=== PATIENT | female | born 1990 | race Caucasian/White ===

== ENCOUNTER 2018-11-22 12:49 | Emergency (ER) | payer MEDICAID, OTHER ==
[2018-11-22 13:10] VITALS: BP 119/76
--- NOTE | 2018-11-22 13:19 | ER Report ---
History and Physical Time Seen By MD: 13:10 HPI/ROS CHIEF COMPLAINT: direct admit to [facility] HISTORY OF PRESENT ILLNESS: Pt states she was in [facility] waiting to go to our psych floor. PT was accepted by Dr. Casey a few days ago as a direct admit to [facility] and has been awaiting for bed availablity. Bed became available. PT is not forthcoming with information. "your not the psychatrist". Pt denies wanting to kill herself. PT states they have been giving her the wrong medications in [facility] and that is why I am crazy. REVIEW OF SYSTEMS: PT refusing to answer accepts did say she felt "bloated". Allergies: Coded Allergies: latex (Verified Allergy, Unknown, RASH, 11/22/18) yi (Verified Allergy, Unknown, RASH, 11/22/18) acetaminophen (Verified Adverse Reaction, Unknown, MENTAL STATUS CHANGES, 11/22/18) aspirin (Verified Adverse Reaction, Unknown, 11/22/18) bruises hydrocodone (Verified Adverse Reaction, Unknown, MENTAL STATUS CHANGES, 11/22/18) Home Meds Reported Medications Diphenhydramine Hcl (BENADRYL) 25 Mg Capsule, 50 MG PO HS, CAPSULE 11/22/18 Quetiapine Fumarate (SEROQUEL) 400 Mg Tablet, 400 MG PO HS 11/22/18 Hydrocortisone 2.5% Oint (HYDROCORTISONE 2.5% OINT) 453.6 Gm Oint...g., 453.6 GM TP, TUBE 11/22/18 Spironolactone (SPIRONOLACTONE) 25 Mg Tablet, 100 MG PO BID, TAB 11/22/18 Doxycycline Hyclate (DOXYCYCLINE HYCLATE) 100 Mg Tablet, 100 MG PO BID 11/22/18 Levothyroxine Sodium (LEVOTHYROXINE SODIUM) 75 Mcg Tablet, 75 MCG PO QDAY, TAB 11/22/18 Past Medical/Surgical History pmhx: schizoaffective, fibromyalgia Pshx: c-s Reviewed Nurses Notes: Yes Hx Smoking: No Hx Alcohol Use: No Constitutional Vital Sign - Last 24 Hours 11/22/18 13:10 Temp 98.7 Pulse 98 Resp 18 B/P (MAP) 119/76 Pulse Ox 94 O2 Delivery Room Air Physical Exam General Appearance: The patient is alert, has no immediate need for airway protection and no signs of toxicity. Eyes: Pupils equal and round no pallor or injection ENT: no pharyngeal erythema or exudates, Mucous membranes are moist Respiratory: There are no retractions, lungs are clear to auscultation. Cardiovascular: Regular rate and rhythm. pulses are equal and symmetrical Gastrointestinal: Abdomen is soft and non tender, bowel sounds normal, no guarding, no rigidity or rebound Neurological: Cranial nerves II-XII grossly intact, no sensory or motor loss Musculoskeletal: ambulatory Psych: Tangential thought process DIFFERENTIAL DIAGNOSIS: After history and physical exam differential diagnosis was considered for medication adjustment, schizoaffecive Medical Decision Making Data Points Result Diagram: 11/22/18 1340 11/22/18 1340 Laboratory Hematology Test 11/22/18 13:40 Red Blood Count 4.85 M/uL (4.17-5.56) Mean Corpuscular Volume 92.9 fL (80.0-96.0) Mean Corpuscular Hemoglobin 31.7 pg (26.0-33.0) Mean Corpuscular Hemoglobin Concent 34.1 g/dL (32.0-36.0) Red Cell Distribution Width 13.7 % (11.5-14.5) Mean Platelet Volume 7.5 fL (7.2-11.1) Neutrophils (%) (Auto) 54.2 % (39.4-72.5) Lymphocytes (%) (Auto) 30.4 % (17.6-49.6) Monocytes (%) (Auto) 11.2 % (4.1-12.4) Eosinophils (%) (Auto) 3.2 % (0.4-6.7) Basophils (%) (Auto) 1.0 % (0.3-1.4) Nucleated RBC Relative Count (auto) 0.0 /100WBC Neutrophils # (Auto) 4.1 K/uL (2.0-7.4) Lymphocytes # (Auto) 2.3 K/uL (1.3-3.6) Monocytes # (Auto) 0.8 K/uL (0.3-1.0) Eosinophils # (Auto) 0.2 K/uL (0.0-0.5) Basophils # (Auto) 0.1 K/uL (0.0-0.1) Nucleated RBC Absolute Count (auto) 0.00 K/uL Sodium Level 139 mmol/L (137-145) Potassium Level 4.0 mmol/L (3.5-5.0) Chloride Level 110 mmol/L (98-107) Carbon Dioxide Level 24 mmol/L (22-31) Blood Urea Nitrogen 11 mg/dl (7-18) Creatinine 0.60 mg/dl (0.52-1.04) Glomerular Filtration Rate Calc > 60.0 Random Glucose 93 mg/dl (75-110) Calcium Level 8.9 mg/dl (8.4-10.2) Magnesium Level 2.0 mg/dl (1.7-2.2) Total Bilirubin 0.2 mg/dl (0.2-1.3) Aspartate Amino Transf (AST/SGOT) 25 U/L (0-35) Alanine Aminotransferase (ALT/SGPT) 25 U/L (0-56) Alkaline Phosphatase 61 U/L (0-126) Total Protein 7.9 g/dl (6.3-8.2) Albumin 4.5 g/dl (3.5-5.0) Human Chorionic Gonadotropin, Qual Negative (NEGATIVE) Salicylates Level < 10 mg/L Salicylate Last Dose Date unknown Acetaminophen Level < 10 ug/ml Serum Alcohol < 10 mg/dl Chemistry Test 11/22/18 13:40 White Blood Count 7.6 k/uL (4.5-11.0) Red Blood Count 4.85 M/uL (4.17-5.56) Hemoglobin 15.4 g/dL (12.0-16.0) Hematocrit 45.0 % (34.0-47.0) Mean Corpuscular Volume 92.9 fL (80.0-96.0) Mean Corpuscular Hemoglobin 31.7 pg (26.0-33.0) Mean Corpuscular Hemoglobin Concent 34.1 g/dL (32.0-36.0) Red Cell Distribution Width 13.7 % (11.5-14.5) Platelet Count 360 K/uL (150-450) Mean Platelet Volume 7.5 fL (7.2-11.1) Neutrophils (%) (Auto) 54.2 % (39.4-72.5) Lymphocytes (%) (Auto) 30.4 % (17.6-49.6) Monocytes (%) (Auto) 11.2 % (4.1-12.4) Eosinophils (%) (Auto) 3.2 % (0.4-6.7) Basophils (%) (Auto) 1.0 % (0.3-1.4) Nucleated RBC Relative Count (auto) 0.0 /100WBC Neutrophils # (Auto) 4.1 K/uL (2.0-7.4) Lymphocytes # (Auto) 2.3 K/uL (1.3-3.6) Monocytes # (Auto) 0.8 K/uL (0.3-1.0) Eosinophils # (Auto) 0.2 K/uL (0.0-0.5) Basophils # (Auto) 0.1 K/uL (0.0-0.1) Nucleated RBC Absolute Count (auto) 0.00 K/uL Glomerular Filtration Rate Calc > 60.0 Calcium Level 8.9 mg/dl (8.4-10.2) Magnesium Level 2.0 mg/dl (1.7-2.2) Total Bilirubin 0.2 mg/dl (0.2-1.3) Aspartate Amino Transf (AST/SGOT) 25 U/L (0-35) Alanine Aminotransferase (ALT/SGPT) 25 U/L (0-56) Alkaline Phosphatase 61 U/L (0-126) Total Protein 7.9 g/dl (6.3-8.2) Albumin 4.5 g/dl (3.5-5.0) Human Chorionic Gonadotropin, Qual Negative (NEGATIVE) Salicylates Level < 10 mg/L Salicylate Last Dose Date unknown Acetaminophen Level < 10 ug/ml Serum Alcohol < 10 mg/dl Toxicology Test 11/22/18 13:40 Salicylates Level < 10 mg/L Salicylate Last Dose Date unknown Acetaminophen Level < 10 ug/ml Serum Alcohol < 10 mg/dl ED Course/Re-evaluation ED Course 11/22/2018 1:12:32 pm PT was to be a direct admission to [facility] from [facility] but while awaiting bed availability she was in Custodial. Dr. Capellan asked if we could do a screening exam due to pt spent few days in [facility] and then can go upstairs. States she can do the blood work upstairs. Blood work drawn and pt placed in gown. Pt sent to [facility] Decision to Disposition Date: Nov 22, 2018 Decision to Disposition Time: 14:23 Depart Departure Latest Vital Signs Vital Signs Date Time Temp Pulse Resp B/P (MAP) Pulse Ox O2 Delivery O2 Flow Rate FiO2 11/22/18 13:10 98.7 98 18 119/76 94 Room Air Impression: Primary Impression: Encounter for medical screening examination Additional Impression: Schizo affective schizophrenia Condition: Stable Disposition: XFER TO [facility] Problem Qualifiers COTY LUCIANO DO Nov 22, 2018 13:19
[2018-11-22] MEDS ORDERED: DIPH-740 PO (13:20)
[2018-11-22] MEDS ORDERED: QUET400T11 PO (13:20)
[2018-11-22] MEDS ORDERED: DOXY-179 PO (13:20)
[2018-11-22] MEDS ORDERED: LEVO75TA73 PO (13:20)
[2018-11-22] MEDS ORDERED: HYDR453.8 TP (13:20)
[2018-11-22] MEDS ORDERED: SPIR25TA80 PO (13:20)
[2018-11-22 13:57] LABS: PLATELET COUNT, AUTOMATED 360 K/uL (150-450)
[2018-11-22] MEDS ORDERED: SPIR100T33 PO (17:16)
[2018-11-22] MEDS ORDERED: PRAZ1CAP26 PO (17:17)
== END 2018-11-22 13:52 ==
LOC: ER 13:36
DX: F25.9 Schizoaffective disorder, unspecified (principal)
CPT/HCPCS: 36415; 83735; 84443; 84703; 85025; 99284; G0480; 80320; 80329; 82040; 82247; 82310; 82374; 82435; 82565; 82947; 84075; 84132; 84155; 84295; 84450; 84460; 84520

== ENCOUNTER 2018-11-22 13:37 | Inpatient (IN) | payer MEDICAID, OTHER ==
[~2018-11-22] VITALS: Ht 165.1 cm; Wt 98.0 kg
[~2018-11-22 13:37] MED LIST: DIPH-740 PO; DOXY-179 PO; HYDR453.8 TP; LEVO75TA73 PO; QUET400T11 PO; SPIR25TA80 PO
[2018-11-22 13:55] VITALS: BP 120/80
[2018-11-22] MEDS ORDERED: SPIR100T33 PO (17:16)
[2018-11-22] MEDS ORDERED: PRAZ1CAP26 PO (17:17)
[2018-11-22] MEDS ORDERED: MAG HYD/AL HYD/SIMETH 30ML UDC PO PRN (17:20)
[2018-11-22] MEDS ORDERED: LORazepam 1 MG TAB PO PRN (17:35)
[2018-11-22 19:54] VITALS: BP 127/84
[2018-11-22] MEDS: SPIRONOLACTONE 25 MG TAB PO SCH (20:22)
[2018-11-22] MEDS: QUEtiapine FUM 100 MG TAB PO SCH (20:22)
[2018-11-22] MEDS ORDERED: diphenhydrAMINE 25 MG CAP PO ONE (21:00)
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
[2018-11-23 06:15] VITALS: BP 109/87
--- NOTE | 2018-11-23 06:18 | NUR ---
Patient reports sleeping well during the night, reports prior to falling asleep "hearing voices again." States she doesn't remember what they was saying. Was able to go back to sleep after am vitals. Resting with ou closed at this time. No s/s of distress or discomfort noted.
[2018-11-23] MEDS: DOXYCYCLINE HYCL 100 MG TAB PO SCH (08:38)
[2018-11-23] MEDS: SPIRONOLACTONE 25 MG TAB PO SCH ×2 (08:38→20:36)
[2018-11-23] MEDS: LORazepam 1 MG TAB PO SCH ×2 (11:12→20:31)
[2018-11-23 13:05] VITALS: BP 110/60
--- NOTE | 2018-11-23 14:37 | BHS Progress Note ---
BHS - Subjective Progress Notes Subjective Bibi took a PRN Ativan yesterday afternoon for agitation. She finally got to sleep after the Seroquel 800 mgs and slept through the night. She is somewhat less agitated this morning until we started talking about the circumstances of her admission. At this point, she begins to escalate rapidly with pressured speech and making bizarre statements such as her belief that her mother has secret cameras in their house, that the police have been coming into her house and "jacking off." Denies voices today but was hearing voices last night. Denies any desire to harm her mother or son. Suicidal Ideation: None Homicidal Ideation: None BHS - Objective Physical Exam Vital Signs 98.3 71 109/87, 93 Gait and Station: Steady BHS Medications Reviewed: Side Effects, Benefits of Medication Allergies Reviewed: Yes Mental Status Exam General Appearance: Psychomotor Agitation Speech: Other (pressured) Mood: Hyperthymic Affect: Anxious, Agitated Thought Process: Flight of Ideas Thought Content: Delusions, Auditory Halllucinations Sensorium: Clear Cognition: Alert & Oriented-Person, Alert & Oriented-Place, Alert & Oriented- Time, [id number], Other Memory: Immediate, Recent, Remote, Other Insight Judgment: Poor BHS Assessment and Plan [id number] Encounter Date: Nov 23, 2018 [id number] Encounter Time: 10:00 BHS Plan: Admit to Unit, Necessary Precautions, Individual/Group Therapy, Admin/Titrate Meds, Educate Patient Problems: (1) Schizoaffective disorder, bipolar type Condition Will start a routine Ativan 1 mg q 8h and continue other medications as ordered. TAI EVANS DO Nov 23, 2018 14:37
[2018-11-23] MEDS: QUEtiapine FUM 100 MG TAB PO SCH (20:34)
[2018-11-23 21:29] VITALS: BP 101/63
[2018-11-24] MEDS: LORazepam 1 MG TAB PO SCH (03:00)
[2018-11-24 05:44] VITALS: BP 104/83
[2018-11-24] MEDS: DOXYCYCLINE HYCL 100 MG TAB PO SCH (08:27)
[2018-11-24] MEDS: SPIRONOLACTONE 25 MG TAB PO SCH ×2 (08:28→20:20)
[2018-11-24] MEDS ORDERED: LORazepam 1 MG TAB PO SCH ×2 (09:00→17:00)
--- NOTE | 2018-11-24 11:40 | BHS Progress Note ---
[facility] - Subjective Progress Notes Subjective Seroquel 800 mgs at night daily Lorazepam 2 mgs every 8 hours We have stopped levothyroxine, prazosin, Zoloft. Bibi continues to improve. Her speech is much less pressured, she is not longer focusing on delusional ideas, she is less agitated. This morning. She says that she feels "stable" and her mood is "neutral." We are able to have a two-way conversation. She feels a bit drowsy this morning and, although she b elieves that the Ativan has helped her a lot, she does not feel that she needs as much. She denies feeling suicidal now. She says that she has not heard any voices in the last 24 hours. She has been sleeping well without nightmares suggesting that she does not need prazosin. Yesterday, Bibi met with our therapist and was still making a lot of statements with a sexual theme including her belief that her jhdz-rujh-kbc son was wanting her to touch his penis. Suicidal Ideation: None Homicidal Ideation: None [facility] - Objective Physical Exam Vital Signs 98.3, 71, 109/87, 93% Gait and Station: Steady [facility] Medications Reviewed: Side Effects, Benefits of Medication, Risks (specifically discussed the importance of using medications to address her psychotic symptoms and targeting schizoaffective disorder) Allergies Reviewed: Yes Mental Status Exam General Appearance: Casual, Well Groomed, Good Eye Contact, Cooperative, Polite, Good Interaction; No Psychomotor Agitation, No Psychomotor Retardation Speech: Clear, Spontaneous, Normal Rate, Normal Rhythm, Normal Volume, Normal Tone, Delayed, Slurred, Garbled, Rambling, Inappropriate, Other (no longer pressured) Mood: Euthymic; No Hyperthymic Affect: Neutral; No Anxious, No Agitated Thought Process: Logical, Goal Directed; No Flight of Ideas Thought Content: No Suicidal Ideation, No Homicidal Ideation; Delusions (no longer focusing on delusional themes.); No Auditory Halllucinations, No Visual Hallucinations Sensorium: Clear Cognition: Alert & Oriented-Person, Alert & Oriented-Place, Alert & Oriented- Time, Kimer-Rkgkjnjv-Mzgbzebif, Other Memory: Immediate, Recent, Remote, Other Intelligence: Average Insight Judgment: Fair [facility] Assessment and Plan Yyxe-xx-Xort Encounter Date: Nov 24, 2018 Agkw-im-Jbkl Encounter Time: 10:00 [facility] Plan: Necessary Precautions, Individual/Group Therapy, Admin/Titrate Meds, Educate Patient Problems: (1) Schizoaffective disorder, bipolar type Condition Bibi is making steady improvement. We agreed to reduce her lorazepam to once a day in the evenings when she finds her mood is the most difficult. Release planning needs to focus on placement as well as communicating with her outpatient providers that it is essential to target psychotic symptoms and mood instability. I would avoid using medications that could trigger fran, in particular, antidepressants, unless they are absolutely necessary and accompa nied by adequate control of psychotic symptoms and mood stabilizers. TAI EVANS DO Nov 24, 2018 11:39
[2018-11-24 17:51] VITALS: BP 116/62
[2018-11-24] MEDS: QUEtiapine FUM 100 MG TAB PO SCH (20:20)
[2018-11-25] MEDS: DOXYCYCLINE HYCL 100 MG TAB PO SCH (08:11)
[2018-11-25] MEDS: SPIRONOLACTONE 25 MG TAB PO SCH ×2 (08:11→20:54)
--- NOTE | 2018-11-25 10:09 | Antimicrobial Stewardship ---
Antimicrobial Time Out Antimicrobial Stewardship MD Service: Other (Psychiatrist) Indications: Other (acne) Antimicrobial Used Doxycycline 100 mg po qday Start Date: Nov 23, 2018 NASRIN LOBO Nov 25, 2018 10:09
[2018-11-25 14:00] VITALS: BP 102/71
[2018-11-25] MEDS: QUEtiapine FUM 100 MG TAB PO SCH (20:56)
--- NOTE | 2018-11-25 21:35 | BHS Progress Note ---
[facility] - Subjective Progress Notes Subjective Pt seen in treatment team meeting with staff. She continues to be disorganized in her thinking, fran is slowly getting better, but she still has a lot of psychomotor restlessness, hypergraphia-- she brought multiple pages of worksheets covered with writing including in the margins, elaborate pictures she had colored. She c/o feeling a little oversedated. We decided to dc her ativan and continue seroquel 800 mg q HS. She feels the seroquel is helping her "calm down." Her T4 came back as WNL, T3 is still pnd. Slept ok last night, though some awakenings. Still a lot of disorganized thinking and behavior, mild pressure of speech, mood/affect lability. Need to continue aggression precautions in this labile schizoaffective pt who is only slowly stabilizing. Suicidal Ideation: None Homicidal Ideation: None [facility] - Objective Physical Exam Vital Signs Vital Signs 11/24/18 11/25/18 17:51 14:00 Temp 98.4 Pulse 94 Resp 18 B/P (MAP) 102/71 (81) Pulse Ox 97 O2 Delivery Room Air Gait and Station: Steady [facility] Medications Reviewed: Side Effects, Benefits of Medication, Risks Allergies Reviewed: Yes Mental Status Exam General Appearance: Casual, Well Groomed, Good Eye Contact, Cooperative, Polite, Good Interaction, Psychomotor Agitation (wiggling in her seat, shuffling though her papers, showing us multiple pages with hypergraphia) Speech: Spontaneous, Normal Rhythm, Normal Volume, Normal Tone, Other (rapid speech but not pressured) Mood: Euthymic Affect: Neutral, Agitated (mildly) Thought Process: Logical, Goal Directed; No Flight of Ideas Thought Content: No Suicidal Ideation, No Homicidal Ideation; Delusions, Auditory Halllucinations; No Visual Hallucinations, No Thought Broadcasting, No Ideas of Reference, No Obsessions, No Compulsions; Other (alix AH at first but then talking about voices coming out of the heating vents) Sensorium: Clear Cognition: Alert & Oriented-Person, Alert & Oriented-Place, Alert & Oriented- Time, Qoogf-Quqolgps-Lhxqkzvud Memory: Immediate, Recent, Remote Intelligence: Average Insight Judgment: Fair Lab Hematology Test 11/24/18 15:06 Free Thyroxine 0.90 ng/dl (0.78-2.19) Chemistry Test 11/24/18 15:06 Free Thyroxine 0.90 ng/dl (0.78-2.19) [facility] Assessment and Plan Hihc-pq-Dsvm Encounter Date: Nov 25, 2018 Hgwn-ln-Wzlt Encounter Time: 09:00 [facility] Plan: Necessary Precautions, Individual/Group Therapy, Admin/Titrate Meds, Educate Patient Tobacco Medications: Started Multpiple Antipsychotics Used: No Problems: (1) Schizoaffective disorder, bipolar type (2) Iatrogenic hyperthyroidism GEO MARION MD Nov 25, 2018 21:35
[2018-11-26 06:11] VITALS: BP 96/59
[2018-11-26] MEDS: SPIRONOLACTONE 25 MG TAB PO SCH ×3 (07:55→21:05)
[2018-11-26] MEDS: DOXYCYCLINE HYCL 100 MG TAB PO SCH (07:56)
[2018-11-26] MEDS: ACETAMINOPHEN 325 MG TAB PO PRN (10:01)
[2018-11-26 12:56] VITALS: BP 93/74
--- NOTE | 2018-11-26 19:24 | BHS Progress Note ---
[facility] - Subjective Progress Notes Subjective Pt seen in conference room with team. Pt still showing manic and psychotic symptoms, ideas of reference-- talking about other peers here on the unit saying the word "alpha" which made her suspicious because her friend in the music industry wrote a song about "alpha and omega, and I don't know how that's all connected....... Then someone mentioned coconut shrimp, and I was just thinking about that so..." She is quite suspicious about these ideas of reference and can't connect ideas logically enough to express exactly why she is bothered by this. She is tolerating the D/C of ativan yesterday-- there has not been any agitation. She has still been talkative, busy, on the phone, with hypergraphia. No aggression. C/O mild oversedation each am, and wondering if seroquel dose is too high-- but we pointed out that she was on seroquel 1200 mg/day when she was D/C from [facility], also educated that this is only day 4 on 800 mg q hs, so she is likely to adjust to this side effect and tolerate this dose better after about 5-8 days on it. Will apply PPD today, since we are making application to pen[facility] in [place]. If she stabilizes here we might be able to transfer her there rather than [facility]. Suicidal Ideation: None Homicidal Ideation: None [facility] - Objective Physical Exam Vital Signs Vital Signs 11/26/18 11/26/18 06:11 12:56 Temp 98.2 Pulse 80 Resp 15 B/P (MAP) 93/74 (80) Pulse Ox 96 O2 Delivery Room Air Muscle Strength and Tone: WNL Gait and Station: Steady [facility] Medications Reviewed: Side Effects, Benefits of Medication, Risks Allergies Reviewed: Yes Mental Status Exam General Appearance: Casual, Well Groomed, Cooperative, Polite, Good Interaction, Psychomotor Agitation (restless) Speech: Spontaneous, Normal Rhythm, Normal Volume, Normal Tone, Other (rapid speech but not pressured) Mood: Euthymic Affect: Neutral, Agitated (labile, hyperthymic) Thought Process: No Flight of Ideas; Other (more circumstantial today) Thought Content: Delusions (ideas of reference, paranoia) Sensorium: Clear Cognition: Alert & Oriented-Person, Alert & Oriented-Place, Alert & Oriented- Time, Wbegp-Vvykxvaz-Tbdodxozq Memory: Immediate, Recent, Remote Intelligence: Average Insight Judgment: Poor (due to psychosis) [facility] Assessment and Plan Nixt-ng-Xvfd Encounter Date: Nov 26, 2018 Qhwo-fb-Goxy Encounter Time: 08:33 [facility] Plan: Necessary Precautions, Individual/Group Therapy, Admin/Titrate Meds, Educate Patient Tobacco Medications: Started Multpiple Antipsychotics Used: No Problems: (1) Schizoaffective disorder, bipolar type (2) Iatrogenic hyperthyroidism GEO MARION MD Nov 26, 2018 19:24
[2018-11-26] MEDS: QUEtiapine FUM 100 MG TAB PO SCH (21:05)
[2018-11-26 21:31] VITALS: BP 96/62
[2018-11-27 02:51] VITALS: BP 116/82
[2018-11-27] MEDS: OLANZapine 5 MG TAB PO PRN ×2 (02:56→22:04)
--- NOTE | 2018-11-27 02:57 | NUR ---
Pt got up to use the bathroom and then came out to the desk. While staff was checking her vitals, pt complained that "they took my nightmare medication off my list" and then went on to report that "last night, I woke up 42 times". (I observed the pt on the previous night on camera for the entire shift and only saw her wake up once to use the bathroom). She then stood at the desk for a few moments and ate several peppermints rapidly before asking politely for her PRN Zyprexa. When this was given, the pt logically commented that it was amazing to her how such a tiny thing (indicating the pill) could make such a big difference. I agreed with the patient. She then took the medication and went back to bed.
[2018-11-27] MEDS: DOXYCYCLINE HYCL 100 MG TAB PO SCH (08:07)
[2018-11-27] MEDS: SPIRONOLACTONE 25 MG TAB PO SCH ×2 (08:09→21:13)
[2018-11-27] MEDS: HYDROCORTISONE 1% CR 28.35 GM TP PRN (08:12)
[2018-11-27] MEDS ORDERED: INFLUENZA VIRUS VAC 0.5ML SYR IM ONLY ONE (11:10)
--- NOTE | 2018-11-27 11:51 | BHS Progress Note ---
[facility] - Subjective Progress Notes Subjective Pt seen in treatment team. Pt c/o nightmares and poor sleep last night, also c/o oversedation during the day. Therapist acknowledged that pt seemed mildly oversedated during yesterday's groups. Pt's fran and psychosis are still evident, but improving bit-by-bit. Pt requesting to go back on prazosin for nightmares which she has been on in past. We will also decrease seroquel to 600 mg q HS due to oversedation. She is still fairly pressured in her speech (tho much better than on admission) and if we continue to see this we may need to add mood stabilizer like VPA in addition to seroquel. Suicidal Ideation: None Homicidal Ideation: None [facility] - Objective Physical Exam Vital Signs Vital Signs 11/27/18 02:51 Temp 97.5 Pulse 122 Resp 16 B/P (MAP) 116/82 (93) Pulse Ox 96 O2 Delivery Room Air Muscle Strength and Tone: WNL Gait and Station: Steady [facility] Medications Reviewed: Side Effects, Benefits of Medication, Risks Allergies Reviewed: Yes Mental Status Exam General Appearance: Casual, Well Groomed, Cooperative, Polite, Good Interaction, Psychomotor Agitation (restless) Speech: Spontaneous, Normal Rhythm, Normal Volume, Normal Tone, Other (rapid speech but not pressured) Mood: Euthymic Affect: Neutral, Agitated (labile, hyperthymic) Thought Process: No Flight of Ideas; Other (more circumstantial today) Thought Content: Delusions (ideas of reference, paranoia) Sensorium: Clear Cognition: Alert & Oriented-Person, Alert & Oriented-Place, Alert & Oriented- Time, Nqopc-Isofvdcp-Axbuulogo Memory: Immediate, Recent, Remote Intelligence: Average Insight Judgment: Poor (due to psychosis) [facility] Assessment and Plan Wrix-ce-Juuz Encounter Date: Nov 27, 2018 Rhkr-df-Sxjf Encounter Time: 10:00 [facility] Plan: Necessary Precautions, Individual/Group Therapy, Admin/Titrate Meds, Educate Patient Tobacco Medications: Started Multpiple Antipsychotics Used: No Problems: (1) Schizoaffective disorder, bipolar type (2) Iatrogenic hyperthyroidism GEO MARION MD Nov 27, 2018 11:51
[2018-11-27 12:50] VITALS: BP 110/81
[2018-11-27] MEDS: PRAZOSIN HCL 1 MG CAP PO SCH (21:13)
[2018-11-27] MEDS: QUEtiapine FUM 100 MG TAB PO SCH (21:14)
[2018-11-27 22:41] VITALS: BP_SYST 114; BP_SYST 120; BP_DIAS 79; BP_DIAS 90
[2018-11-28] MEDS: DOXYCYCLINE HYCL 100 MG TAB PO SCH (08:18)
[2018-11-28] MEDS: SPIRONOLACTONE 25 MG TAB PO SCH ×2 (08:18→21:06)
[2018-11-28] MEDS: HYDROCORTISONE 1% CR 28.35 GM TP PRN (08:59)
[2018-11-28 14:14] VITALS: BP 111/81
--- NOTE | 2018-11-28 14:24 | BHS Progress Note ---
[facility] - Subjective Progress Notes Subjective Pt seen individually. She is doing better today, her thoughts are racing less and she is a bit more organized in her thinking. She still had interrupted sleep last night but less trouble with nightmares. Tolerating the decreased dose of seroquel, there is not any evidence so far of any worsening of her fran or her psychosis. She reports good appetite, says mood is "pretty good," says the AH are decreasing. Still awaiting [facility] placement-- we are also proceeding with application to [facility] in [place] in case she stabilizes here. Suicidal Ideation: None Homicidal Ideation: None [facility] - Objective Physical Exam Vital Signs Vital Signs 11/27/18 11/28/18 22:41 14:14 Temp 97.8 Pulse 98 Resp 16 B/P (MAP) 111/81 (91) Pulse Ox 95 O2 Delivery Room Air Muscle Strength and Tone: WNL Gait and Station: Steady [facility] Medications Reviewed: Side Effects, Benefits of Medication, Risks Allergies Reviewed: Yes Mental Status Exam General Appearance: Casual, Well Groomed, Cooperative, Polite, Good Interaction Speech: Spontaneous, Normal Rhythm, Normal Volume, Normal Tone, Other (rapid speech but not pressured) Mood: Euthymic Affect: Neutral, Agitated (labile, hyperthymic) Thought Process: Other (circumstantial to tangential) Thought Content: No Suicidal Ideation, No Homicidal Ideation; Delusions (ideas of reference, paranoia), Auditory Halllucinations; No Visual Hallucinations, No Thought Broadcasting, No Ideas of Reference, No Obsessions, No Compulsions, No Other Sensorium: Clear Cognition: Alert & Oriented-Person, Alert & Oriented-Place, Alert & Oriented- Time, Xvang-Xhsgvcrc-Woaqpjapz Memory: Immediate, Recent, Remote Intelligence: Average Insight Judgment: Poor (due to psychosis) [facility] Assessment and Plan Dmpf-fj-Dedq Encounter Date: Nov 28, 2018 Nhok-qs-Wtpi Encounter Time: 08:30 [facility] Plan: Necessary Precautions, Individual/Group Therapy, Admin/Titrate Meds, Educate Patient Tobacco Medications: Started Multpiple Antipsychotics Used: No Problems: (1) Schizoaffective disorder, bipolar type GEO MARION MD Nov 28, 2018 14:24
[2018-11-28] MEDS: ACETAMINOPHEN 325 MG TAB PO PRN (16:14)
[2018-11-28] MEDS: QUEtiapine FUM 100 MG TAB PO SCH (21:05)
[2018-11-28] MEDS: PRAZOSIN HCL 1 MG CAP PO SCH (21:06)
[2018-11-28 21:20] VITALS: BP 109/81
[2018-11-28] MEDS: OLANZapine 5 MG TAB PO PRN (23:28)
[2018-11-28 23:31] VITALS: BP 105/73
--- NOTE | 2018-11-28 23:33 | NUR ---
Pt came to the nurses station to ask for some medications, the RN requested that she could see her identification bracelet so she could scan it, the patient then got agitated and told the RN that she threw it in the garbage. This tech asked the patient her date to verify that the right bracelet was ordered. The patient was informed that it would be a little while before the identification bracelet printed. The patient raised her voice and said " She already got my date why do you need a new bracelet" she was told that it is policy that she wear an identification bracelet and when she would be getting a medication that is would be scanned. The patient went to her room and when the identification bracelet printed it was put on her wrist and the RN gave the medication.
[2018-11-29] MEDS: SPIRONOLACTONE 25 MG TAB PO SCH ×2 (08:16→21:04)
[2018-11-29] MEDS: DOXYCYCLINE HYCL 100 MG TAB PO SCH (08:16)
[2018-11-29] MEDS: HYDROCORTISONE 1% CR 28.35 GM TP PRN (08:54)
[2018-11-29 12:11] VITALS: BP 118/68
[2018-11-29] MEDS: OLANZapine 5 MG TAB PO PRN ×2 (14:11→21:40)
--- NOTE | 2018-11-29 14:52 | BHS Progress Note ---
[facility] - Subjective Progress Notes Subjective Pt seen in treatment team meeting. She is still pretty pressured in her speech, tangential. Last night she became verbally agitated with staff but no physical aggression. She c/o nightmares last night, and was delusional last night, thinking that she had cancer. She is not oversedated during the day-- given that we decreased seroquel from 800 mg to 600 mg three days ago, and now she is more symptomatic, we agreed to increase seroquel to 700 mg tonight. Awaiting [facility] placement or [facility] if she stabilizes first. Suicidal Ideation: None Homicidal Ideation: None [facility] - Objective Physical Exam Vital Signs Vital Signs 11/29/18 12:11 Temp 98.3 Pulse 99 Resp 18 B/P (MAP) 118/68 (85) Pulse Ox 95 O2 Delivery Room Air Muscle Strength and Tone: WNL Gait and Station: Steady [facility] Medications Reviewed: Side Effects, Benefits of Medication, Risks Allergies Reviewed: Yes Mental Status Exam General Appearance: Casual, Well Groomed, Cooperative, Polite, Good Interaction Speech: Spontaneous, Normal Rhythm, Normal Volume, Normal Tone, Other (rapid speech but not pressured) Mood: Euthymic Affect: Neutral, Agitated (labile, hyperthymic) Thought Process: Other (circumstantial to tangential) Thought Content: No Suicidal Ideation, No Homicidal Ideation; Delusions (delusion that she has cancer), Auditory Halllucinations; No Visual Hallucinations, No Thought Broadcasting, No Ideas of Reference, No Obsessions, No Compulsions, No Other Sensorium: Clear Cognition: Alert & Oriented-Person, Alert & Oriented-Place, Alert & Oriented- Time, Eilep-Cxxcojjf-Hwusvyjgr Memory: Immediate, Recent, Remote Intelligence: Average Insight Judgment: Poor (due to psychosis) [facility] Assessment and Plan Jsfd-ci-Nhhz Encounter Date: Nov 29, 2018 Efdd-md-Lfuf Encounter Time: 11:00 [facility] Plan: Necessary Precautions, Individual/Group Therapy, Admin/Titrate Meds, Educate Patient Tobacco Medications: Started Multpiple Antipsychotics Used: No Problems: (1) Schizoaffective disorder, bipolar type GEO MARION MD Nov 29, 2018 14:52
[2018-11-29 18:10] VITALS: BP 118/76
[2018-11-29] MEDS: QUEtiapine FUM 100 MG TAB PO SCH (21:04)
[2018-11-29] MEDS: PRAZOSIN HCL 1 MG CAP PO SCH (21:05)
[2018-11-29] MEDS: ACETAMINOPHEN 325 MG TAB PO PRN (21:40)
[2018-11-30 06:15] VITALS: BP 78/60
[2018-11-30] MEDS: SPIRONOLACTONE 25 MG TAB PO SCH ×2 (07:42→21:02)
[2018-11-30] MEDS: DOXYCYCLINE HYCL 100 MG TAB PO SCH (07:42)
[2018-11-30 10:35] VITALS: BP 108/80
--- NOTE | 2018-11-30 10:36 | BHS Progress Note ---
[facility] - Subjective Progress Notes Subjective "I came here because I was delusional, not because I was suicidal or homicidal. I might be going to the hospital, but maybe a [facility]. I was on the wrong medication and I have a court date coming up for breach of peace." Denies depression, thoughts of harming self Denies anxiety, states became angry yesterday as was tired at group time and encouraged to attend Denies mood swings, denies AVH, denies paranoia Irritable at time describing upcoming court dates, current charges she attributes to wrong medications, Abilify and Sertraline Energy level and appetite sufficient Previous meds: Zoloft, Abilify Suicidal Ideation: None Homicidal Ideation: None [facility] - Objective Physical Exam Vital Signs Medications (Trade) Dose Ordered Sig/Tere Route PRN Reason Start Time Stop Time Status Last Admin Dose Admin Acetaminophen (Tylenol(*)325 Mg Tab (Or Equiv)) 650 mg Q6H PRN PO FEVER/PAIN 11/26/18 09:50 12/26/18 09:49 11/29/18 21:40 Al Hydrox/Mg Hydrox/Simethicone (Maalox(*) 30 ml Udcup (Or Equiv)) 30 ml Q4H PRN PO DYSPEPSIA 11/22/18 17:20 12/22/18 17:19 11/27/18 14:46 Diphenhydramine HCl (Benadryl(*) 25 Mg Cap (Or Equiv)) 50 mg ONCE ONCE PO 11/22/18 21:00 11/22/18 21:01 DC 11/22/18 20:21 Doxycycline Hyclate (Vibramycin(*) 100 Mg Tab (Or Equiv)) 100 mg QDAY PO 11/23/18 09:00 12/07/18 08:59 11/30/18 07:42 Hydrocortisone (Cortisone 1% Cr 28.35 Gm Tube (Or Equiv)) APPLY TO AFFECTED AREAS BID PRN TP irritation 11/26/18 14:00 12/26/18 13:59 11/29/18 08:54 Influenza Virus Vaccine Quadrival (Flu Vac ([id number] Formula)) 0.5 ml ONCE ONCE IM ONLY 11/27/18 11:10 11/27/18 11:12 DC 11/27/18 11:50 Lorazepam (Ativan(*) 1 Mg Tab (Or Equiv)) 2 mg DAILY@1700 PO 11/24/18 17:00 11/25/18 10:02 DC 11/24/18 17:01 Olanzapine (zyPREXA (OR EQUIV)) 5 mg Q6H PRN PO ANXIETY/AGITATION 11/25/18 10:05 12/25/18 10:04 11/29/18 21:40 Prazosin HCl (Minipress 1 Mg Cap (Or Equiv)) 1 mg QHS PO 11/27/18 21:00 12/27/18 20:59 11/29/18 21:05 Quetiapine Fumarate (SEROquel 100 MG TAB (OR EQUIV)) 700 mg QHS PO 11/29/18 21:00 12/29/18 20:59 11/29/18 21:04 Spironolactone (Aldactone 25 Mg Tab (Or Equiv)) 100 mg BID PO 11/27/18 09:00 12/27/18 08:59 11/30/18 07:42 Laboratory Tests 11/24/18 15:06: Free Thyroxine 0.90, Free Triiodothyronine 3.0 11/26/18 16:25: Tuberculin Skin Test 0 Vital Signs Date Time Temp Pulse Resp B/P (MAP) Pulse Ox O2 Delivery O2 Flow Rate FiO2 11/30/18 06:15 98.0 84 78/60 (66) 96 Room Air 11/29/18 18:10 16 Muscle Strength and Tone: WNL Gait and Station: Steady [facility] Medications Reviewed: Side Effects, Benefits of Medication, Risks Allergies Reviewed: Yes Mental Status Exam General Appearance: Casual, Well Groomed, Cooperative, Polite, Good Interaction Speech: Spontaneous, Normal Rhythm, Normal Volume, Normal Tone, Rambling, Other (rapid speech but not pressured) Mood: No Euthymic; Other (irritable) Affect: Neutral, Agitated (labile, hyperthymic) Thought Process: Other (circumstantial to tangential) Thought Content: No Suicidal Ideation, No Homicidal Ideation; Delusions (delusion that she has cancer), Auditory Halllucinations; No Visual Hallucinations, No Thought Broadcasting, No Ideas of Reference, No Obsessions, No Compulsions, No Other Sensorium: Clear Cognition: Alert & Oriented-Person, Alert & Oriented-Place, Alert & Oriented- Time, Dzgqm-Lqhumrym-Hrpqqcklw Memory: Immediate, Recent, Remote Intelligence: Average Insight Judgment: Poor (due to psychosis) Lab Allergies Coded Allergies latex (Verified Allergy, Unknown, RASH, 11/22/18) yi (Verified Allergy, Unknown, RASH, 11/22/18) aspirin (Verified Adverse Reaction, Unknown, 11/22/18) bruises hydrocodone (Verified Adverse Reaction, Unknown, MENTAL STATUS CHANGES, 11/22/18) Microbiology Current Medications Medications (Trade) Dose Ordered Sig/Tere Route PRN Reason Start Time Stop Time Status Last Admin Dose Admin Al Hydrox/Mg Hydrox/Simethicone (Maalox(*) 30 ml Udcup (Or Equiv)) 30 ml Q4H PRN PO DYSPEPSIA 11/22/18 17:20 12/22/18 17:19 11/27/18 14:46 Quetiapine Fumarate (SEROquel 100 MG TAB (OR EQUIV)) 800 mg QHS PO 11/22/18 21:00 11/27/18 10:02 DC 11/26/18 21:05 Quetiapine Fumarate (SEROquel 100 MG TAB (OR EQUIV)) 200 mg Q6H PRN PO AGITATION 11/22/18 17:25 12/22/18 17:24 Diphenhydramine HCl (Benadryl(*) 25 Mg Cap (Or Equiv)) 50 mg ONCE ONCE PO 11/22/18 21:00 11/22/18 21:01 DC 11/22/18 20:21 Spironolactone (Aldactone 25 Mg Tab (Or Equiv)) 100 mg BID PO 11/22/18 21:00 11/27/18 07:55 DC 11/26/18 21:05 Doxycycline Hyclate (Vibramycin(*) 100 Mg Tab (Or Equiv)) 100 mg QDAY PO 11/23/18 09:00 12/07/18 08:59 11/30/18 07:42 Lorazepam (Ativan(*) 1 Mg Tab (Or Equiv)) 2 mg Q6H PRN PO SEVERE AGITATION 11/22/18 17:35 11/25/18 10:02 DC 11/22/18 18:45 Lorazepam (Ativan(*) 1 Mg Tab (Or Equiv)) 1 mg Q8H@0300,1100,1900 PO 11/23/18 10:45 11/24/18 09:01 DC 11/23/18 20:31 Lorazepam (Ativan(*) 1 Mg Tab (Or Equiv)) 1 mg TID@0900,1400,2100 PO 11/24/18 09:00 11/24/18 09:29 DC 11/24/18 09:19 Lorazepam (Ativan(*) 1 Mg Tab (Or Equiv)) 2 mg DAILY@1700 PO 11/24/18 17:00 11/25/18 10:02 DC 11/24/18 17:01 Olanzapine (zyPREXA (OR EQUIV)) 5 mg Q6H PRN PO ANXIETY/AGITATION 11/25/18 10:05 12/25/18 10:04 11/29/18 21:40 Acetaminophen (Tylenol(*)325 Mg Tab (Or Equiv)) 650 mg Q6H PRN PO FEVER/PAIN 11/26/18 09:50 12/26/18 09:49 11/29/18 21:40 Hydrocortisone (Cortisone 1% Cr 28.35 Gm Tube (Or Equiv)) APPLY TO AFFECTED AREAS BID PRN TP irritation 11/26/18 14:00 12/26/18 13:59 11/29/18 08:54 Spironolactone (Aldactone 25 Mg Tab (Or Equiv)) 100 mg BID PO 11/27/18 09:00 12/27/18 08:59 11/30/18 07:42 Quetiapine Fumarate (SEROquel 100 MG TAB (OR EQUIV)) 600 mg QHS PO 11/27/18 21:00 11/29/18 11:37 DC 11/28/18 21:05 Prazosin HCl (Minipress 1 Mg Cap (Or Equiv)) 1 mg QHS PO 11/27/18 21:00 12/27/18 20:59 11/29/18 21:05 Influenza Virus Vaccine Quadrival (Flu Vac ([id number] Formula)) 0.5 ml ONCE ONCE IM ONLY 11/27/18 11:10 11/27/18 11:12 DC 11/27/18 11:50 Quetiapine Fumarate (SEROquel 100 MG TAB (OR EQUIV)) 700 mg QHS PO 11/29/18 21:00 12/29/18 20:59 11/29/18 21:04 [facility] Assessment and Plan Tctu-tp-Aljo Encounter Date: Nov 30, 2018 Aovs-ta-Dnlr Encounter Time: 10:26 [facility] Plan: Necessary Precautions, Individual/Group Therapy, Admin/Titrate Meds, Educate Patient Tobacco Medications: Started Multpiple Antipsychotics Used: No Problems: (1) Schizoaffective disorder, bipolar type Condition Continue Quetiapine, Prazosin Encourage coping mechanisms Maintain precautions DANIEL ROMERO NP Nov 30, 2018 10:36
[2018-11-30] MEDS: OLANZapine 5 MG TAB PO PRN ×2 (10:44→21:20)
[2018-11-30 18:00] VITALS: BP 108/78
[2018-11-30] MEDS: QUEtiapine FUM 100 MG TAB PO SCH (21:02)
[2018-11-30] MEDS: PRAZOSIN HCL 1 MG CAP PO SCH (21:02)
[2018-12-01] MEDS: OLANZapine 5 MG TAB PO PRN (03:08)
[2018-12-01 05:58] VITALS: BP 98/62
[2018-12-01] MEDS: HYDROCORTISONE 1% CR 28.35 GM TP PRN (08:31)
[2018-12-01] MEDS: DOXYCYCLINE HYCL 100 MG TAB PO SCH (08:32)
[2018-12-01] MEDS: SPIRONOLACTONE 25 MG TAB PO SCH ×2 (08:32→20:15)
--- NOTE | 2018-12-01 10:18 | BHS Progress Note ---
BHS - Subjective Progress Notes Subjective "I talked to my mom and she wants me to go to the intermediate. I really don't want to go because of my bad experiences." Previous group hones in [place], [place] Sleep sufficient, denies AVH or paranoia, reports nightmares Speech slightly pressured, tangential Denies depression or anger, anxiety "Just about where I'm going," Suicidal Ideation: None Homicidal Ideation: None Suicidal Ideation: None Homicidal Ideation: None [facility] - Objective Physical Exam Vital Signs Laboratory Tests 11/24/18 15:06: Free Thyroxine 0.90, Free Triiodothyronine 3.0 11/26/18 16:25: Tuberculin Skin Test 0 Allergies Coded Allergies latex (Verified Allergy, Unknown, RASH, 11/22/18) yi (Verified Allergy, Unknown, RASH, 11/22/18) aspirin (Verified Adverse Reaction, Unknown, 11/22/18) bruises hydrocodone (Verified Adverse Reaction, Unknown, MENTAL STATUS CHANGES, 11/22/18) Laboratory Tests 11/24/18 15:06: Free Thyroxine 0.90, Free Triiodothyronine 3.0 11/26/18 16:25: Tuberculin Skin Test 0 Medications (Trade) Dose Ordered Sig/Tere Route PRN Reason Start Time Stop Time Status Last Admin Dose Admin Acetaminophen (Tylenol(*)325 Mg Tab (Or Equiv)) 650 mg Q6H PRN PO FEVER/PAIN 11/26/18 09:50 12/26/18 09:49 11/29/18 21:40 Al Hydrox/Mg Hydrox/Simethicone (Maalox(*) 30 ml Udcup (Or Equiv)) 30 ml Q4H PRN PO DYSPEPSIA 11/22/18 17:20 12/22/18 17:19 11/27/18 14:46 Diphenhydramine HCl (Benadryl(*) 25 Mg Cap (Or Equiv)) 50 mg ONCE ONCE PO 11/22/18 21:00 11/22/18 21:01 DC 11/22/18 20:21 Doxycycline Hyclate (Vibramycin(*) 100 Mg Tab (Or Equiv)) 100 mg QDAY PO 11/23/18 09:00 12/07/18 08:59 12/01/18 08:32 Hydrocortisone (Cortisone 1% Cr 28.35 Gm Tube (Or Equiv)) APPLY TO AFFECTED AREAS BID PRN TP irritation 11/26/18 14:00 12/26/18 13:59 12/01/18 08:31 Influenza Virus Vaccine Quadrival (Flu Vac ([id number] Formula)) 0.5 ml ONCE ONCE IM ONLY 11/27/18 11:10 11/27/18 11:12 DC 11/27/18 11:50 Lorazepam (Ativan(*) 1 Mg Tab (Or Equiv)) 2 mg DAILY@1700 PO 11/24/18 17:00 11/25/18 10:02 DC 11/24/18 17:01 Olanzapine (zyPREXA (OR EQUIV)) 5 mg Q6H PRN PO ANXIETY/AGITATION 11/25/18 10:05 12/25/18 10:04 12/01/18 03:08 Prazosin HCl (Minipress 1 Mg Cap (Or Equiv)) 1 mg QHS PO 11/27/18 21:00 12/27/18 20:59 11/30/18 21:02 Quetiapine Fumarate (SEROquel 100 MG TAB (OR EQUIV)) 700 mg QHS PO 11/29/18 21:00 12/29/18 20:59 11/30/18 21:02 Spironolactone (Aldactone 25 Mg Tab (Or Equiv)) 100 mg BID PO 11/27/18 09:00 12/27/18 08:59 12/01/18 08:32 Muscle Strength and Tone: WNL Gait and Station: Steady [facility] Medications Reviewed: Side Effects, Benefits of Medication, Risks Allergies Reviewed: Yes Mental Status Exam General Appearance: Casual, Well Groomed, Good Eye Contact, Cooperative, Polite, Good Interaction Speech: Spontaneous; No Normal Rhythm (slightly pressured); Normal Volume, Normal Tone, Rambling, Other (rapid speech but not pressured) Mood: Euthymic, Other Affect: Full and Appropriate, Calm, Neutral; No Agitated (labile, hyperthymic) Thought Process: Other (circumstantial to tangential) Thought Content: No Suicidal Ideation, No Homicidal Ideation; Delusions (delusion that she has cancer), Auditory Halllucinations; No Visual Hallucinations, No Thought Broadcasting, No Ideas of Reference, No Obsessions, No Compulsions, No Other Sensorium: Clear Cognition: Alert & Oriented-Person, Alert & Oriented-Place, Alert & Oriented- Time, Wnywa-Ugdnfcar-Devzixhfr Memory: Immediate, Recent, Remote Intelligence: Average Insight Judgment: Poor (due to psychosis) [facility] Assessment and Plan Vrel-ye-Jils Encounter Date: Dec 01, 2018 Rkgp-ae-Uthu Encounter Time: 10:14 [facility] Plan: Necessary Precautions, Individual/Group Therapy, Admin/Titrate Meds, Educate Patient Tobacco Medications: Started Multpiple Antipsychotics Used: No Problems: (1) Schizoaffective disorder, bipolar type Status: Chronic Condition Continue current medications and treatment Obtain EKG Treatment team 12/02/18, awaiting [facility] transfer or intermediate placement Maintain precautions DANIEL ROMERO NP Dec 01, 2018 10:18
--- NOTE | 2018-12-01 12:45 | EKG ---
[place] [facility] [place] NAME: DAJA HUTCHINSON : [id number] MR: [id number] V: [id number] EXAM DATE: ORDERING PHYSICIAN: DANIEL ROMERO TECHNOLOGIST: GREGORY Test Reason : ANTIPSYCHOTIC USE Blood Pressure : / mmHG Vent. Rate : 086 BPM Atrial Rate : 086 BPM P-R Int : 144 ms QRS Dur : 090 ms QT Int : 350 ms P-R-T Axes : 050 038 018 degrees QTc Int : 418 ms Normal sinus rhythm Normal ECG No previous ECGs available Confirmed by Marek Stoll ([id number]) on 12/01/2018 3:30:23 PM Referred By: HEATHER Confirmed By:Marek Alanis
[2018-12-01 16:00] VITALS: BP 112/64
[2018-12-01] MEDS: PRAZOSIN HCL 1 MG CAP PO SCH (20:15)
[2018-12-01] MEDS: QUEtiapine FUM 100 MG TAB PO SCH (20:16)
[2018-12-02 05:44] VITALS: BP 97/63
[2018-12-02] MEDS: DOXYCYCLINE HYCL 100 MG TAB PO SCH (07:57)
[2018-12-02] MEDS: SPIRONOLACTONE 25 MG TAB PO SCH ×2 (07:58→20:54)
[2018-12-02] MEDS: HYDROCORTISONE 1% CR 28.35 GM TP PRN ×3 (07:58→18:16)
[2018-12-02] MEDS: carBAMazepine 200 MG TAB PO SCH ×2 (09:32→20:54)
[2018-12-02 14:28] VITALS: BP 112/68
--- NOTE | 2018-12-02 15:12 | BHS Progress Note ---
[facility] - Subjective Progress Notes Subjective Pt seen in treatment team meeting-- we called mother on speaker but no answer. Pt's affect over past 4 days more labile-- sudden irritation, anger, yelling-- at other times cooperative. Aggression precautions started again on Sunday due to loud voice and posturing. Still pressure of speech, quite zqgxpxvzkjinjk-fh-khmicgqttd, still delusions. We discussed mood stabilizers, and she says tegretol worked well for her in past. She agreed to restart it, I believe she is not going to stabilize with seroquel as monotherapy. Will monitor relevant labs. Continue aggression precautions for now. Still on the wait list for [facility]. Suicidal Ideation: None Homicidal Ideation: None [facility] - Objective Physical Exam Vital Signs Vital Signs 12/02/18 12/02/18 05:44 14:28 Temp 97.9 Pulse 88 Resp 15 B/P (MAP) 112/68 (83) Pulse Ox 96 O2 Delivery Room Air Muscle Strength and Tone: WNL Gait and Station: Steady [facility] Medications Reviewed: Side Effects, Benefits of Medication, Risks Allergies Reviewed: Yes Mental Status Exam General Appearance: Casual, Well Groomed, Good Eye Contact, Cooperative, Polite, Good Interaction Speech: Spontaneous, Normal Rhythm (slightly pressured), Normal Volume (louder), Normal Tone, Rambling, Other Mood: Euthymic Affect: Agitated (labile, hyperthymic) Thought Process: Other (circumstantial to tangential) Thought Content: No Suicidal Ideation, No Homicidal Ideation; Delusions (reports "delusions again last night), Auditory Halllucinations; No Visual Hallucinations, No Thought Broadcasting, No Ideas of Reference, No Obsessions, No Compulsions, No Other Sensorium: Clear Cognition: Alert & Oriented-Person, Alert & Oriented-Place, Alert & Oriented-Time, Ewmmi-Lzyqtupn-Riztgveje Memory: Immediate, Recent, Remote Intelligence: Average Insight Judgment: Poor (due to psychosis) [facility] Assessment and Plan Ktxh-le-Zicx Encounter Date: Dec 02, 2018 Xvjd-cq-Yuwo Encounter Time: 09:00 [facility] Plan: Necessary Precautions, Individual/Group Therapy, Admin/Titrate Meds, Educate Patient Tobacco Medications: Started Multpiple Antipsychotics Used: No Problems: (1) Schizoaffective disorder, bipolar type Status: Chronic GEO MARION MD Dec 02, 2018 15:12
--- NOTE | 2018-12-02 15:40 | NUR ---
REPORT FROM EVER/RN. WILL ASSUME CARE OF PT AT THIS TIME. PT ASKED RN IF TEGRETOL IS SAFE FOR . DAJA WAS TOLD IT WAS A CATEGORY D, WHICH IS UNSAFE FOR . PT STATES SHE STILL FEELS SHE IS . "12-16 WKS". REASSURED SHE HAD BLOOD SERUM HCG WHICH WAS NEGATIVE ON 11/22/18. ASKED PT IF SHE WOULD FEEL BETTER IF WE REPEATED THE TEST. PT DECLINED BECAUSE SHE STILL THINKS "IT WOULD TURN UP NEGATIVE". DAJA ALSO STATES SHE DID NOT LIKE THE WAY IT MADE HER FEEL. SHE FELT "ANXIOUS, THOUGHT SHE WAS SUICIDAL". I ASKED PT IF SHE IS SUICIDAL RIGHT NOW, SHE STATES "I WILL BE OK", "NO". DR. MARION HAS BEEN INFORMED AND WILL SPEAK TO PT. SANAM STATES SHE AGREED TO TAKING THE TEGRETOL LONG SHE HAS A MULTIVITAMIN IN THE AM.
[2018-12-02] MEDS: QUEtiapine FUM 100 MG TAB PO SCH (20:53)
[2018-12-03] MEDS: QUEtiapine FUM 100 MG TAB PO PRN ×2 (00:18→18:02)
[2018-12-03 05:58] VITALS: BP 101/71
[2018-12-03] MEDS: HYDROCORTISONE 1% CR 28.35 GM TP PRN (07:55)
[2018-12-03] MEDS: DOXYCYCLINE HYCL 100 MG TAB PO SCH (07:56)
[2018-12-03] MEDS: carBAMazepine 200 MG TAB PO SCH ×2 (07:56→20:22)
[2018-12-03] MEDS: SPIRONOLACTONE 25 MG TAB PO SCH ×2 (07:57→20:22)
--- NOTE | 2018-12-03 12:27 | BHS Progress Note ---
[facility] - Subjective Progress Notes Subjective Pt seen in conference room with team. She is still reporting delusions, "My delusions come at night a lot, It was something about my ex BF, but I don't want to say." She denies AH. Yesterday afternoon I spoke with her again abouot Tegretol, since she had informed nursing staff that she was not going to take it because she was . She said she knew we wouldn't believe her, and she knew her test was negative, but she was sure of it. I showed her information regarding tegretol in (the only link is neural tube defects) and she agreed to take it as long as she could also take a multivitamin. She has tolerated it well today. Still hypo manic with pressured speech, labile, busy, tangential. Continue seroquel and tegretol. Suicidal Ideation: None Homicidal Ideation: None [facility] - Objective Physical Exam Vital Signs Vital Signs 12/03/18 05:58 Temp 97.7 Pulse 134 Resp 15 B/P (MAP) 101/71 (81) Pulse Ox 94 O2 Delivery Room Air Muscle Strength and Tone: WNL Gait and Station: Steady [facility] Medications Reviewed: Side Effects, Benefits of Medication, Risks Allergies Reviewed: Yes Mental Status Exam General Appearance: Casual, Well Groomed, Good Eye Contact, Cooperative, Polite, Good Interaction, Psychomotor Agitation Speech: Spontaneous, Normal Rhythm (pressured), Normal Volume (loud), Rambling, Other Mood: Euthymic Affect: Agitated (labile, hyperthymic) Thought Process: Other (circumstantial to tangential) Thought Content: No Suicidal Ideation, No Homicidal Ideation; Delusions (delusion that she is pseudocyesis); No Auditory Halllucinations, No Visual Hallucinations, No Thought Broadcasting, No Ideas of Reference, No Obsessions, No Compulsions, No Other Sensorium: Clear Cognition: Alert & Oriented-Person, Alert & Oriented-Place, Alert & Oriented- Time, Wnegt-Ckqfbdmy-Kxyonzycm Memory: Immediate, Recent, Remote Intelligence: Average Insight Judgment: Poor (due to psychosis) [facility] Assessment and Plan Kadx-on-Rwdr Encounter Date: Dec 03, 2018 Pbek-of-Ozhm Encounter Time: 09:00 [facility] Plan: Necessary Precautions, Individual/Group Therapy, Admin/Titrate Meds, Educate Patient Tobacco Medications: Started Multpiple Antipsychotics Used: No Problems: (1) Schizoaffective disorder, bipolar type Status: Chronic GEO MARION MD Dec 03, 2018 12:27
[2018-12-03 14:02] VITALS: BP 104/78
[2018-12-03] MEDS: ACETAMINOPHEN 325 MG TAB PO PRN ×2 (14:03→20:22)
--- NOTE | 2018-12-03 17:45 | NUR ---
Pt started to become agitated shortly before supper at 1645. Started becoming suspicious of other new patients on the floor. Went to eat. At approximately 1745 pt voice started to get louder and cursing increased. She started to walk up and down the [place] at other patients and rooms. She was asked if she would go to her room with the nurse and talk about what was bothering her, pt refused. Medication was offered to help her to calm down. She continued to escalate. It was explained that if she did not calm and go to her room we would have her go to Unit [address] for her and others safety. Pt refused. Juany corina mccann was called. Pt was asked calmly to go to unit C this time she complied and got into bed. I took her PRN medication to her to help her calm down. Pt started crying, talking loudly about how "certain musicians were writing music about her and making money off of her". Talked about them stalking her. Pt took medication. she continued to talk about the musicians, people stalking her, people (patients and staff) knowing what triggers her and doing it on purpose. Discussed her past boyfriend, mother and son. After about 90min. Pt started to talk calmly. A snack was given. It was explained to her that she should stay in unit C until tomorrow to stay safe, fearing patients may unknowingly trigger her again. Pt agreed and apologized. Night time medications given to patient without problems. 2116 pt currently resting in bed with eyes closed respirations regular. Addendum: 12/03/18 at 2120 by STEVE CALI RN Amended: Links added.
[2018-12-03] MEDS: QUEtiapine FUM 100 MG TAB PO SCH (20:22)
[2018-12-03 21:04] VITALS: BP 116/85
[2018-12-03] MEDS ORDERED: diphenhydrAMINE 25 MG CAP PO PRN (23:30)
[2018-12-03] MEDS ORDERED: WATER STERILE 10 ML VIAL IM ONLY PRN (23:30)
[2018-12-03] MEDS ORDERED: OLANZapine 5 MG TAB PO PRN (23:30)
[2018-12-03] MEDS ORDERED: OLANZapine 10 MG VIAL IM ONLY PRN (23:30)
[2018-12-03] MEDS ORDERED: LORazepam 1 MG TAB PO PRN (23:30)
[2018-12-04 05:46] VITALS: BP 110/81
[2018-12-04] MEDS: carBAMazepine 200 MG TAB PO SCH ×2 (08:18→21:14)
[2018-12-04] MEDS: SPIRONOLACTONE 25 MG TAB PO SCH ×2 (08:18→21:14)
[2018-12-04] MEDS: HYDROCORTISONE 1% CR 28.35 GM TP PRN (08:18)
[2018-12-04] MEDS: DOXYCYCLINE HYCL 100 MG TAB PO SCH (08:19)
[2018-12-04 13:23] VITALS: BP 119/97
[2018-12-04] MEDS: ACETAMINOPHEN 325 MG TAB PO PRN (14:19)
--- NOTE | 2018-12-04 16:19 | BHS Progress Note ---
S - Subjective Progress Notes Subjective Pt seen in treatment team meeting. She was irritable, pressured, and reporting lots of delusional material, how people are reading her mind and then putting her thoughts into rap songs. She quickly escalated and became verbally aggressive, cursing at staff. As we walked her back to Unit C, she cursed at two other patients. Later after she calmed down I talked with her about her meds, and she agrees to increase standing dose of seroquel to 900 mg q HS. She stayed calm throughout the morning, so we brought her out of seclusion into the adolescent area, where she will still have low stimulation. Hopefully she will benefit from increase in meds and be able to re-join the [facility] tomorrow. Suicidal Ideation: None Homicidal Ideation: None [facility] - Objective Physical Exam Vital Signs Vital Signs 12/04/18 12/04/18 05:46 13:23 Temp 97.6 Pulse 114 Resp 15 B/P (MAP) 119/97 (104) Pulse Ox 93 O2 Delivery Room Air Muscle Strength and Tone: WNL Gait and Station: Steady [facility] Medications Reviewed: Side Effects, Benefits of Medication, Risks Allergies Reviewed: Yes Mental Status Exam General Appearance: Casual, Well Groomed, Psychomotor Agitation, Other (yelling cussing) Speech: Spontaneous, Rambling, Inappropriate, Other (yelling, loud pressured) Mood: Dysthmic/Depressed, Hyperthymic (angry), Other Affect: Agitated (labile, hyperthymic) Thought Process: Other (circumstantial to tangential) Thought Content: No Suicidal Ideation, No Homicidal Ideation; Delusions (delusion that she is pseudocyesis, also multiple ideas of reference, paranoid delusions); No Auditory Halllucinations, No Visual Hallucinations, No Thought Broadcasting, No Ideas of Reference, No Obsessions, No Compulsions, No Other Sensorium: Clear Cognition: Alert & Oriented-Person, Alert & Oriented-Place, Alert & Oriented-Time, Wdvij-Dbdnxilo-Fhomkbxqa Memory: Immediate, Recent, Remote Intelligence: Average Insight Judgment: Poor (due to psychosis) [facility] Assessment and Plan Myog-vp-Aqae Encounter Date: Dec 04, 2018 Efyf-nz-Nmlh Encounter Time: 09:00 [facility] Plan: Necessary Precautions, Individual/Group Therapy, Admin/Titrate Meds, Educate Patient Tobacco Medications: Started Multpiple Antipsychotics Used: No Problems: (1) Schizoaffective disorder, bipolar type Status: Chronic GEO MARION MD Dec 04, 2018 16:19
[2018-12-04] MEDS: QUEtiapine FUM 100 MG TAB PO SCH (21:15)
[2018-12-04] MEDS ORDERED: QUEtiapine FUM 100 MG TAB PO ONE (21:25)
[2018-12-04 21:49] VITALS: BP 121/81
[2018-12-05 05:01] VITALS: BP 122/78
[2018-12-05 07:55] LABS: PLATELET COUNT, AUTOMATED 308 K/uL (150-450)
[2018-12-05] MEDS: carBAMazepine 200 MG TAB PO SCH ×2 (08:38→21:03)
[2018-12-05] MEDS: DOXYCYCLINE HYCL 100 MG TAB PO SCH (08:38)
[2018-12-05] MEDS: SPIRONOLACTONE 25 MG TAB PO SCH ×2 (08:38→21:01)
[2018-12-05] MEDS: HYDROCORTISONE 1% CR 28.35 GM TP PRN (08:39)
--- NOTE | 2018-12-05 14:45 | BHS Progress Note ---
S - Subjective Progress Notes Subjective Pt seen individually. She denied c/o's to me, seemed calmer and in a relatively good mood, was less pressured. Later in the day she became irritable, verbally aggressive with staff: "If you wake me up again I'm gonna cut your f---ing heads off," then slammed her door. Pt. remains in [facility], and she said angrily that she wants to stay there. She did comply with the increased dose of seroquel 900 mg last night. Labs today show carbemazapine level in the therapeutic range at 7.3, although given her continued mood instability would like to increase dose a bit (range goes up to 12). Awaiting [facility] placement. Suicidal Ideation: None Homicidal Ideation: None [facility] - Objective Physical Exam Vital Signs Vital Signs 12/05/18 05:01 Temp 97.2 Pulse 88 Resp 15 B/P (MAP) 122/78 (93) Pulse Ox 94 O2 Delivery Room Air Muscle Strength and Tone: WNL Gait and Station: Steady [facility] Medications Reviewed: Side Effects, Benefits of Medication, Risks Allergies Reviewed: Yes Mental Status Exam General Appearance: Casual, Well Groomed, Psychomotor Agitation, Other (yelling cussing) Speech: Spontaneous, Rambling, Inappropriate, Other (yelling, loud pressured) Mood: Dysthmic/Depressed, Hyperthymic (angry) Affect: Agitated (labile, hyperthymic) Thought Process: Other (circumstantial to tangential) Thought Content: No Suicidal Ideation, No Homicidal Ideation; Delusions (delusion that she is pseudocyesis, also multiple ideas of reference, paranoid delusions); No Auditory Halllucinations, No Visual Hallucinations, No Thought Broadcasting, No Ideas of Reference, No Obsessions, No Compulsions, No Other Sensorium: Clear Cognition: Alert & Oriented-Person, Alert & Oriented-Place, Alert & Oriented- Time, Cihgr-Ryzxusor-Mhkrvwzec Memory: Immediate, Recent, Remote Intelligence: Average Insight Judgment: Poor (due to psychosis) Result Diagram: 12/05/18 0744 12/05/18 0744 Lab Hematology Test 11/24/18 15:06 11/26/18 16:25 12/05/18 07:44 Free Thyroxine 0.90 ng/dl (0.78-2.19) Free Triiodothyronine 3.0 pg/mL (2.4-4.2) Tuberculin Skin Test 0 mm Red Blood Count 4.98 M/uL (4.17-5.56) Mean Corpuscular Volume 92.0 fL (80.0-96.0) Mean Corpuscular Hemoglobin 30.5 pg (26.0-33.0) Mean Corpuscular Hemoglobin Concent 33.1 g/dL (32.0-36.0) Red Cell Distribution Width 13.5 % (11.5-14.5) Mean Platelet Volume 6.9 fL (7.2-11.1) Neutrophils (%) (Auto) 66.8 % (39.4-72.5) Lymphocytes (%) (Auto) 20.8 % (17.6-49.6) Monocytes (%) (Auto) 8.4 % (4.1-12.4) Eosinophils (%) (Auto) 3.5 % (0.4-6.7) Basophils (%) (Auto) 0.5 % (0.3-1.4) Nucleated RBC Relative Count (auto) 0.0 /100WBC Neutrophils # (Auto) 4.9 K/uL (2.0-7.4) Lymphocytes # (Auto) 1.5 K/uL (1.3-3.6) Monocytes # (Auto) 0.6 K/uL (0.3-1.0) Eosinophils # (Auto) 0.3 K/uL (0.0-0.5) Basophils # (Auto) 0.0 K/uL (0.0-0.1) Nucleated RBC Absolute Count (auto) 0.00 K/uL Sodium Level 139 mmol/L (137-145) Potassium Level 4.6 mmol/L (3.5-5.0) Chloride Level 107 mmol/L (98-107) Carbon Dioxide Level 25 mmol/L (22-31) Blood Urea Nitrogen 11 mg/dl (7-18) Creatinine 0.70 mg/dl (0.52-1.04) Glomerular Filtration Rate Calc > 60.0 Random Glucose 76 mg/dl (75-110) Calcium Level 9.8 mg/dl (8.4-10.2) Total Bilirubin 0.5 mg/dl (0.2-1.3) Aspartate Amino Transf (AST/SGOT) 25 U/L (0-35) Alanine Aminotransferase (ALT/SGPT) 42 U/L (0-56) Alkaline Phosphatase 56 U/L (0-126) Total Protein 7.4 g/dl (6.3-8.2) Albumin 4.4 g/dl (3.5-5.0) Carbamazepine (Tegretol) Level 7.3 ug/ml Carbamazepine Time Since Last Dose 2100 Carbamazepine Last Dose Date 12/04/18 Chemistry Test 11/24/18 15:06 11/26/18 16:25 12/05/18 07:44 Free Thyroxine 0.90 ng/dl (0.78-2.19) Free Triiodothyronine 3.0 pg/mL (2.4-4.2) Tuberculin Skin Test 0 mm White Blood Count 7.3 k/uL (4.5-11.0) Red Blood Count 4.98 M/uL (4.17-5.56) Hemoglobin 15.2 g/dL (12.0-16.0) Hematocrit 45.8 % (34.0-47.0) Mean Corpuscular Volume 92.0 fL (80.0-96.0) Mean Corpuscular Hemoglobin 30.5 pg (26.0-33.0) Mean Corpuscular Hemoglobin Concent 33.1 g/dL (32.0-36.0) Red Cell Distribution Width 13.5 % (11.5-14.5) Platelet Count 308 K/uL (150-450) Mean Platelet Volume 6.9 fL (7.2-11.1) Neutrophils (%) (Auto) 66.8 % (39.4-72.5) Lymphocytes (%) (Auto) 20.8 % (17.6-49.6) Monocytes (%) (Auto) 8.4 % (4.1-12.4) Eosinophils (%) (Auto) 3.5 % (0.4-6.7) Basophils (%) (Auto) 0.5 % (0.3-1.4) Nucleated RBC Relative Count (auto) 0.0 /100WBC Neutrophils # (Auto) 4.9 K/uL (2.0-7.4) Lymphocytes # (Auto) 1.5 K/uL (1.3-3.6) Monocytes # (Auto) 0.6 K/uL (0.3-1.0) Eosinophils # (Auto) 0.3 K/uL (0.0-0.5) Basophils # (Auto) 0.0 K/uL (0.0-0.1) Nucleated RBC Absolute Count (auto) 0.00 K/uL Glomerular Filtration Rate Calc > 60.0 Calcium Level 9.8 mg/dl (8.4-10.2) Total Bilirubin 0.5 mg/dl (0.2-1.3) Aspartate Amino Transf (AST/SGOT) 25 U/L (0-35) Alanine Aminotransferase (ALT/SGPT) 42 U/L (0-56) Alkaline Phosphatase 56 U/L (0-126) Total Protein 7.4 g/dl (6.3-8.2) Albumin 4.4 g/dl (3.5-5.0) Carbamazepine (Tegretol) Level 7.3 ug/ml Carbamazepine Time Since Last Dose 2100 Carbamazepine Last Dose Date 12/04/18 Toxicology Test 12/05/18 07:44 Carbamazepine (Tegretol) Level 7.3 ug/ml Carbamazepine Time Since Last Dose 2100 Carbamazepine Last Dose Date 12/04/18 [facility] Assessment and Plan Oxau-un-Qoaz Encounter Date: Dec 05, 2018 Stjv-uz-Scas Encounter Time: 10:00 [facility] Plan: Necessary Precautions, Individual/Group Therapy, Admin/Titrate Meds, Educate Patient Tobacco Medications: Started Multpiple Antipsychotics Used: No Problems: (1) Schizoaffective disorder, bipolar type Status: Chronic GEO MARION MD Dec 05, 2018 14:45
[2018-12-05] MEDS: QUEtiapine FUM 100 MG TAB PO PRN (15:44)
[2018-12-05] MEDS ORDERED: QUEtiapine FUM 100 MG TAB PO SCH (21:00)
[2018-12-06] MEDS: HYDROCORTISONE 1% CR 28.35 GM TP PRN ×2 (07:37→20:16)
[2018-12-06] MEDS: SPIRONOLACTONE 25 MG TAB PO SCH ×2 (07:37→21:00)
[2018-12-06] MEDS: carBAMazepine 200 MG TAB PO SCH (07:37)
[2018-12-06] MEDS: DOXYCYCLINE HYCL 100 MG TAB PO SCH (07:37)
[2018-12-06] MEDS: LORazepam 2 MG/ML VIAL IM PRN ×2 (12:03→20:02)
[2018-12-06] MEDS: diphenhydrAMINE 50 MG/ML VIAL IM PRN ×2 (12:03→20:02)
--- NOTE | 2018-12-06 13:28 | BHS Progress Note ---
[facility] - Subjective Progress Notes Subjective Pt seen in adolescent area with team. Pt did comply with her medications yesterday. She continues to be regressed, with increase in paranoid delusions accompanied by agitation. She is fixated on the safety cameras, says she thinks I have entered her in "a study," called us [employer] agents, and has been swearing pr ofusely with loud voice. Today at around noon a code corina was called because she was slamming her door and throwing things at the camera; she broke a plastic cup. She was medicated with zyprexa 10, ativan 2, and benadryl 50mg IM, and she eventually calmed down. We will change her meds tomorrow to seroquel 400 q am and 800 q HS, Ativan 2 mg BID, and increase tegretol to 300 mg BID. She is on a ggression precautions and will remain in the adolescent area for now. Suicidal Ideation: None Homicidal Ideation: None [facility] - Objective Physical Exam Vital Signs Vital Signs 12/05/18 05:01 Temp 97.2 Pulse 88 Resp 15 B/P (MAP) 122/78 (93) Pulse Ox 94 O2 Delivery Room Air Muscle Strength and Tone: WNL Gait and Station: Steady [facility] Medications Reviewed: Side Effects, Benefits of Medication, Risks Allergies Reviewed: Yes Mental Status Exam General Appearance: Casual, Well Groomed, Psychomotor Agitation, Other ( throwing things, breaking things, scribbled all over her pimentel with crayons) Speech: Spontaneous, Rambling, Inappropriate, Other (yelling, loud pressured) Mood: Dysthmic/Depressed, Hyperthymic (angry) Affect: Agitated (labile, hyperthymic) Thought Process: Loose Associations Thought Content: No Suicidal Ideation, No Homicidal Ideation; Delusions (delusion that she is pseudocyesis, also multiple ideas of reference, paranoid delusions), Auditory Halllucinations (probable); No Visual Hallucinations, No Thought Broadcasting, No Ideas of Reference, No Obsessions, No Compulsions, No Other Sensorium: Clear Cognition: Alert & Oriented-Person, Alert & Oriented-Place, Alert & Oriented- Time, Gswct-Ydkjoeml-Lpfypepsc Memory: Immediate, Recent, Remote Intelligence: Average Insight Judgment: Poor (due to psychosis) Result Diagram: 12/05/1844 12/05/18743 [facility] Assessment and Plan Xfuv-dd-Thcy Encounter Date: Dec 06, 2018 Kdlq-hn-Sjge Encounter Time: 11:00 [facility] Plan: Necessary Precautions, Individual/Group Therapy, Admin/Titrate Meds, Educate Patient Tobacco Medications: Started Multpiple Antipsychotics Used: No Problems: (1) Schizoaffective disorder, bipolar type Status: Chronic GEO MARION MD Dec 06, 2018 13:28
[2018-12-06] MEDS ORDERED: QUEtiapine FUM 100 MG TAB PO SCH (15:00)
[2018-12-06] MEDS: LORazepam 1 MG TAB PO SCH ×2 (15:10→21:00)
--- NOTE | 2018-12-06 19:00 | NUR ---
Morning shift patient apologized to staff about how she had acted during the week ending in code yellows being called and staff having to move her into the adolescent area (Seclusion room - Unit-C, had a patient in already), staff on shift decided to allow patient to keep the markers and crayons that she was using (because she claimed it helped her to calm down when she colors/draws) when child psychiatrist checked on patient in the morning found patient had written on all room pimentel including bathroom pimentel, mirror and bathroom door. Patient told child psychiatrist it was already there on the pimentel, and the writing was the DrMayra's fault for not listening to her about her medication change.( attempted to talk with patient, patient refused stating she was "resting/sleeping" at 1100 in morning, because she would not/ could not sleep the night before. patient came out of her room upset raising her voice about how she had a right to sleep and not be bothered, and the staff was purposely trying to "trigger" her into getting upset.
[2018-12-06] MEDS: carBAMazepine 100 MG CHEW PO SCH (20:06)
--- NOTE | 2018-12-06 20:45 | NUR ---
On [id number] at about 1145 Hrs, Mandy Cowart became increasingly agitated and began throwing items at the window between the adolescent area and the nurse's station. She was slamming her door & screaming. Mandy Cowart seemed to be getting increasingly upset the more she acted out. A Code Yellow was called and staff consulted with Dr. Navarro. It was decided to give Mandy Cowart a "cocktail." Sudhakar Austin & Job went into Mandy Cowarts room and spoke with her. She rolled up both sleeve and told us to "give it to me." The medication was given. Mandy Cowart screamed about various delusions involving the FBI, a "study" we were doing, and so on. She also vented about us "ruining her life" and cried about loosing a relationship with her fiance. After awhile, Mandy Cowart began to calm. I brought her lunch. We monitored her hourly until she woke about 2.5 to 3 hours later.
--- NOTE | 2018-12-06 20:50 | NUR ---
On [id number] at about 1945Hrs, Mandy Cowart became very agitated and was pounding on the door between the adolescent area and the main [facility]. She was screaming threats towards staff members. She tore the intercom speaker off of the wall. A Code Yellow was called. I phoned Zuleika Penn, who authorized us to administer a "cocktail." The medications were drawn up. I knocked on Mandy Jones door and entered after she said "what?" I told Mandy Cowart we had medication for her. She agreed to take the medications. I asked Mandy Cowart to sit on her bed. She did. She was then given the "cocktail" without incident. Mandy Cowart began to vent loudly about the mistreatment she perceived to have experienced while at [facility] She continued with the delusional thinking she conveyed during the Code Yellow we had earlier this afternoon. After listening to Mandy Cowart for about 10 minutes, she asked us to leave. We did. A few minutes later, Mandy Cowart asked for a snack, which I provided without incident. We continued to monitor Mandy Cowart, who became more relaxed, but remained awake. She often came to the door asking for various things, such as permission to brush her teeth. We accommodated Mandy Cowart on every request, except for giving her pen & paper. We had already explained she would not be given pen or paper until the morning of [id number] & then only if she did not destroy anything else.
[2018-12-06] MEDS: QUEtiapine FUM 100 MG TAB PO SCH (21:00)
--- NOTE | 2018-12-06 23:29 | NUR ---
At approximately 2130 patient remains awake, continues to ask for pen and paper. again reminded that it would be tomorrow before she could have them back and only if she does not have any further destructive behavior. Patient then when back to room and slammed door. At approximately 2200, patient came out of room and inquired on pen and paper again. Reminded of previous statements regarding pen and paper. Patient then started making remarks [facility]." Was re-educated on [facility] Patient less agitated with response from staff and went to room to rest. At approximately 2245, patient asleep in bed, audibly snoring. No s/s of distress or discomfort noted. At approximately 2330,patient awake requesting snack, which was provided to patient. Patient went back to room without incident.
--- NOTE | 2018-12-07 02:04 | NUR ---
Patient awake at this time, requesting to have "a snack and a hair tie," snack provided for patient. Educated that no hair ties are on the unit by tech, patient then slammed the door, almost slamming techs fingers in the door, then slammed bedroom door in adolescent unit. Patient slurring words while attempting to talk. Will continue to monitor for any other increase in agitation.
[2018-12-07] MEDS: SPIRONOLACTONE 25 MG TAB PO SCH (08:15)
[2018-12-07] MEDS: DOXYCYCLINE HYCL 100 MG TAB PO SCH (08:16)
[2018-12-07] MEDS: QUEtiapine FUM 100 MG TAB PO SCH (08:34)
[2018-12-07] MEDS: LORazepam 1 MG TAB PO SCH (08:34)
[2018-12-07] MEDS: carBAMazepine 100 MG CHEW PO SCH (08:35)
[2018-12-07] MEDS ORDERED: QUEtiapine FUM 100 MG TAB PO SCH ×2 (09:00→21:00)
[2018-12-07] MEDS: LORazepam 2 MG/ML VIAL IM PRN ×2 (09:10→14:30)
[2018-12-07] MEDS: diphenhydrAMINE 50 MG/ML VIAL IM PRN ×2 (09:10→14:29)
--- NOTE | 2018-12-07 09:37 | BHS Progress Note ---
BHS - Subjective Progress Notes Subjective "If those people trigger me today I'll snap their fucking necks. They brought in a nutty butty bar and they are just messing with me. Get it right bitch. They are conspiring against me." Paranoid, aggressive and delusional this am when patient seen seen in adolescent area with team. Pt did not comply with her medications this am and escalated resulting code yellow. Patient hitting pimentel, yelling, threatening, swearing Medications changed 12/06 to Seroquel 400 q am and 800 q HS, Ativan 2 mg BID, and increase Tegretol to 300 mg BID. She remains on aggression precautions and will remain in the adolescent area for safety Suicidal Ideation: None Homicidal Ideation: Ongoing (Threatening to snap necks of those who trigger, threatens to cut their throats and tear their heads off ) BHS - Objective Physical Exam Vital Signs Allergies Coded Allergies NSAIDS (Non-Steroidal Anti-Inflamma (Verified Allergy, Unknown, 12/04/18) latex (Verified Allergy, Unknown, RASH, 11/22/18) yi (Verified Allergy, Unknown, RASH, 11/22/18) aspirin (Verified Adverse Reaction, Unknown, 11/22/18) bruises hydrocodone (Verified Adverse Reaction, Unknown, MENTAL STATUS CHANGES, 11/22/18) Medications (Trade) Dose Ordered Sig/Tere Route PRN Reason Start Time Stop Time Status Last Admin Dose Admin Acetaminophen (Tylenol(*)325 Mg Tab (Or Equiv)) 650 mg Q6H PRN PO FEVER/PAIN 11/26/18 09:50 12/26/18 09:49 12/04/18 14:19 Al Hydrox/Mg Hydrox/Simethicone (Maalox(*) 30 ml Udcup (Or Equiv)) 30 ml Q4H PRN PO DYSPEPSIA 11/22/18 17:20 12/22/18 17:19 11/27/18 14:46 Carbamazepine (TEGretol 100 MG CHEW (OR EQUIV)) 300 mg BID PO 12/06/18 21:00 01/05/19 20:59 12/07/18 08:35 Carbamazepine (TEGretol(*)200 MG TAB (OR EQUIV)) 200 mg BID PO 12/02/18 09:20 12/06/18 15:02 DC 12/06/18 07:37 Chlorpromazine HCl (Thorazine(*) 50 Mg/2 ml Amp (Or Equiv)) 50 mg Q6H PRN IM SEVERE AGITATION 12/07/18 08:50 01/06/19 08:49 12/07/18 09:10 Diphenhydramine HCl (Benadryl(*) 25 Mg Cap (Or Equiv)) 50 mg ONCE ONCE PO 11/22/18 21:00 11/22/18 21:01 DC 11/22/18 20:21 Diphenhydramine HCl (Benadryl(*) 50 Mg/ml Vial (Or Equiv)) 50 mg Q6H PRN IM ITCHING 12/03/18 23:30 01/02/19 23:29 12/07/18 09:10 Doxycycline Hyclate (Vibramycin(*) 100 Mg Tab (Or Equiv)) 100 mg QDAY PO 11/23/18 09:00 01/06/19 08:59 12/07/18 08:16 Hydrocortisone (Cortisone 1% Cr 28.35 Gm Tube (Or Equiv)) APPLY TO AFFECTED AREAS BID PRN TP irritation 11/26/18 14:00 12/26/18 13:59 12/06/18 20:16 Influenza Virus Vaccine Quadrival (Flu Vac ([id number] Formula)) 0.5 ml ONCE ONCE IM ONLY 11/27/18 11:10 11/27/18 11:12 DC 11/27/18 11:50 Lorazepam (Ativan(*) 1 Mg Tab (Or Equiv)) 2 mg BID PO 12/06/18 15:00 12/20/18 14:59 12/06/18 15:10 Lorazepam (Ativan(*) 2 Mg/ ml Vial (Or Equiv)) 2 mg Q6H PRN IM ANXIETY 12/03/18 23:30 12/17/18 23:29 12/07/18 09:10 Olanzapine (zyPREXA (OR EQUIV)) 5 mg Q6H PRN PO ANXIETY/AGITATION 11/25/18 10:05 12/02/18 09:22 DC 12/01/18 03:08 Olanzapine (zyPREXA(*) (OR EQUIV)) 10 mg Q6H PRN IM ONLY SEVERE AGITATION 12/03/18 23:30 12/07/18 10:11 DC 12/06/18 12:03 Prazosin HCl (Minipress 1 Mg Cap (Or Equiv)) 1 mg QHS PO 11/27/18 21:00 12/02/18 06:24 DC 12/01/18 20:15 Quetiapine Fumarate (SEROquel 100 MG TAB (OR EQUIV)) 400 mg DAILY PO 12/06/18 15:00 12/06/18 15:30 DC 12/06/18 15:10 Spironolactone (Aldactone 25 Mg Tab (Or Equiv)) 100 mg BID PO 11/27/18 09:00 12/27/18 08:59 12/06/18 07:37 Sterile Water (Sterile Water Injection(*) 10 ml Vial) 2.1 ml Q6H PRN IM ONLY AGITATION 12/03/18 23:30 12/07/18 10:11 DC 12/06/18 12:02 Muscle Strength and Tone: WNL Gait and Station: Steady BHS Medications Reviewed: Side Effects, Benefits of Medication, Risks Allergies Reviewed: Yes Mental Status Exam General Appearance: Casual, Well Groomed, Psychomotor Agitation, Other ( throwing things, breaking things, scribbled all over her pimentel with crayons) Speech: Spontaneous, Rambling, Inappropriate, Other (yelling, loud pressured) Mood: Dysthmic/Depressed, Hyperthymic (angry) Affect: Agitated (labile, hyperthymic) Thought Process: Loose Associations Thought Content: No Suicidal Ideation, No Homicidal Ideation; Delusions (delusion that she is pseudocyesis, also multiple ideas of reference, paranoid delusions), Auditory Halllucinations (probable); No Visual Hallucinations, No Thought Broadcasting, No Ideas of Reference, No Obsessions, No Compulsions, No Other Sensorium: Clear Cognition: Alert & Oriented-Person, Alert & Oriented-Place, Alert & Oriented- Time, [id number] Memory: Immediate, Recent, Remote Intelligence: Average Insight Judgment: Poor (due to psychosis) Result Diagram: 12/05/18 0744 12/05/18 0744 Imaging Current Medications Medications (Trade) Dose Ordered Sig/Tere Route PRN Reason Start Time Stop Time Status Last Admin Dose Admin Al Hydrox/Mg Hydrox/Simethicone (Maalox(*) 30 ml Udcup (Or Equiv)) 30 ml Q4H PRN PO DYSPEPSIA 11/22/18 17:20 12/22/18 17:19 11/27/18 14:46 Quetiapine Fumarate (SEROquel 100 MG TAB (OR EQUIV)) 800 mg QHS PO 11/22/18 21:00 11/27/18 10:02 DC 11/26/18 21:05 Quetiapine Fumarate (SEROquel 100 MG TAB (OR EQUIV)) 200 mg Q6H PRN PO AGITATION 11/22/18 17:25 12/06/18 15:01 DC 12/05/18 15:44 Diphenhydramine HCl (Benadryl(*) 25 Mg Cap (Or Equiv)) 50 mg ONCE ONCE PO 11/22/18 21:00 11/22/18 21:01 DC 11/22/18 20:21 Spironolactone (Aldactone 25 Mg Tab (Or Equiv)) 100 mg BID PO 11/22/18 21:00 11/27/18 07:55 DC 11/26/18 21:05 Doxycycline Hyclate (Vibramycin(*) 100 Mg Tab (Or Equiv)) 100 mg QDAY PO 11/23/18 09:00 01/06/19 08:59 12/07/18 08:16 Lorazepam (Ativan(*) 1 Mg Tab (Or Equiv)) 2 mg Q6H PRN PO SEVERE AGITATION 11/22/18 17:35 11/25/18 10:02 DC 11/22/18 18:45 Lorazepam (Ativan(*) 1 Mg Tab (Or Equiv)) 1 mg Q8H@0300,1100,1900 PO 11/23/18 10:45 11/24/18 09:01 DC 11/23/18 20:31 Lorazepam (Ativan(*) 1 Mg Tab (Or Equiv)) 1 mg TID@0900,1400,2100 PO 11/24/18 09:00 11/24/18 09:29 DC 11/24/18 09:19 Lorazepam (Ativan(*) 1 Mg Tab (Or Equiv)) 2 mg DAILY@1700 PO 11/24/18 17:00 11/25/18 10:02 DC 11/24/18 17:01 Olanzapine (zyPREXA (OR EQUIV)) 5 mg Q6H PRN PO ANXIETY/AGITATION 11/25/18 10:05 12/02/18 09:22 DC 12/01/18 03:08 Acetaminophen (Tylenol(*)325 Mg Tab (Or Equiv)) 650 mg Q6H PRN PO FEVER/PAIN 11/26/18 09:50 12/26/18 09:49 12/04/18 14:19 Hydrocortisone (Cortisone 1% Cr 28.35 Gm Tube (Or Equiv)) APPLY TO AFFECTED AREAS BID PRN TP irritation 11/26/18 14:00 12/26/18 13:59 12/06/18 20:16 Spironolactone (Aldactone 25 Mg Tab (Or Equiv)) 100 mg BID PO 11/27/18 09:00 12/27/18 08:59 12/06/18 07:37 Quetiapine Fumarate (SEROquel 100 MG TAB (OR EQUIV)) 600 mg QHS PO 11/27/18 21:00 11/29/18 11:37 DC 11/28/18 21:05 Prazosin HCl (Minipress 1 Mg Cap (Or Equiv)) 1 mg QHS PO 11/27/18 21:00 12/02/18 06:24 DC 12/01/18 20:15 Influenza Virus Vaccine Quadrival (Flu Vac ([id number] Formula)) 0.5 ml ONCE ONCE IM ONLY 11/27/18 11:10 11/27/18 11:12 DC 11/27/18 11:50 Quetiapine Fumarate (SEROquel 100 MG TAB (OR EQUIV)) 700 mg QHS PO 11/29/18 21:00 12/04/18 21:51 DC 12/04/18 21:15 Carbamazepine (TEGretol(*)200 MG TAB (OR EQUIV)) 200 mg BID PO 12/02/18 09:20 12/06/18 15:02 DC 12/06/18 07:37 Olanzapine (zyPREXA(*) (OR EQUIV)) 10 mg Q6H PRN IM ONLY SEVERE AGITATION 12/03/18 23:30 12/07/18 10:11 DC 12/06/18 12:03 Olanzapine (zyPREXA (OR EQUIV)) 10 mg Q6H PRN PO AGITATION 12/03/18 23:30 01/02/19 23:29 Lorazepam (Ativan(*) 2 Mg/ ml Vial (Or Equiv)) 2 mg Q6H PRN IM ANXIETY 12/03/18 23:30 12/17/18 23:29 12/07/18 09:10 Lorazepam (Ativan(*) 1 Mg Tab (Or Equiv)) 2 mg Q6H PRN PO AGITATION 12/03/18 23:30 12/17/18 23:29 Diphenhydramine HCl (Benadryl(*) 50 Mg/ml Vial (Or Equiv)) 50 mg Q6H PRN IM ITCHING 12/03/18 23:30 01/02/19 23:29 12/07/18 09:10 Diphenhydramine HCl (Benadryl(*) 25 Mg Cap (Or Equiv)) 50 mg Q6H PRN PO ITCHING 12/03/18 23:30 01/02/19 23:29 Sterile Water (Sterile Water Injection(*) 10 ml Vial) 2.1 ml Q6H PRN IM ONLY AGITATION 12/03/18 23:30 12/07/18 10:11 DC 12/06/18 12:02 Quetiapine Fumarate (SEROquel 100 MG TAB (OR EQUIV)) 200 mg ONCE ONCE PO 12/04/18 21:25 12/04/18 21:47 DC 12/04/18 21:39 Quetiapine Fumarate (SEROquel 100 MG TAB (OR EQUIV)) 900 mg QHS PO 12/05/18 21:00 12/06/18 15:30 DC 12/05/18 21:02 Quetiapine Fumarate (SEROquel 100 MG TAB (OR EQUIV)) 400 mg DAILY PO 12/07/18 09:00 12/07/18 09:00 DC Quetiapine Fumarate (SEROquel 100 MG TAB (OR EQUIV)) 800 mg QHS PO 12/07/18 21:00 12/07/18 21:00 DC Quetiapine Fumarate (SEROquel 100 MG TAB (OR EQUIV)) 400 mg DAILY PO 12/06/18 15:00 12/06/18 15:30 DC 12/06/18 15:10 Lorazepam (Ativan(*) 1 Mg Tab (Or Equiv)) 2 mg BID PO 12/06/18 15:00 12/20/18 14:59 12/06/18 15:10 Carbamazepine (TEGretol 100 MG CHEW (OR EQUIV)) 300 mg BID PO 12/06/18 21:00 01/05/19 20:59 12/07/18 08:35 Quetiapine Fumarate (SEROquel 100 MG TAB (OR EQUIV)) 400 mg DAILY PO 12/07/18 09:00 01/06/19 08:59 Quetiapine Fumarate (SEROquel 100 MG TAB (OR EQUIV)) 800 mg QHS PO 12/06/18 21:00 01/05/19 20:59 Chlorpromazine HCl (Thorazine(*) 50 Mg/2 ml Amp (Or Equiv)) 25 mg ONCE ONCE IM 12/06/18 19:45 12/06/18 19:48 DC 12/06/18 20:02 Chlorpromazine HCl (Thorazine(*) 50 Mg/2 ml Amp (Or Equiv)) 50 mg Q6H PRN IM SEVERE AGITATION 12/07/18 08:50 01/06/19 08:49 12/07/18 09:10 S Assessment and Plan [id number] Encounter Date: Dec 07, 2018 [id number] Encounter Time: 08:45 S Plan: Necessary Precautions, Individual/Group Therapy, Admin/Titrate Meds, Educate Patient Tobacco Medications: Started Multpiple Antipsychotics Used: No Problems: (1) Schizoaffective disorder, bipolar type Status: Chronic Condition Maintain safety precautions, aggression precautions Quetiapine was changed to 400 mg q am, 800 mg q pm (12/06), increase in Tegretol to 300mg po bid, Ativan 2mg po bid PRN injectable changed from Olanzapine to Thorazine DANIEL ROMERO NP Dec 07, 2018 09:37
--- NOTE | 2018-12-07 10:23 | NUR ---
At approximately 0830 patient refusing medications ordered by provider because "no one discussed changing my meds with me". It was witnessed yesterday by this nurse that the provider attempted to have a discussion with patient yesterday, and the patient repeatedly told the doctor to "fuck off" and "get out of my room". This morning she chose to take only 100mg of Tegretol and the 100mg of Doxycycline. She refused Ativan 2mg, Seroquel 400mg, and Tegretol 200mg. Throwing the refused medications across the table at this nurse. Provider, Verito Penn, was notified of refusal. Pt requested to talk to Auto Bumper Mechanic, Bhaskar, and became increasingly agitated discussing delusional topics such as "inventing the Daniela Butter" and that "people are hacking her phone and taking her pictures of the unicorns she has gotten pictures of", while Bhaskar listened quietly. Pt was raising her voice and beginning to yell, so Verito Penn and Anurag Vargas, therapist stepped into the adolescent area in which she is being segregated. The patient became even louder and began threatening to "break everyone's necks" and "slit your throats". Staff removed themselves from the area she was in. A Code Yellow had been initiated, and orders were given to draw up IM medications. In the process of drawing up injections the patient went into her room and violently slammed her bedroom door. Staff entered her room, and pt was given the choice of taking the IM injections voluntarily or going to long-term. She continued to yell and be belligerent towards staff, but gave permission for IM injections to be given. Yelling that she was just laying quietly in bed, and that we had no right to come in and give her injections, and that we are "fucking stupid assholes". Injections were given without incident.
[2018-12-07] MEDS ORDERED: ACET-1966 PO (16:34)
[2018-12-07] MEDS ORDERED: LORA-1458 PO ×2 (18:08→18:15)
[2018-12-07] MEDS ORDERED: QUET400T11 PO (18:09)
--- NOTE | 2018-12-07 18:12 | NUR ---
Patient has become unruly and threatening not only staff but other patients as well, making accusations that people including patients have stolen her ideas (her mom and her would have Daniela Neffs for lunch), she saw a patient had ordered one for lunch one day [ claiming "he" got it just to laugh at her and to "trigger" her into getting upset, by reminding her about her mother....? several code yellows (safety/security codes) had been called on her throughout the week. Sunday12-06-18 (2) had been called one in the morning and another in the evening (both ended with nurses giving injections of medication to help calm patient.) Sunday12-07-18, patient started off apologizing for her behavior from the day before, but also stating that she would not have been triggered if the DrMayra had not changed her medication/doses, and if the other patients had not stolen her ideas and laughed at her. Patient asked to speak with the Senior Oracle Dba about some things, this child psychometrist agreed to listen. Patient started off stating that she would not have gotten upset if "staff" would just listen to her, about med change, other patients stealing her ideas and laughing at her. Then the patient started to explain how she had uploaded pictures of unicorns onto her Facebook account, and now those pictures have gone viral and everyone was becoming rich off her ideas and claiming she was stalking them, but they were stalking her (while in the hospital) and making money off her, and if the FBI (she claimed the staff at [facility] is part of a covert "study" being done on her by the FBI. Amongst things patient had said and done while on the unit (used markers [mostly] and crayons to draw on every wall in her room and bathroom including both sides of bathroom door ( both were given because patient said coloring [on coloring pages and drawing] was part of her self-calming skills. When the markers and crayons were taken away due to the graffiti, patient became upset [possible "trigger" for first of Sunday's code yellows, along with claiming the DrMayra was not listening to her about her medications, and the DrMayra barged in her room when she was resting(at 1100). Patient also slammed bedroom door against wall, causing doorknob to break a hole in wall {patient safety, patient could utilize hole to harm self [steel mesh in wall potentially]} Nurse administered medication. Sunday evening patient came to "nurses desk window" wanting to talk with the DrMayra and complain about having her medication changed, when explained the DrMayra was no longer at the hospital, and she would be able to talk with the Dr. in the morning, patient started to become verbally aggressive, stating the only reason she became aggressive in the morning was because the barged in her room and woke the patient up, and would not listen to the patient, then patient started to rant about FBI sending people to stalk her even though they were accusing her of stalking people. Patient then became more verbally and physically agitated (raising her voice and pacing and throwing books and papers) when asked to stop yelling(which she was) patient yelled I'm not yelling I am talking loudly "I have a right to feel the way I do, and you can't stop me" staff told her she had a right to feel the way she does but not by yelling and upsetting other patients. Patient then became more aggressive by tearing the intercom off the wall. Juany Short was called nursing staff initiated more injections.Second Juany Short on Sunday was called on patient when patient became verbally threatening (yelling) about how she was going to kill specific other patients, and threatening staff. Decision was made to inject patient again (morning injection was given after patient had refused morning medications and became verbally aggressive by threatening staff and making statements about other patients.) Decision was made to move patient to other room in adolescent area do to patient safety (staff could not visually see patient in room [after injections staff have to be able to observe patient's under influence of medication] and hole in wall could allow potential for self harm with items in wall. Maintenance was called and other room door was removed for easier observation, and less potential to damage and cause a hole in wall. When patient was place in room became destructive, attempted to tear bathroom door off wall (did tear rubber gasket on door), tore curtains off window, tore sign off wall in front of room, damaged badge reader in adolescent area, tore and threw papers and magazines around area, used table and chair in an attempt to barricade staff out of adolescent area, continued to threaten staff and yelling about FBI and the Dr. changing her medication and keep injecting her also (because of her refusal to take her medications.)Police were called, Dandre Austin, Tisha Ortez, Chelsey Carlson, and Sue (PUBLIC HEALTH DIRECTOR) was called for confirmation on what would happen with patient, decision was made [facility]. Addendum: 12/07/18 at 1930 by HARRIS WHITNEY Amended: Links added.
[2018-12-07] MEDS ORDERED: DOXY-1 PO (18:13)
[2018-12-07] MEDS ORDERED: CARB-82 PO (18:13)
[2018-12-07] MEDS ORDERED: LORA2VIA2 IM (18:15)
[2018-12-07] MEDS ORDERED: DIPH-740 PO (18:16)
[2018-12-07] MEDS ORDERED: DIPH50DI IM (18:17)
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
[2018-12-07] MEDS ORDERED: MAG-66 PO (18:21)
[2018-12-07] MEDS ORDERED: [UNRECOGNIZED DRUG - CODE] TP (18:21)
[2018-12-08] MEDS: DOXYCYCLINE HYCL 100 MG TAB PO SCH (09:00)
[2018-12-08] MEDS: LORazepam 1 MG TAB PO SCH (09:00)
[2018-12-08] MEDS: SPIRONOLACTONE 25 MG TAB PO SCH (09:00)
[2018-12-08] MEDS: QUEtiapine FUM 100 MG TAB PO SCH ×2 (09:00→21:00)
[2018-12-08] MEDS: carBAMazepine 100 MG CHEW PO SCH (09:00)
[2018-12-09] MEDS: DOXYCYCLINE HYCL 100 MG TAB PO SCH (09:00)
--- NOTE | 2018-12-09 17:03 | NUR ---
[facility] Accompanied by 2 deputies, pt handcuffed. Escorted to Unit C without problems. Pt cooperative. Deputies removed the handcuffs without difficulty, and left. Pt changed into hospital scrubs, street clothes taken out. She states she does not remember the first few days after she was taken to the [facility]. Meal served pt ate without problems. Explained to her that she would remain in unit C for time being. She would talk to the Dr tomorrow and be assessed at that time.
[2018-12-09] MEDS: QUEtiapine FUM 100 MG TAB PO SCH ×2 (21:00→21:48)
[2018-12-09] MEDS ORDERED: carBAMazepine 100 MG CHEW ONE (21:37)
[2018-12-09] MEDS: LORazepam 1 MG TAB PO SCH (21:47)
[2018-12-09] MEDS: SPIRONOLACTONE 25 MG TAB PO SCH (21:47)
[2018-12-09] MEDS: carBAMazepine 100 MG CHEW PO SCH (21:48)
[2018-12-10 05:42] VITALS: BP 115/95
[2018-12-10] MEDS: HYDROCORTISONE 1% CR 28.35 GM TP PRN (08:19)
[2018-12-10] MEDS: carBAMazepine 100 MG CHEW PO SCH ×2 (08:47→20:43)
[2018-12-10] MEDS: DOXYCYCLINE HYCL 100 MG TAB PO SCH (08:47)
[2018-12-10] MEDS: QUEtiapine FUM 100 MG TAB PO SCH ×2 (08:48→21:14)
[2018-12-10] MEDS ORDERED: QUEtiapine FUM 100 MG TAB PO SCH (09:00)
[2018-12-10] MEDS ORDERED: LORazepam 1 MG TAB PO SCH (09:00)
[2018-12-10] MEDS: SPIRONOLACTONE 25 MG TAB PO SCH ×2 (09:32→20:44)
[2018-12-10] MEDS ORDERED: diphenhydrAMINE 50 MG/ML VIAL IM PRN (10:50)
[2018-12-10] MEDS ORDERED: LORazepam 1 MG TAB PO PRN (10:50)
[2018-12-10] MEDS ORDERED: diphenhydrAMINE 25 MG CAP PO PRN (10:50)
[2018-12-10] MEDS ORDERED: OLANZapine 5 MG TAB PO PRN (10:55)
[2018-12-10] MEDS: ACETAMINOPHEN 325 MG TAB PO PRN (10:56)
[2018-12-10 14:14] VITALS: BP 108/79
--- NOTE | 2018-12-10 14:15 | BHS Progress Note ---
BHS - Subjective Progress Notes Subjective Pt seen in Unit C. She was housed at the [facility] from the afternoon of 12/07 until yesterday, 12/09, at about 5 pm. She was transferred there due to [id number] behaviors, aggression, property destruction, and danger to self and others, because we did not have our seclusion room available to keep her safe. While at the shelter we kept in close contact with the deputies and the nurse there, and it was reported that while she was there she was cooperative and never aggressive. We received her back last evening once we had our seclusion room available. So far she has been calm, and is cooperating with staff and is taking her meds. Currently on Seroquel 400 mg am and 800 mg HS, ativan 2 mg BID, and tegretol 300 BID. Today she was a little oversedated, so we will decrease standing dose ativan to 1 mg BID. She asked me how long she would need to be here, and I explained that we need to see her being able to stay free of aggression, free of property destruction, free of loud yelling/cursing/threatening, taking meds, attending groups, and able to tolerate a roommate-- for at least two weeks-- before we could even consider referring her to a penitentiary. Today she is still rambling, hypomanic, tangential, and describes paranoid delusions-- but is definitely doing better overall than on Sunday. Will continue to have her in Unit C for now, will decrease standing ativan, will check labs tomorrow including TSH, tegretol, chem panel and cbc. Suicidal Ideation: None Homicidal Ideation: None BHS - Objective Physical Exam Vital Signs Vital Signs 12/10/18 05:42 Temp 97.7 Pulse 95 Resp 16 B/P (MAP) 115/95 (102) Pulse Ox 93 O2 Delivery Room Air Muscle Strength and Tone: WNL Gait and Station: Steady BHS Medications Reviewed: Side Effects, Benefits of Medication, Risks Allergies Reviewed: Yes Mental Status Exam General Appearance: Casual, Well Groomed, Other (calm but has a little edge, mild irritability, said "you're triggering me," but then was able to calm down after I changed the subject) Speech: Spontaneous, Rambling Mood: Dysthmic/Depressed Affect: Sad, Tearful, Other (labile) Thought Process: Other (circumstantial to tangential) Thought Content: No Suicidal Ideation, No Homicidal Ideation; Delusions (paranoid), Auditory Halllucinations (probable); No Visual Hallucinations, No Thought Broadcasting, No Ideas of Reference, No Obsessions, No Compulsions, No Other Sensorium: Clear Cognition: Alert & Oriented-Person, Alert & Oriented-Place, Alert & Oriented- Time, Kvgnp-Hpoeafsq-Hfglprtmt Memory: Immediate, Recent, Remote Intelligence: Average Insight Judgment: Poor (due to psychosis) [facility] Assessment and Plan [id number]-[id number] Encounter Date: Dec 10, 2018 [id number] Encounter Time: 08:30 [facility] Plan: Necessary Precautions, Individual/Group Therapy, Admin/Titrate Meds, Educate Patient Tobacco Medications: Started Multpiple Antipsychotics Used: No Problems: (1) Schizoaffective disorder, bipolar type Status: Chronic GEO MARION MD Dec 10, 2018 14:15
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
[2018-12-10] MEDS: LORazepam 1 MG TAB PO SCH (20:43)
[2018-12-10 21:54] VITALS: BP 112/83
[2018-12-11] MEDS: MAG HYD/AL HYD/SIMETH 30ML UDC PO PRN (02:37)
[2018-12-11 06:09] VITALS: BP 108/87
[2018-12-11] MEDS: HYDROCORTISONE 1% CR 28.35 GM TP PRN (08:04)
[2018-12-11] MEDS: SPIRONOLACTONE 25 MG TAB PO SCH ×2 (08:05→20:29)
[2018-12-11] MEDS: LORazepam 1 MG TAB PO SCH (08:05)
[2018-12-11] MEDS: QUEtiapine FUM 100 MG TAB PO SCH ×2 (08:05→20:28)
[2018-12-11] MEDS: carBAMazepine 100 MG CHEW PO SCH ×2 (08:06→20:28)
[2018-12-11] MEDS: DOXYCYCLINE HYCL 100 MG TAB PO SCH (08:06)
[2018-12-11] MEDS ORDERED: diphenhydrAMINE 50 MG/ML VIAL IM PRN (11:25)
[2018-12-11] MEDS ORDERED: LORazepam 1 MG TAB PO PRN (11:25)
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
[2018-12-11 13:27] VITALS: BP 110/88
[2018-12-11] MEDS: ACETAMINOPHEN 325 MG TAB PO PRN ×2 (18:46→23:50)
[2018-12-12 04:37] VITALS: BP 118/91
[2018-12-12] MEDS: ACETAMINOPHEN 325 MG TAB PO PRN (05:55)
[2018-12-12 06:37] LABS: PLATELET COUNT, AUTOMATED 351 K/uL (150-450)
[2018-12-12 07:12] LABS: LDL CHOLESTEROL 75 mg/dl
[2018-12-12] MEDS: SPIRONOLACTONE 25 MG TAB PO SCH ×2 (08:26→20:43)
[2018-12-12] MEDS: DOXYCYCLINE HYCL 100 MG TAB PO SCH (08:26)
[2018-12-12] MEDS: carBAMazepine 100 MG CHEW PO SCH ×2 (08:26→20:44)
[2018-12-12] MEDS: QUEtiapine FUM 100 MG TAB PO SCH ×2 (08:26→20:44)
[2018-12-12] MEDS: MAG HYD/AL HYD/SIMETH 30ML UDC PO PRN (09:43)
--- NOTE | 2018-12-12 11:57 | BHS Progress Note ---
BHS - Subjective Progress Notes Subjective Pt seen in Unit C. She is doing better bit-by-bit. No aggression. Says her delusions are "pretty much going away." Tolerating meds well without oversedation. Labs today look good, with normal CBC, LFT's,TSH, T4. T3 is slightly low but with normal TSH will just need to monitor periodically. Lipid panel normal. Carbemazepine level 8.1-- well within therapeutic range, so will continue same dose. We have allowed her to have markers and crayons back. Today we will open the door of Unit C and allow her to come and go. If she stays free of aggression, will consider transfer out of Unit C tomorrow. Need to move slowly given the extent of her psychosis and aggression last weekend which resulted in her having [facility]. Continue curent meds. Will decrease the prn ativan po down to 1 mg, but still have IM prn's available. Suicidal Ideation: None Homicidal Ideation: None [facility] - Objective Physical Exam Vital Signs Vital Signs 12/12/18 04:37 Temp 97.6 Pulse 101 Resp 16 B/P (MAP) 118/91 (100) Pulse Ox 94 O2 Delivery Room Air Muscle Strength and Tone: WNL Gait and Station: Steady [facility] Medications Reviewed: Side Effects, Benefits of Medication, Risks Allergies Reviewed: Yes Mental Status Exam General Appearance: Casual, Well Groomed, Cooperative, Polite, Good Interaction Speech: Clear, Spontaneous, Normal Rate, Normal Rhythm, Normal Volume, Normal Tone, Rambling (still rambling a bit....) Mood: Euthymic Affect: Calm, Neutral, Other (labile) Thought Process: Other (circumstantial ) Thought Content: No Suicidal Ideation, No Homicidal Ideation; Delusions (, but starting to resolve); No Auditory Halllucinations, No Visual Hallucinations, No Thought Broadcasting, No Ideas of Reference, No Obsessions, No Compulsions, No Other Sensorium: Clear Cognition: Alert & Oriented-Person, Alert & Oriented-Place, Alert & Oriented- Time, Fhqqy-Ahqplyuo-Emadrrapp Memory: Immediate, Recent, Remote Intelligence: Average Insight Judgment: Poor (due to psychosis) Result Diagram: 12/12/1862412/12/18624 Lab Hematology Test 11/26/18 16:25 12/12/18 06:25 Tuberculin Skin Test 0 mm Red Blood Count 4.79 M/uL (4.17-5.56) Mean Corpuscular Volume 92.1 fL (80.0-96.0) Mean Corpuscular Hemoglobin 30.4 pg (26.0-33.0) Mean Corpuscular Hemoglobin Concent 33.0 g/dL (32.0-36.0) Red Cell Distribution Width 13.4 % (11.5-14.5) Mean Platelet Volume 6.8 fL (7.2-11.1) Neutrophils (%) (Auto) 39.3 % (39.4-72.5) Lymphocytes (%) (Auto) 48.4 % (17.6-49.6) Monocytes (%) (Auto) 5.9 % (4.1-12.4) Eosinophils (%) (Auto) 5.9 % (0.4-6.7) Basophils (%) (Auto) 0.5 % (0.3-1.4) Nucleated RBC Relative Count (auto) 0.0 /100WBC Neutrophils # (Auto) 2.8 K/uL (2.0-7.4) Lymphocytes # (Auto) 3.4 K/uL (1.3-3.6) Monocytes # (Auto) 0.4 K/uL (0.3-1.0) Eosinophils # (Auto) 0.4 K/uL (0.0-0.5) Basophils # (Auto) 0.0 K/uL (0.0-0.1) Nucleated RBC Absolute Count (auto) 0.00 K/uL Sodium Level 137 mmol/L (137-145) Potassium Level 4.1 mmol/L (3.5-5.0) Chloride Level 105 mmol/L (98-107) Carbon Dioxide Level 22 mmol/L (22-31) Blood Urea Nitrogen 12 mg/dl (7-18) Creatinine 0.60 mg/dl (0.52-1.04) Glomerular Filtration Rate Calc > 60.0 Random Glucose 89 mg/dl (75-110) Calcium Level 9.1 mg/dl (8.4-10.2) Total Bilirubin < 0.1 mg/dl (0.2-1.3) Aspartate Amino Transf (AST/SGOT) 23 U/L (0-35) Alanine Aminotransferase (ALT/SGPT) 32 U/L (0-56) Alkaline Phosphatase 57 U/L (0-126) Total Protein 6.9 g/dl (6.3-8.2) Albumin 4.3 g/dl (3.5-5.0) Triglycerides Level 152 mg/dl (0-250) Cholesterol Level 146 mg/dl (75-200) LDL Cholesterol 75 mg/dl VLDL Cholesterol 30 mg/dl HDL Cholesterol 41 mg/dl Percent HDL Cholesterol 28.0 % Cholesterol Ratio (LDL/HDL) 1.82 Cholesterol/HDL Ratio 3.6 Vitamin D 25-Hydroxy 32 ng/ml (30-100) Thyroid Stimulating Hormone (TSH) 1.93 uIU/ml (0.46-4.68) Free Thyroxine 0.53 ng/dl (0.78-2.19) Carbamazepine (Tegretol) Level 8.1 ug/ml Carbamazepine Time Since Last Dose 2100 Carbamazepine Last Dose Date 12.11.18 Chemistry Test 11/26/18 16:25 12/12/18 06:25 Tuberculin Skin Test 0 mm White Blood Count 7.1 k/uL (4.5-11.0) Red Blood Count 4.79 M/uL (4.17-5.56) Hemoglobin 14.6 g/dL (12.0-16.0) Hematocrit 44.1 % (34.0-47.0) Mean Corpuscular Volume 92.1 fL (80.0-96.0) Mean Corpuscular Hemoglobin 30.4 pg (26.0-33.0) Mean Corpuscular Hemoglobin Concent 33.0 g/dL (32.0-36.0) Red Cell Distribution Width 13.4 % (11.5-14.5) Platelet Count 351 K/uL (150-450) Mean Platelet Volume 6.8 fL (7.2-11.1) Neutrophils (%) (Auto) 39.3 % (39.4-72.5) Lymphocytes (%) (Auto) 48.4 % (17.6-49.6) Monocytes (%) (Auto) 5.9 % (4.1-12.4) Eosinophils (%) (Auto) 5.9 % (0.4-6.7) Basophils (%) (Auto) 0.5 % (0.3-1.4) Nucleated RBC Relative Count (auto) 0.0 /100WBC Neutrophils # (Auto) 2.8 K/uL (2.0-7.4) Lymphocytes # (Auto) 3.4 K/uL (1.3-3.6) Monocytes # (Auto) 0.4 K/uL (0.3-1.0) Eosinophils # (Auto) 0.4 K/uL (0.0-0.5) Basophils # (Auto) 0.0 K/uL (0.0-0.1) Nucleated RBC Absolute Count (auto) 0.00 K/uL Glomerular Filtration Rate Calc > 60.0 Calcium Level 9.1 mg/dl (8.4-10.2) Total Bilirubin < 0.1 mg/dl (0.2-1.3) Aspartate Amino Transf (AST/SGOT) 23 U/L (0-35) Alanine Aminotransferase (ALT/SGPT) 32 U/L (0-56) Alkaline Phosphatase 57 U/L (0-126) Total Protein 6.9 g/dl (6.3-8.2) Albumin 4.3 g/dl (3.5-5.0) Triglycerides Level 152 mg/dl (0-250) Cholesterol Level 146 mg/dl (75-200) LDL Cholesterol 75 mg/dl VLDL Cholesterol 30 mg/dl HDL Cholesterol 41 mg/dl Percent HDL Cholesterol 28.0 % Cholesterol Ratio (LDL/HDL) 1.82 Cholesterol/HDL Ratio 3.6 Vitamin D 25-Hydroxy 32 ng/ml (30-100) Thyroid Stimulating Hormone (TSH) 1.93 uIU/ml (0.46-4.68) Free Thyroxine 0.53 ng/dl (0.78-2.19) Carbamazepine (Tegretol) Level 8.1 ug/ml Carbamazepine Time Since Last Dose 2100 Carbamazepine Last Dose Date 12.11.18 Toxicology Test 12/12/18 06:25 Carbamazepine (Tegretol) Level 8.1 ug/ml Carbamazepine Time Since Last Dose 2100 Carbamazepine Last Dose Date 12.11.18 [facility] Assessment and Plan Ndyf-qo-Iuuq Encounter Date: Dec 12, 2018 Ytkb-dj-Gzqd Encounter Time: 11:00 [facility] Plan: Necessary Precautions, Individual/Group Therapy, Admin/Titrate Meds, Educate Patient Tobacco Medications: Started Multpiple Antipsychotics Used: No Problems: (1) Schizoaffective disorder, bipolar type Status: Chronic GEO MARION MD Dec 12, 2018 11:57
[2018-12-12 13:02] VITALS: BP 111/84
[2018-12-12] MEDS: LORazepam 1 MG TAB PO PRN (15:50)
[2018-12-12 22:13] VITALS: BP 111/76
[2018-12-13 06:03] VITALS: BP 104/74
[2018-12-13] MEDS: QUEtiapine FUM 100 MG TAB PO SCH ×2 (07:49→19:54)
[2018-12-13] MEDS: SPIRONOLACTONE 25 MG TAB PO SCH ×2 (07:50→19:53)
[2018-12-13] MEDS: carBAMazepine 100 MG CHEW PO SCH ×2 (07:50→19:54)
[2018-12-13] MEDS: DOXYCYCLINE HYCL 100 MG TAB PO SCH (07:50)
[2018-12-13] MEDS: HYDROCORTISONE 1% CR 28.35 GM TP PRN (07:52)
[2018-12-13] MEDS: MAG HYD/AL HYD/SIMETH 30ML UDC PO PRN (11:28)
[2018-12-13 12:25] VITALS: BP 108/64
--- NOTE | 2018-12-13 13:13 | BHS Progress Note ---
S - Subjective Progress Notes Subjective Pt seen in Unit C. apparently she threw a cup last night. Also last night when I spoke with her she was still labile and delusional and irritable, accusing me of "a Study" that I am doing on her. This morning she is pleasant and cooperative, though still pressured in speech and tangential in thought process. Tolerating meds well, slept well, not oversedated during the day. I do not recommend that she come out of Unit C yet, still too labile and too delusional. We need to be conservative given extreme aggression only one week ago. Pt needs more time on neuroleptics and mood stabilizer. Awaiting [facility] placement. Suicidal Ideation: None Homicidal Ideation: None [facility] - Objective Physical Exam Vital Signs Vital Signs 12/13/18 06:03 Temp 97.0 Pulse 112 Resp 18 B/P (MAP) 104/74 (84) Pulse Ox 94 O2 Delivery Room Air Muscle Strength and Tone: WNL Gait and Station: Steady S Medications Reviewed: Side Effects, Benefits of Medication, Risks Allergies Reviewed: Yes Mental Status Exam General Appearance: Casual, Well Groomed, Cooperative, Polite, Good Interaction Speech: Clear, Spontaneous, Normal Rate, Normal Rhythm, Normal Volume, Normal Tone, Rambling (pressured) Mood: Euthymic Affect: Calm, Neutral, Other (labile) Thought Process: Other (circumstantial ) Thought Content: No Suicidal Ideation, No Homicidal Ideation; Delusions (, but starting to resolve); No Auditory Halllucinations, No Visual Hallucinations, No Thought Broadcasting, No Ideas of Reference, No Obsessions, No Compulsions, No Other Sensorium: Clear Cognition: Alert & Oriented-Person, Alert & Oriented-Place, Alert & Oriented- Time, Xblqe-Lzrjtcpy-Xlnuihmux Memory: Immediate, Recent, Remote Intelligence: Average Insight Judgment: Poor (due to psychosis) Result Diagram: 12/12/1862412/12/18624 [facility] Assessment and Plan Nmox-fl-Xsqq Encounter Date: Dec 13, 2018 Osxg-pn-Puqe Encounter Time: 10:00 [facility] Plan: Necessary Precautions, Individual/Group Therapy, Admin/Titrate Meds, Educate Patient Tobacco Medications: Started Multpiple Antipsychotics Used: No Problems: (1) Schizoaffective disorder, bipolar type Status: Chronic GEO MARION MD Dec 13, 2018 13:13
[2018-12-13] MEDS: LORazepam 1 MG TAB PO PRN (18:41)
[2018-12-13] MEDS: ACETAMINOPHEN 325 MG TAB PO PRN (18:55)
[2018-12-13] MEDS: LORazepam 2 MG/ML VIAL IM PRN (19:51)
--- NOTE | 2018-12-13 19:55 | NUR ---
ATIVAN 2 MG IM GIVEN AT 1 HRS TODAY WAS ADMINISTERED PER Kai DUNN
[2018-12-13 21:45] VITALS: BP 115/70
[2018-12-14] MEDS: HYDROCORTISONE 1% CR 28.35 GM TP PRN (07:52)
[2018-12-14] MEDS: QUEtiapine FUM 100 MG TAB PO SCH ×2 (08:25→20:33)
[2018-12-14] MEDS: carBAMazepine 100 MG CHEW PO SCH ×2 (08:25→20:32)
[2018-12-14] MEDS: SPIRONOLACTONE 25 MG TAB PO SCH ×2 (08:25→20:32)
[2018-12-14] MEDS: DOXYCYCLINE HYCL 100 MG TAB PO SCH (08:26)
--- NOTE | 2018-12-14 12:20 | BHS Progress Note ---
[facility] - Subjective Progress Notes Subjective "I'm better." "I slept pretty good last night." "I have been writing letters and working in workbooks." Patient is seen in her room in Unit C. She has been cooperative this am. She denies SI/HI or hallucinations. Suicidal Ideation: None Homicidal Ideation: None S - Objective Physical Exam Vital Signs Vital Signs 12/13/18 12/13/18 12:25 21:45 Temp 98.0 Pulse 100 Resp 16 B/P (MAP) 115/70 (85) Pulse Ox 93 O2 Delivery Room Air Muscle Strength and Tone: WNL Gait and Station: Steady [facility] Medications Reviewed: Side Effects, Benefits of Medication, Risks Allergies Reviewed: Yes Mental Status Exam General Appearance: Casual, Well Groomed, Cooperative, Polite, Good Interaction Speech: Clear, Spontaneous, Normal Rate, Normal Rhythm, Normal Volume, Normal Tone, Rambling (pressured) Mood: Euthymic Affect: Calm, Neutral, Other (labile) Thought Process: Other (circumstantial ) Thought Content: No Suicidal Ideation, No Homicidal Ideation; Delusions (, but starting to resolve); No Auditory Halllucinations, No Visual Hallucinations, No Thought Broadcasting, No Ideas of Reference, No Obsessions, No Compulsions, No Other Sensorium: Clear Cognition: Alert & Oriented-Person, Alert & Oriented-Place, Alert & Oriented- Time, Xpezs-Whnxvxvk-Zgdjribrp Memory: Immediate, Recent, Remote Intelligence: Average Insight Judgment: Poor (due to psychosis) Result Diagram: 12/12/1825 12/12/1825 [facility] Assessment and Plan Yivd-hd-Ster Encounter Date: Dec 14, 2018 Tkga-bk-Mgkj Encounter Time: 11:00 [facility] Plan: Necessary Precautions, Individual/Group Therapy, Admin/Titrate Meds, Educate Patient Tobacco Medications: Started Multpiple Antipsychotics Used: No Problems: (1) Schizoaffective disorder, bipolar type Status: Chronic JERI CARD NP Dec 14, 2018 12:20
[2018-12-14 13:55] VITALS: BP 108/86
[2018-12-14] MEDS: MAG HYD/AL HYD/SIMETH 30ML UDC PO PRN (20:32)
[2018-12-15 06:28] VITALS: BP 118/83
[2018-12-15] MEDS: carBAMazepine 100 MG CHEW PO SCH ×2 (08:02→20:45)
[2018-12-15] MEDS: DOXYCYCLINE HYCL 100 MG TAB PO SCH (08:02)
[2018-12-15] MEDS: HYDROCORTISONE 1% CR 28.35 GM TP PRN (08:02)
[2018-12-15] MEDS: SPIRONOLACTONE 25 MG TAB PO SCH ×2 (08:03→20:44)
[2018-12-15] MEDS: QUEtiapine FUM 100 MG TAB PO SCH ×2 (08:03→20:44)
[2018-12-15 10:40] VITALS: BP 112/80
--- NOTE | 2018-12-15 12:09 | BHS Progress Note ---
[facility] - Subjective Progress Notes Subjective "I'm fine. I'm sleeping better every day." She denies SI. Denies HI. Denies hallucinations. "I'm not having delusions anymore. I think the Tegretol is helping." Suicidal Ideation: None Homicidal Ideation: None [facility] - Objective Physical Exam Vital Signs Vital Signs Date Time Temp Pulse Resp B/P (MAP) Pulse Ox O2 Delivery O2 Flow Rate FiO2 12/15/18 06:28 97.8 97 16 118/83 (95) 95 Room Air Muscle Strength and Tone: WNL Gait and Station: Steady [facility] Medications Reviewed: Side Effects, Benefits of Medication, Risks Allergies Reviewed: Yes Mental Status Exam General Appearance: Casual, Well Groomed, Cooperative, Polite, Good Interaction Speech: Clear, Spontaneous, Normal Rate, Normal Rhythm, Normal Volume, Normal Tone, Rambling (pressured) Mood: Euthymic Affect: Calm, Neutral, Other (labile) Thought Process: Other (circumstantial ) Thought Content: No Suicidal Ideation, No Homicidal Ideation; Delusions (, but starting to resolve); No Auditory Halllucinations, No Visual Hallucinations, No Thought Broadcasting, No Ideas of Reference, No Obsessions, No Compulsions, No Other Sensorium: Clear Cognition: Alert & Oriented-Person, Alert & Oriented-Place, Alert & Oriented- Time, Pwcyr-Goaqxmff-Dzhphtmkw Memory: Immediate, Recent, Remote Intelligence: Average Insight Judgment: Poor (due to psychosis) Result Diagram: 12/12/1862412/12/18624 [facility] Assessment and Plan Hycc-oa-Syrm Encounter Date: Dec 15, 2018 Ifyn-hh-Mhus Encounter Time: 11:30 [facility] Plan: Necessary Precautions, Individual/Group Therapy, Admin/Titrate Meds, Educate Patient Tobacco Medications: Started Multpiple Antipsychotics Used: No Problems: (1) Schizoaffective disorder, bipolar type Status: Chronic JERI ACRD NP Dec 15, 2018 12:09
[2018-12-15] MEDS: ACETAMINOPHEN 325 MG TAB PO PRN (17:44)
[2018-12-15] MEDS: LORazepam 1 MG TAB PO PRN (17:44)
--- NOTE | 2018-12-15 17:45 | NUR ---
pt offered to watch a movie. stated yes. Pt asked to get her Ativan and Tylenol. Tolerated well.
--- NOTE | 2018-12-15 21:39 | NUR ---
Pt was able to watch 2 movies tonight without getting up and distracting herself with something else.
[2018-12-16 05:23] VITALS: BP 100/84
[2018-12-16] MEDS: carBAMazepine 100 MG CHEW PO SCH ×2 (07:52→21:36)
[2018-12-16] MEDS: DOXYCYCLINE HYCL 100 MG TAB PO SCH (07:52)
[2018-12-16] MEDS: HYDROCORTISONE 1% CR 28.35 GM TP PRN (07:52)
[2018-12-16] MEDS: SPIRONOLACTONE 25 MG TAB PO SCH ×2 (07:53→21:36)
[2018-12-16] MEDS: QUEtiapine FUM 100 MG TAB PO SCH ×2 (07:54→21:37)
--- NOTE | 2018-12-16 11:33 | BHS Progress Note ---
[facility] - Subjective Progress Notes Subjective Pt seen in treatment team meeting. Pt had a good weekend, free of any aggression. She denies delusions today. Her thought process is still quite disorganized. She c/o feeling 'emotional" which includes feeling sad, hopeless, and tearful. We discussed adding wellbutrin at low dose 75 mg for bipolar depression, and she would like to give it a try. We will move her out of Unit C today, into adolescent area where she will still be somewhat segregated and be free of getting overstimulated. Watch for any evidence of fran after we add wellbutrin. Still awaiting bed at [facility]. Suicidal Ideation: None Homicidal Ideation: None [facility] - Objective Physical Exam Vital Signs Vital Signs 12/16/18 05:23 Temp 97.7 Pulse 92 Resp 16 B/P (MAP) 100/84 (89) Pulse Ox 94 O2 Delivery Room Air Muscle Strength and Tone: WNL Gait and Station: Steady [facility] Medications Reviewed: Side Effects, Benefits of Medication, Risks Allergies Reviewed: Yes Mental Status Exam General Appearance: Casual, Well Groomed, Cooperative, Polite, Good Interaction Speech: Clear, Spontaneous, Normal Rate, Normal Rhythm, Normal Volume, Normal Tone, Rambling (pressured) Mood: Euthymic Affect: Calm, Sad, Neutral Thought Process: Other (circumstantial ) Thought Content: No Suicidal Ideation, No Homicidal Ideation; Delusions (denied today); No Auditory Halllucinations, No Visual Hallucinations, No Thought Broadcasting, No Ideas of Reference, No Obsessions, No Compulsions, No Other Sensorium: Clear Cognition: Alert & Oriented-Person, Alert & Oriented-Place, Alert & Oriented- Time, Ofuuc-Icbehhmq-Rynucrwbz Memory: Immediate, Recent, Remote Intelligence: Average Insight Judgment: Poor (due to psychosis) Result Diagram: 12/12/1862412/12/18624 [facility] Assessment and Plan Vycp-po-Fpix Encounter Date: Dec 16, 2018 Jhdk-tm-Sxao Encounter Time: 11:30 [facility] Plan: Necessary Precautions, Individual/Group Therapy, Admin/Titrate Meds, Educate Patient Tobacco Medications: Started Multpiple Antipsychotics Used: No Problems: (1) Schizoaffective disorder, bipolar type Status: Chronic GEO MARION MD Dec 16, 2018 11:33
[2018-12-16] MEDS: buPROPion IR 75 MG TAB PO SCH (11:41)
[2018-12-16] MEDS: ACETAMINOPHEN 325 MG TAB PO PRN (16:18)
[2018-12-16] MEDS: MAG HYD/AL HYD/SIMETH 30ML UDC PO PRN (20:21)
[2018-12-16] MEDS: LORazepam 1 MG TAB PO PRN (23:29)
[2018-12-17 02:56] VITALS: BP 104/82
[2018-12-17] MEDS: HYDROCORTISONE 1% CR 28.35 GM TP PRN (07:38)
[2018-12-17] MEDS: SPIRONOLACTONE 25 MG TAB PO SCH ×2 (08:29→21:40)
[2018-12-17] MEDS: QUEtiapine FUM 100 MG TAB PO SCH ×2 (08:29→21:38)
[2018-12-17] MEDS: DOXYCYCLINE HYCL 100 MG TAB PO SCH (08:30)
[2018-12-17] MEDS: buPROPion IR 75 MG TAB PO SCH (08:30)
[2018-12-17] MEDS: carBAMazepine 100 MG CHEW PO SCH ×2 (08:30→21:35)
--- NOTE | 2018-12-17 10:59 | BHS Progress Note ---
[facility] - Subjective Progress Notes Subjective Pt seen informally in the [facility] this morning, smiling, pleasant, said she slept well and was in a good mood today. Later when I went to invite her to come to the conference room to talk with the team, she was in bed, irritable, said she was sleepy, "leave me alone." When I still tried to encourage her, she said "Leave me the fuck alone." Other than that yesterday she apparently had a good day, participated in groups, there has been no aggressive behavior. Will continue current meds, keep watching for any mood instability induced by addition of wellbutrin yesterday. Will check routine carbamazapine labs tomorrow. Suicidal Ideation: None Homicidal Ideation: None [facility] - Objective Physical Exam Vital Signs Vital Signs 12/16/18 12/17/18 05:23 02:56 Temp 97.1 Pulse 114 Resp 16 B/P (MAP) 104/82 (89) Pulse Ox 93 O2 Delivery Room Air Muscle Strength and Tone: WNL Gait and Station: Steady [facility] Medications Reviewed: Side Effects, Benefits of Medication, Risks Allergies Reviewed: Yes Mental Status Exam General Appearance: Casual, Well Groomed, Cooperative, Polite, Good Interaction, Other (see note above-- later was in bed, cussed at me) Speech: Clear, Spontaneous, Normal Rate, Normal Rhythm, Normal Volume, Normal Tone, Rambling (pressured) Mood: Euthymic Affect: Calm, Sad, Neutral Thought Process: Other (circumstantial ) Thought Content: No Suicidal Ideation, No Homicidal Ideation; Delusions (denied today); No Auditory Halllucinations, No Visual Hallucinations, No Thought Broadcasting, No Ideas of Reference, No Obsessions, No Compulsions, No Other Sensorium: Clear Cognition: Alert & Oriented-Person, Alert & Oriented-Place, Alert & Oriented- Time, Eloqe-Wthfriht-Cfatgkeow Memory: Immediate, Recent, Remote Intelligence: Average Insight Judgment: Poor (due to psychosis) [facility] Assessment and Plan Wcxw-du-Bwyl Encounter Date: Dec 17, 2018 Wnbr-zq-Effp Encounter Time: 08:30 [facility] Plan: Necessary Precautions, Individual/Group Therapy, Admin/Titrate Meds, Educate Patient Tobacco Medications: Started Multpiple Antipsychotics Used: No Problems: (1) Schizoaffective disorder, bipolar type Status: Chronic GEO MARION MD Dec 17, 2018 10:59
--- NOTE | 2018-12-18 00:18 | NUR ---
1450 nurses in report room giving report. Howard a crash. Noted the patient had thrown the phone over the nurses station desk, Screaming obscenities at the staff, She stated I called my dad and he hung up on me. pt was escorted back to the adolescent area, code yellow was announced, Pt continued to scream the delusions she continues to have (about a velez making millions over the songs he wrote about her.)Pt continued to escalate, waving arms and screaming louder. Pt unable to calm herself down. Pt was asked if she would like medication to calm her, She stated yes, asked if she wanted oral or a shot she said shot. IM shots of Thorzine, ativan and benadryl were given in arms. After short time pt started to calm down. she was escorted to unit C at this time. Pt layed down in bed and covered herself. See code yellow form.
[2018-12-18] MEDS: LORazepam 1 MG TAB PO PRN (03:36)
[2018-12-18 04:29] VITALS: BP 102/75
[2018-12-18 07:30] LABS: PLATELET COUNT, AUTOMATED 347 K/uL (150-450)
[2018-12-18] MEDS: HYDROCORTISONE 1% CR 28.35 GM TP PRN (07:36)
[2018-12-18] MEDS: SPIRONOLACTONE 25 MG TAB PO SCH ×2 (08:05→19:05)
[2018-12-18] MEDS: QUEtiapine FUM 100 MG TAB PO SCH ×2 (08:06→19:05)
[2018-12-18] MEDS: buPROPion IR 75 MG TAB PO SCH (08:06)
[2018-12-18] MEDS: DOXYCYCLINE HYCL 100 MG TAB PO SCH (08:06)
[2018-12-18] MEDS: carBAMazepine 100 MG CHEW PO SCH ×2 (08:06→19:05)
--- NOTE | 2018-12-18 13:26 | BHS Progress Note ---
[facility] - Subjective Progress Notes Subjective Pt seen individually in the tv room. Per staff, she has been a bit hypomanic today, more pressured in speech. With me she was more irritable, said "You never listen to me about my meds." I invited her to tell me anything she needs me to hear, but she declined. Overall seemed irritable, guarded. I am concern ed that wellbutrin in inducing mood-instability, so I will discontinue it. Labs were checked and all look good-- carbamazapine level is down a bit-- likely auto-induction. For now will leave tegretol and seroquel doses the same. Suicidal Ideation: None Homicidal Ideation: None [facility] - Objective Physical Exam Vital Signs Vital Signs 12/18/18 04:29 Temp 97.1 Pulse 101 Resp 15 B/P (MAP) 102/75 (84) Pulse Ox 94 O2 Delivery Room Air Muscle Strength and Tone: WNL Gait and Station: Steady [facility] Medications Reviewed: Side Effects, Benefits of Medication, Risks Allergies Reviewed: Yes Mental Status Exam General Appearance: Casual, Well Groomed, Cooperative, Polite, Good Interaction, Other (see note above-- later was in bed, cussed at me) Speech: Clear, Spontaneous, Normal Rate, Normal Rhythm, Normal Volume, Normal Tone, Rambling (pressured) Mood: Dysthmic/Depressed, Euthymic, Other (irritable) Affect: Sad, Agitated, Other (labile, irritable, hyperthymic.) Thought Process: Other (circumstantial ) Thought Content: No Suicidal Ideation, No Homicidal Ideation; Delusions (denied today); No Auditory Halllucinations, No Visual Hallucinations, No Thought Broadcasting, No Ideas of Reference, No Obsessions, No Compulsions, No Other Sensorium: Clear Cognition: Alert & Oriented-Person, Alert & Oriented-Place, Alert & Oriented- Time, Prntt-Ndehyelc-Xantrwgkj Memory: Immediate, Recent, Remote Intelligence: Average Insight Judgment: Poor (due to psychosis) Result Diagram: 12/18/1870312/18/18703 [facility] Assessment and Plan Opgm-mc-Rygr Encounter Date: Dec 18, 2018 Tzxc-xk-Vmws Encounter Time: 10:00 [facility] Plan: Necessary Precautions, Individual/Group Therapy, Admin/Titrate Meds, Educate Patient Tobacco Medications: Started Multpiple Antipsychotics Used: No Problems: (1) Schizoaffective disorder, bipolar type Status: Chronic GEO MARION MD Dec 18, 2018 13:26
[2018-12-18] MEDS: LORazepam 2 MG/ML VIAL IM PRN (15:15)
--- NOTE | 2018-12-18 17:00 | NUR ---
Pt continues to be awake did not go to sleep after injections, A meal was given to her. After the meal she started to become agitated with her delusions. After sitting with her she could not calm herself again and asked for medications to help her sleep. Dr Navarro was called orders received for more medication. Pt took the medication without problems. Layed down and slept. respirations regular and unlabored.
[2018-12-18] MEDS ORDERED: chlorproMAZINE 25 MG TAB PO ONE (18:45)
[2018-12-18] MEDS ORDERED: LORazepam 1 MG TAB PO ONE (18:45)
--- NOTE | 2018-12-18 21:41 | NUR ---
Pt. was experiencing some delusions of herself being again last evening. Was frustrated when she approached me at the nurses station and when explaining the situation and me trying to understand her. She got even more frustrated walked back to her room and slammed the door. I let the situation go and pt. did not come back out of her room for the rest of the evening.
[2018-12-19 05:09] VITALS: BP 97/71
[2018-12-19] MEDS: HYDROCORTISONE 1% CR 28.35 GM TP PRN (07:54)
[2018-12-19] MEDS: SPIRONOLACTONE 25 MG TAB PO SCH ×2 (08:31→19:41)
[2018-12-19] MEDS: carBAMazepine 100 MG CHEW PO SCH ×2 (08:32→19:42)
[2018-12-19] MEDS: DOXYCYCLINE HYCL 100 MG TAB PO SCH (08:32)
[2018-12-19] MEDS: QUEtiapine FUM 100 MG TAB PO SCH ×2 (08:32→19:40)
--- NOTE | 2018-12-19 15:31 | BHS Progress Note ---
S - Subjective Progress Notes Subjective Pt seen in Unit C twice today. Pt had a code yellow called at 3 pm yesterday... she was on the phone with a family member who apparently hung up on her. She became very loud, yelling, cursing, slamming doors, and started throwing things. She was medicated with IM thorazine, ativan, benadryl, which she cooperated with, then was escorted cooperatively to Unit C and calmed down pretty quickly. No injuries sustained. Later in the evening we medicated her again with po thorazine and ativan, and she slept through the night. Today has been cooperative, staying mostly in bed, later up and asking for her crayons and material to do artwork with (which we gave her). She is asking me to DC tegretol, as she feels it is making her worse, not better. She is also requesting po thorazine at to help with sleep. Will taper tegretol over next 4 days, since I agree with her, I have not seen her do much better with it and if anything she seems to be more depressed. Will add po thorazine-- although would like to avoid two neuroleptics, this is only short term, since once she goes to [facility] I am going to recommend a trial of clozaril. Suicidal Ideation: None Homicidal Ideation: None BHS - Objective Physical Exam Vital Signs Vital Signs 12/19/18 05:09 Temp 97.7 Pulse 91 Resp 14 B/P (MAP) 97/71 (80) Pulse Ox 92 O2 Delivery Room Air Muscle Strength and Tone: WNL Gait and Station: Steady [facility] Medications Reviewed: Side Effects, Benefits of Medication, Risks Allergies Reviewed: Yes Mental Status Exam General Appearance: Casual, Well Groomed, Cooperative, Other (still irritable but no longer aggressive) Speech: Clear, Spontaneous, Normal Rate, Normal Rhythm, Normal Volume, Normal Tone, Rambling (pressured) Mood: Dysthmic/Depressed, Euthymic, Other (irritable) Affect: Sad, Agitated, Other (labile, irritable, hyperthymic.) Thought Process: Other (circumstantial ) Thought Content: No Suicidal Ideation, No Homicidal Ideation; Delusions (again talking about how we are studying her.); No Auditory Halllucinations, No Visual Hallucinations, No Thought Broadcasting, No Ideas of Reference, No Obsessions, No Compulsions, No Other Sensorium: Clear Cognition: Alert & Oriented-Person, Alert & Oriented-Place, Alert & Oriented- Time, Fssce-Lkklmezn-Ihfdrmjmj Memory: Immediate, Recent, Remote Intelligence: Average Insight Judgment: Poor (due to psychosis) Result Diagram: 12/18/18 0704 12/18/18 0704 [facility] Assessment and Plan Jqfd-od-Gujl Encounter Date: Dec 19, 2018 Nvrq-fm-Viyg Encounter Time: 09:00 [facility] Plan: Necessary Precautions, Individual/Group Therapy, Admin/Titrate Meds, Educate Patient Tobacco Medications: Started Multpiple Antipsychotics Used: No Problems: (1) Schizoaffective disorder, bipolar type Status: Chronic GEO MARION MD Dec 19, 2018 15:31
[2018-12-19] MEDS: chlorproMAZINE 25 MG TAB PO SCH (19:42)
[2018-12-19 20:45] VITALS: BP 133/80
--- NOTE | 2018-12-19 23:00 | NUR ---
Note from [id number], Patient up at door at start of shift, was accommodated with request and returned back to bed. Patient has remained in bed so far this shift. Took PM medications without incident, did inquire if Tegretol dose had been decreased. Educated patient on decrease of Tegretol dose, patient verbalized understanding. Denied any needs or concerns. Was able to rest with some restlessness noted.
[2018-12-20] MEDS: QUEtiapine FUM 100 MG TAB PO SCH ×2 (08:25→20:31)
[2018-12-20] MEDS: SPIRONOLACTONE 25 MG TAB PO SCH ×2 (08:26→20:30)
[2018-12-20] MEDS: HYDROCORTISONE 1% CR 28.35 GM TP PRN (08:27)
[2018-12-20] MEDS: DOXYCYCLINE HYCL 100 MG TAB PO SCH (08:27)
[2018-12-20] MEDS: carBAMazepine 100 MG CHEW PO SCH ×2 (08:27→20:31)
--- NOTE | 2018-12-20 13:21 | BHS Progress Note ---
S - Subjective Progress Notes Subjective Pt seen in Unit C. Pt says she slept better last night with the chlorpromazine-- she would like to continue that dose (100 mg). Says she feels better on less tegretol, and she continues to express desire to wean it completely bc she felt it was making her depressed. She has not been aggressive. We have allowed her to have a radio and tv in unit C. She says she does get delusional thinking at night right before bed, but denies any delusions during the day. Today is not talking about me having her "in a study." She did start to raise her voice angrily when complaining about having to be in the hospital so long when she feels she is fine and ought to be allowed to go home. Denies constipation, appetite is good. Will continue two neuroleptics in this unstable pt for the time being until she can get to [facility] where she can start likely clozaril trial. Suicidal Ideation: None Homicidal Ideation: None S - Objective Physical Exam Vital Signs Vital Signs 12/19/18 12/19/18 05:09 20:45 Temp 97.7 Pulse 109 Resp 14 B/P (MAP) 133/80 (97) Pulse Ox 93 O2 Delivery Room Air Muscle Strength and Tone: WNL Gait and Station: Steady [facility] Medications Reviewed: Side Effects, Benefits of Medication, Risks Allergies Reviewed: Yes Mental Status Exam General Appearance: Casual, Well Groomed, Cooperative, Other (still irritable but no longer aggressive) Speech: Clear, Spontaneous, Normal Rate, Normal Rhythm, Normal Volume, Normal Tone, Rambling (pressured) Mood: Dysthmic/Depressed, Euthymic, Other (irritable) Affect: Sad, Agitated, Other (labile, irritable, hyperthymic.) Thought Process: Other (circumstantial ) Thought Content: No Suicidal Ideation, No Homicidal Ideation; Delusions (again talking about how we are studying her.); No Auditory Halllucinations, No Visual Hallucinations, No Thought Broadcasting, No Ideas of Reference, No Obsessions, No Compulsions, No Other Sensorium: Clear Cognition: Alert & Oriented-Person, Alert & Oriented-Place, Alert & Oriented- Time, Hzmns-Fbtkjsef-Ssmlznmnx Memory: Immediate, Recent, Remote Intelligence: Average Insight Judgment: Poor (due to psychosis) Result Diagram: 12/18/18 0704 12/18/18 0704 [facility] Assessment and Plan Zeir-fh-Jahv Encounter Date: Dec 20, 2018 Kejn-ok-Rwow Encounter Time: 08:30 [facility] Plan: Necessary Precautions, Individual/Group Therapy, Admin/Titrate Meds, Educate Patient Tobacco Medications: Started Multpiple Antipsychotics Used: Yes Reason For >1 Antipsychotic: Temporary for this unstable treatment-resistant pt who will likely begin cloxapine trial once she is at [facility]. Problems: (1) Schizoaffective disorder, bipolar type Status: Chronic GEO MARION MD Dec 20, 2018 13:21
[2018-12-20] MEDS: ACETAMINOPHEN 325 MG TAB PO PRN (19:19)
[2018-12-20] MEDS: chlorproMAZINE 25 MG TAB PO SCH (20:30)
[2018-12-20 22:11] VITALS: BP 128/94
--- NOTE | 2018-12-21 06:04 | NUR ---
Patient has slept fairly well during night. Currently laying in bed with ou closed, respirations even and unlabored. No s/s of distress or discomfort noted.
[2018-12-21] MEDS: HYDROCORTISONE 1% CR 28.35 GM TP PRN (07:43)
[2018-12-21] MEDS: QUEtiapine FUM 100 MG TAB PO SCH ×2 (07:44→22:01)
[2018-12-21] MEDS: carBAMazepine 100 MG CHEW PO SCH ×2 (07:44→22:02)
[2018-12-21] MEDS: SPIRONOLACTONE 25 MG TAB PO SCH ×2 (07:44→22:02)
[2018-12-21] MEDS: DOXYCYCLINE HYCL 100 MG TAB PO SCH (07:45)
--- NOTE | 2018-12-21 08:18 | BHS Progress Note ---
BHS - Subjective Progress Notes Subjective Subjective Pt seen in Unit C. "I slept well. If I don't take food with the Thorazine it makes me sick. I've been on it before. I feel better with less Tegretol. I'm only having some weird thoughts at night when I'm trying to get to sleep. I'm not really depressed but I'm starting to get antsy." Reports sleep sufficient, some racing thoughts at night, denies auditory/visual hallucinations or delusional thoughts Minimal depression, anxiety "It's always high." Maintaining behavior, watching tv, cooperative during " Will continue with Seroquel bid and Thorazine in pm with two neuroleptics at present time until she can be transferred to [facility] and possibly start Clozaril trial Suicidal Ideation: None Homicidal Ideation: None S - Objective Physical Exam Vital Signs Laboratory Tests 12/18/18 07:04 Laboratory Tests 11/26/18 16:25: Tuberculin Skin Test 0 12/12/18 06:25: Triglycerides Level 152, Cholesterol Level 146, LDL Cholesterol 75, VLDL Cholesterol 30, HDL Cholesterol 41, Percent HDL Cholesterol 28.0, Cholesterol Ratio (LDL/HDL) 1.82, Cholesterol/HDL Ratio 3.6, Vitamin D 25-Hydroxy 32, Free Thyroxine 0.53, Free Triiodothyronine 2.4 12/18/18 07:04: White Blood Count 6.7, Red Blood Count 4.62, Hemoglobin 14.2, Hematocrit 42.8, Mean Corpuscular Volume 92.6, Mean Corpuscular Hemoglobin 30.7, Mean Corpuscular Hemoglobin Concent 33.2, Red Cell Distribution Width 13.3, Platelet Count 347, Mean Platelet Volume 6.4, Neutrophils (%) (Auto) 48.5, Lymphocytes (%) (Auto) 40.0, Monocytes (%) (Auto) 7.3, Eosinophils (%) (Auto) 3.9, Basophils (%) (Auto) 0.3, Nucleated RBC Relative Count (auto) 0.0, Neutrophils # (Auto) 3.3, Lymphocytes # (Auto) 2.7, Monocytes # (Auto) 0.5, Eosinophils # (Auto) 0.3, Basophils # (Auto) 0.0, Nucleated RBC Absolute Count (auto) 0.00, Sodium Level 138, Potassium Level 3.5, Chloride Level 104, Carbon Dioxide Level 22, Blood Urea Nitrogen 14, Creatinine 0.70, Glomerular Filtration Rate Calc > 60.0, Random Glucose 120, Calcium Level 9.4, Total Bilirubin 0.2, Aspartate Amino Transf (AST/SGOT) 20, Alanine Aminotransferase (ALT/SGPT) 31, Alkaline Phosphatase 50, Total Protein 7.1, Albumin 4.3, Carbamazepine (Tegretol) Level 6.5, Carbamazepine Time Since Last Dose 2099, Carbamazepine Last Dose Date 12.17.18 12/21/18 06:12: Medications (Trade) Dose Ordered Sig/Tere Route PRN Reason Start Time Stop Time Status Last Admin Dose Admin Acetaminophen (Tylenol(*)325 Mg Tab (Or Equiv)) 650 mg Q6H PRN PO FEVER/PAIN 12/10/18 10:50 01/09/19 10:49 12/20/18 19:19 Al Hydrox/Mg Hydrox/Simethicone (Maalox(*) 30 ml Udcup (Or Equiv)) 30 ml Q4H PRN PO DYSPEPSIA 12/10/18 10:50 01/09/19 10:49 12/16/18 20:21 Bupropion HCl (Wellbutrin 75 Mg Tab (Or Equiv)) 75 mg DAILY PO 12/16/18 11:30 12/18/18 12:13 DC 12/18/18 08:06 Carbamazepine (TEGretol 100 MG CHEW (OR EQUIV)) 200 mg BID PO 12/19/18 21:00 12/21/18 09:01 12/21/18 07:44 Carbamazepine (TEGretol(*)200 MG TAB (OR EQUIV)) 200 mg BID PO 12/02/18 09:20 12/06/18 15:02 DC 12/06/18 07:37 Chlorpromazine HCl (Thorazine 25 Mg Tab (Or Equiv)) 100 mg QHS PO 12/19/18 21:00 01/18/19 20:59 12/20/18 20:30 Chlorpromazine HCl (Thorazine(*) 50 Mg/2 ml Amp (Or Equiv)) 100 mg Q6H PRN IM SEVERE AGITATION 12/10/18 10:50 01/09/19 10:49 12/18/18 15:16 Diphenhydramine HCl (Benadryl(*) 25 Mg Cap (Or Equiv)) 50 mg ONCE ONCE PO 11/22/18 21:00 11/22/18 21:01 DC 11/22/18 20:21 Diphenhydramine HCl (Benadryl(*) 50 Mg/ml Vial (Or Equiv)) 50 mg Q6H PRN IM AGITATION 12/11/18 11:25 01/10/19 11:24 12/18/18 15:16 Doxycycline Hyclate (Vibramycin(*) 100 Mg Tab (Or Equiv)) 100 mg QDAY PO 12/10/18 09:00 12/24/18 08:59 12/21/18 07:45 Hydrocortisone (Cortisone 1% Cr 28.35 Gm Tube (Or Equiv)) APPLY TO AFFECTED AREAS BID PRN TP irritation 12/10/18 10:50 01/09/19 10:49 12/21/18 07:43 Influenza Virus Vaccine Quadrival (Flu Vac (3853-1804 Formula)) 0.5 ml ONCE ONCE IM ONLY 11/27/18 11:10 11/27/18 11:12 DC 11/27/18 11:50 Lorazepam (Ativan(*) 1 Mg Tab (Or Equiv)) 2 mg ONCE ONCE PO 12/18/18 18:45 12/18/18 18:46 DC 12/18/18 18:57 Lorazepam (Ativan(*) 2 Mg/ ml Vial (Or Equiv)) 2 mg Q6H PRN IM ANXIETY 12/10/18 10:50 12/24/18 10:49 12/18/18 15:15 Olanzapine (zyPREXA (OR EQUIV)) 10 mg Q6H PRN PO AGITATION 12/10/18 10:55 12/11/18 11:40 DC 12/11/18 02:37 Olanzapine (zyPREXA(*) (OR EQUIV)) 10 mg Q6H PRN IM ONLY SEVERE AGITATION 12/03/18 23:30 12/07/18 10:11 DC 12/06/18 12:03 Prazosin HCl (Minipress 1 Mg Cap (Or Equiv)) 1 mg QHS PO 11/27/18 21:00 12/02/18 06:24 DC 12/01/18 20:15 Quetiapine Fumarate (SEROquel 100 MG TAB (OR EQUIV)) 800 mg QHS PO 12/10/18 21:00 01/09/19 20:59 12/20/18 20:31 Spironolactone (Aldactone 25 Mg Tab (Or Equiv)) 100 mg BID PO 12/10/18 09:00 01/09/19 08:59 12/21/18 07:44 Sterile Water (Sterile Water Injection(*) 10 ml Vial) 2.1 ml Q6H PRN IM ONLY AGITATION 12/03/18 23:30 12/07/18 10:11 DC 12/06/18 12:02 Muscle Strength and Tone: WNL Gait and Station: Steady [facility] Medications Reviewed: Side Effects, Benefits of Medication, Risks Allergies Reviewed: Yes Mental Status Exam General Appearance: Casual, Well Groomed, Cooperative, Other (still irritable but no longer aggressive) Speech: Clear, Spontaneous, Normal Rate, Normal Rhythm, Normal Volume, Normal Tone, Rambling (pressured) Mood: No Dysthmic/Depressed; Euthymic; No Other Affect: Full and Appropriate, Calm; No Sad, No Agitated; Other Thought Process: Organized, Logical, Other (circumstantial ) Thought Content: No Suicidal Ideation, No Homicidal Ideation, No Delusions, No Auditory Halllucinations, No Visual Hallucinations, No Thought Broadcasting, No Ideas of Reference, No Obsessions, No Compulsions, No Other Sensorium: Clear Cognition: Alert & Oriented-Person, Alert & Oriented-Place, Alert & Oriented- Time, Cdejr-Fiebspuu-Jqxoycglr Memory: Immediate, Recent, Remote Intelligence: Average Insight Judgment: Poor (due to psychosis) Result Diagram: 12/18/18 0704 12/18/18 0704 [facility] Assessment and Plan Ozqi-zt-Mftx Encounter Date: Dec 21, 2018 Fuhh-sc-Qtlf Encounter Time: 08:15 [facility] Plan: Necessary Precautions, Individual/Group Therapy, Admin/Titrate Meds, Educate Patient Tobacco Medications: Started Multpiple Antipsychotics Used: Yes Reason For >1 Antipsychotic: Temporary for this unstable treatment-resistant pt who will likely begin cloxapine trial once she is at [facility]. Problems: (1) Schizoaffective disorder, bipolar type Status: Chronic Condition Continue Seroquel bid, Thorazpine q pm Maintain precautions Awaiting transfer to [facility] DANIEL ROMERO NP Dec 21, 2018 08:18
[2018-12-21 10:00] VITALS: BP 111/87
--- NOTE | 2018-12-21 17:36 | NUR ---
During group with the therapist this patient was invited to attend. She became agitated and reportedly said something regarding people stealing her ideas and following her around. There was a patient in the group that was here during a previous visit that was possibly a trigger for the patient. After making this comment (supposedly about the other patient) she left group, loudly slammed the door to the TV/group room loudly and returned straight to her room in Unit C where she laid down.
[2018-12-21] MEDS: chlorproMAZINE 25 MG TAB PO SCH (22:02)
[2018-12-22] MEDS: HYDROCORTISONE 1% CR 28.35 GM TP PRN (07:45)
[2018-12-22] MEDS: carBAMazepine 100 MG CHEW PO SCH ×2 (07:45→19:32)
[2018-12-22] MEDS: DOXYCYCLINE HYCL 100 MG TAB PO SCH (07:45)
[2018-12-22] MEDS: QUEtiapine FUM 100 MG TAB PO SCH ×2 (07:46→19:32)
[2018-12-22] MEDS: SPIRONOLACTONE 25 MG TAB PO SCH ×2 (07:47→19:33)
--- NOTE | 2018-12-22 13:06 | BHS Progress Note ---
[facility] - Subjective Progress Notes Subjective "I'm fine. When can I get out of here?" Suicidal Ideation: None Homicidal Ideation: None [facility] - Objective Physical Exam Vital Signs Vital Signs Date Time Temp Pulse Resp B/P (MAP) Pulse Ox O2 Delivery O2 Flow Rate FiO2 12/21/18 10:00 97.2 110 18 111/87 (95) 95 Room Air 12/20/18 22:11 Muscle Strength and Tone: WNL Gait and Station: Steady [facility] Medications Reviewed: Side Effects, Benefits of Medication, Risks Allergies Reviewed: Yes Mental Status Exam General Appearance: Casual, Well Groomed, Cooperative, Other (still irritable but no longer aggressive) Speech: Clear, Spontaneous, Normal Rate, Normal Rhythm, Normal Volume, Normal T one, Rambling (pressured) Mood: No Dysthmic/Depressed; Euthymic; No Other Affect: Full and Appropriate, Calm; No Sad, No Agitated; Other Thought Process: Organized, Logical, Other (circumstantial ) Thought Content: No Suicidal Ideation, No Homicidal Ideation, No Delusions, No Auditory Halllucinations, No Visual Hallucinations, No Thought Broadcasting, No Ideas of Reference, No Obsessions, No Compulsions, No Other Sensorium: Clear Cognition: Alert & Oriented-Person, Alert & Oriented-Place, Alert & Oriented- Time, Wimgw-Yqplqrfu-Ewszksiur Memory: Immediate, Recent, Remote Intelligence: Average Insight Judgment: Poor (due to psychosis) Result Diagram: 12/18/18 0704 12/18/18 0704 [facility] Assessment and Plan Zcbq-oi-[id number] Encounter Date: Dec 22, 2018 Azrx-cs-Czbc Encounter Time: 12:15 [facility] Plan: Necessary Precautions, Individual/Group Therapy, Admin/Titrate Meds, Educate Patient Tobacco Medications: Started Multpiple Antipsychotics Used: Yes Reason For >1 Antipsychotic: Temporary for this unstable treatment-resistant pt who will likely begin cloxapine trial once she is at [facility]. Problems: (1) Schizoaffective disorder, bipolar type Status: Chronic JERI CARD NP Dec 22, 2018 13:06
[2018-12-22] MEDS: LORazepam 1 MG TAB PO PRN ×2 (14:09→18:14)
[2018-12-22 14:10] VITALS: BP 124/86
--- NOTE | 2018-12-22 18:18 | NUR ---
Order given TORB per Preeti Bryan, PMHNP-BC to give PRN Ativan 1mg PO early. Pt has been having to listen to another patient screaming, and has been escalating slightly.
[2018-12-22] MEDS: chlorproMAZINE 25 MG TAB PO SCH (19:31)
[2018-12-22] MEDS: MAG HYD/AL HYD/SIMETH 30ML UDC PO PRN (19:33)
[2018-12-22] MEDS ORDERED: hydrOXYzine PAMOATE 25 MG CAP PO PRN (22:05)
[2018-12-23] MEDS: carBAMazepine 100 MG CHEW PO SCH (07:52)
[2018-12-23] MEDS: SPIRONOLACTONE 25 MG TAB PO SCH ×2 (07:53→20:46)
[2018-12-23] MEDS: DOXYCYCLINE HYCL 100 MG TAB PO SCH (07:53)
[2018-12-23] MEDS: QUEtiapine FUM 100 MG TAB PO SCH ×2 (07:53→20:46)
[2018-12-23] MEDS: HYDROCORTISONE 1% CR 28.35 GM TP PRN (07:54)
[2018-12-23 07:55] VITALS: BP 112/84
[2018-12-23] MEDS: MAG HYD/AL HYD/SIMETH 30ML UDC PO PRN (12:12)
[2018-12-23] MEDS: LORazepam 1 MG TAB PO PRN (16:04)
[2018-12-23] MEDS ORDERED: LORazepam 1 MG TAB PO ONE (16:10)
[2018-12-23] MEDS: ACETAMINOPHEN 325 MG TAB PO PRN (16:14)
[2018-12-23] MEDS ORDERED: MAGNESIUM HYDROXIDE* 30ML UDCP PO PRN ×2 (16:15→16:40)
--- NOTE | 2018-12-23 16:21 | BHS Progress Note ---
[facility] - Subjective Progress Notes Subjective Bibi continues highly agitated and is being kept separate from the rest of the patient population. She is on aggression precautions. I met with her twice today and also discussed her care with Sonali Bryan who covered over the weekend and with Dr. Navarro. Bibi is being tapered off of carbamazepine. She is on 1200 mgs of Seroquel but continues to be very agitated. She told me this morning that she can't talk about what is "going on" because people will think it is symptomatic of mental illness. She still has pressured speech and is easily agitated. We initially talked about reducing the Seroquel and transitioning to a new antipsychotic. We discussed options and although she initially agreed to try Invega stating that she did well on it in the past, then she changed her mind and asked to talk to me again refusing the Invega and not wanting to try anything else. She was tearful and very upset. I suggested we try Latuda beginning in the morning and she did agree to that. I also offered to start her on a routine dose of Ativan to help manage her agitation. Suicidal Ideation: None Homicidal Ideation: None S - Objective Physical Exam Vital Signs Bllod presure is 112/84, pulse elevated at 107, O2 93 and temp 97.5 this morning. We need to get a weight on the patient. Muscle Strength and Tone: WNL Gait and Station: Steady [facility] Medications Reviewed: Side Effects, Benefits of Medication, Risks Allergies Reviewed: Yes Mental Status Exam General Appearance: Casual, Well Groomed, Tearful, Psychomotor Agitation Speech: Clear, Spontaneous, Normal Rhythm, Rambling (pressured), Other (Elevated and pressured) Mood: Dysthmic/Depressed Affect: Sad, Tearful, Anxious, Agitated Thought Process: Flight of Ideas, Other (circumstantial ) Thought Content: Delusions (See history) Sensorium: Clear Cognition: Alert & Oriented-Person, Alert & Oriented-Place, Alert & Oriented- Time, Ehhyj-Apupjybd-Gbtpndohi Intelligence: Average Insight Judgment: Poor (due to psychosis) [facility] Assessment and Plan Cxkd-xm-Cbty Encounter Date: Dec 23, 2018 Sbrx-ly-Othl Encounter Time: 15:00 [facility] Plan: Necessary Precautions, Individual/Group Therapy, Admin/Titrate Meds, Educate Patient Tobacco Medications: Started Multpiple Antipsychotics Used: Yes Reason For >1 Antipsychotic: Cross taper Problems: (1) Schizoaffective disorder, bipolar type Status: Chronic Condition I am 1. Starting a routine dose of Ativan 2 mgs q 8 hours for agitation 2. Reducing Seroquel to 800 mgs at night and hope to ultimately stop it. 3. Start Latuda 40 mgs in the morning and gradually increase 4. Weigh patient today and weekly 5. Check HbA1c and another fasting sugar. 6. Stop carbamazepine 7. Continue close observation and precautions. Hope to move Bibi back to patient population as soon as she is safe to be with others. TAI EVANS DO Dec 23, 2018 16:21
[2018-12-23] MEDS: DOCUSATE SODIUM 100 MG CAP PO SCH (20:46)
[2018-12-23] MEDS: chlorproMAZINE 25 MG TAB PO SCH ×2 (20:46→22:05)
[2018-12-23] MEDS ORDERED: chlorproMAZINE 25 MG TAB ONE (20:50)
--- NOTE | 2018-12-24 05:47 | BHS Progress Note ---
[facility] - Subjective Progress Notes Subjective Lorazepam 2 mgs every 8 hours Seroquel 800 mgs at night Latuda 40 mgs each morning Chlorpromazine 100 mgs at night daily Yesterday, I ordered Latuda for Bibi after reducing her Seroquel to 800 mgs at night. She received her first dose of Latuda this morning. She has tolerated it without diffiiculty I am concerned about Bibi's elevated glucose and ordered another for this morning as well as a HgA1c and weekly weights. Her HgA1c was 5.6 and fasting glucose 76 this morning. I met with Bibi several times today to discuss her concerns, our medication plan, the plan to transfer her to [facility] and my desire to begin trying to reintegrate her into the milieu. She is less agitated today but still adamantly believes that songs on the radio are about her personally. We agreed that it probably helps to limit the time she spends listening to the radio. No signs of EPS or TD. She is not sedated with her current medications. Suicidal Ideation: None Homicidal Ideation: None [facility] - Objective Physical Exam Vital Signs 97.8, 80, 91/70, 92% Muscle Strength and Tone: WNL Gait and Station: Steady [facility] Medications Reviewed: Side Effects, Benefits of Medication, Risks Allergies Reviewed: Yes Mental Status Exam General Appearance: Casual, Well Groomed, Cooperative, Tearful, Psychomotor Agitation, Other (affect is variable depending on the context) Speech: Clear, Spontaneous, Normal Rhythm, Rambling (pressured at times) Mood: Dysthmic/Depressed Affect: Sad, Tearful, Anxious, Agitated Thought Process: Flight of Ideas, Other (often hard to follow ) Thought Content: Delusions (See history), Ideas of Reference (see history) Sensorium: Clear Cognition: Alert & Oriented-Person, Alert & Oriented-Place, Alert & Oriented- Time, Gyfyg-Wnmunqmj-Qcmwjrcvu Intelligence: Average Insight Judgment: Poor (due to psychosis) [facility] Assessment and Plan Ppae-nq-Giol Encounter Date: Dec 24, 2018 Swtp-co-Uwfa Encounter Time: 09:15 [facility] Plan: Necessary Precautions, Individual/Group Therapy, Admin/Titrate Meds, Educate Patient Tobacco Medications: Started Multpiple Antipsychotics Used: Yes Reason For >1 Antipsychotic: Cross taper Problems: (1) Schizoaffective disorder, bipolar type Status: Chronic (2) Obesity Status: Chronic (3) Hyperglycemia Status: Resolved Assessment & Plan: 1. Increase Latuda to 40 mgs twice daily today and anticipate going to 60 mgs twice daily tomorrow is tolerated 2. Reduce Seroquel to 600 mgs at night daily. Anticipate reducing this further 3. Continue Ativan 2 mgs every eight hours. 4. Stop routine chlorpromazine Problem Qualifiers (1) Obesity: Body mass index: BMI 35.0-35.9 TAI EVANS DO Dec 24, 2018 05:47
[2018-12-24 06:22] VITALS: BP 91/70
[2018-12-24] MEDS: ACETAMINOPHEN 325 MG TAB PO PRN (07:51)
[2018-12-24] MEDS ORDERED: LURASIDONE 40 MG TAB PO SCH (08:00)
[2018-12-24] MEDS: DOXYCYCLINE HYCL 100 MG TAB PO SCH (08:12)
[2018-12-24] MEDS: DOCUSATE SODIUM 100 MG CAP PO SCH ×2 (08:12→20:28)
[2018-12-24] MEDS: LORazepam 1 MG TAB PO SCH ×2 (08:13→17:36)
[2018-12-24] MEDS: SPIRONOLACTONE 25 MG TAB PO SCH ×2 (08:14→20:28)
[2018-12-24] MEDS: HYDROCORTISONE 1% CR 28.35 GM TP PRN (08:15)
[2018-12-24] MEDS ORDERED: chlorproMAZINE 25 MG TAB PO PRN (17:10)
[2018-12-24] MEDS: LURASIDONE 40 MG TAB PO SCH (17:35)
[2018-12-24] MEDS: QUEtiapine FUM 100 MG TAB PO SCH (20:28)
--- NOTE | 2018-12-24 22:16 | NUR ---
While watching the movie with pt. I initially was sitting on the floor and pt. asked me to sit on her bed. I was reluctant at first, but then agreed to and sat on the far end of the bed nearest to the portable TV in her room. Pt.them started asking questions like, "Who all can see the camera?, Do you like me? Were you uncomfortable the other night when you came into the room?" I replied to all of these questions in the most professional, yet gentle way I could. The reason why I went into the pts. room the other week was because the pt. left a movie that me and other pts. were watching called, " and Mrs. Burris" I asked the pt. if anything was wrong, to which pt. replied, "no". However, she was crying so I pressed a little further. To which she responded I haven't seen anyone for over a year and watching that movie made me lonely. Once I realized what the pt. was doing, which was masturbating under the covers, I immediately left and told her if we could do anything for her, let us know. Now back to this evening, I told the pt. I think your a pretty good patient all things considered, however I have no personal feelings for you. I am happily and I don't want you to get the wrong idea. I replied that everyone in the nurses station can see the cameras. I also replied that once I figured out what was going on in your room the other night, I was uncomfortable. I hope that I was able to set solid boundaries with the pt. and that nothing more will be brought up about this.
[2018-12-25] MEDS: LORazepam 1 MG TAB PO SCH ×4 (01:00→21:10)
[2018-12-25 06:05] VITALS: BP 114/88
--- NOTE | 2018-12-25 06:37 | BHS Progress Note ---
BHS - Subjective Progress Notes Subjective Yesterday's Assessment & Plan: 1. Increase Latuda to 40 mgs twice daily today and anticipate going to 60 mgs twice daily tomorrow is tolerated 2. Reduce Seroquel to 600 mgs at night daily. Anticipate reducing this further 3. Continue Ativan 2 mgs every eight hours. 4. Stop routine chlorpromazine I met with Bibi several times today beginning in the morning before rounds. She is less agitated but continues to be very delusional. Since she focuses so strongly on the belief that others on the unit are "copying" what she does and she is uncertain about whether she can handle being around that other patients now, I am not going to push her to rejoin the milieu. She talked a lot today about her on-going belief that "people in the music industry" are putting songs about her on the radio, that people have "hacked" her phone, people were stalking her and her boyfriend and similar themes. She is tolerating the Latuda well without sedation or EPS. This afternoon, Bibi and I had another conversation about how sad she feels that she has no one in her life. She feels abandoned by all of her family. Her former boyfriend will not return her calls. She feels her mother has taken her son from her. She was crying bitterly about these losses. I worked on validating these feelings to comfort and reassure her. Suicidal Ideation: None Homicidal Ideation: None BHS - Objective Physical Exam Muscle Strength and Tone: WNL Gait and Station: Steady BHS Medications Reviewed: Side Effects, Benefits of Medication, Risks Allergies Reviewed: Yes Mental Status Exam General Appearance: Casual, Well Groomed, Good Eye Contact, Cooperative, Good Interaction, Tearful, Psychomotor Agitation, Other (affect is variable depending on the context) Speech: Clear, Spontaneous, Normal Rhythm, Rambling (pressured at times) Mood: Dysthmic/Depressed Affect: Full and Appropriate, Sad, Tearful, Anxious, Agitated Thought Process: Other (often hard to follow ) Thought Content: No Suicidal Ideation, No Homicidal Ideation; Delusions (See h istory), Ideas of Reference (see history) Sensorium: Clear Cognition: Alert & Oriented-Person, Alert & Oriented-Place, Alert & Oriented- Time, Ratym-Mpdofbmu-Ailadzuwv Intelligence: Average Insight Judgment: Poor (due to psychosis) [facility] Assessment and Plan [id number] Encounter Date: Dec 25, 2018 Cbhr-[id number]-Raqv Encounter Time: 08:30 [facility] Plan: Necessary Precautions, Individual/Group Therapy, Admin/Titrate Meds, Educate Patient Tobacco Medications: Started Multpiple Antipsychotics Used: Yes Reason For >1 Antipsychotic: Cross taper Problems: (1) Schizoaffective disorder, bipolar type Status: Chronic (2) Obesity Status: Chronic Condition Plan 12/25: 1. Advance Latuda as tolerated to 40 mgs with each meal beginning today. 2. Continue lorazepam routine to manage agitation 3. Continue in controlled stimulus environment until Bibi is able to tolerate the milieu without it triggering her paranoid beliefs about others. Problem Qualifiers (1) Obesity: Body mass index: BMI 35.0-35.9 TAI EVANS DO Dec 25, 2018 06:37
[2018-12-25] MEDS: SPIRONOLACTONE 25 MG TAB PO SCH ×2 (07:57→21:07)
[2018-12-25] MEDS: DOXYCYCLINE HYCL 100 MG TAB PO SCH (07:58)
[2018-12-25] MEDS: DOCUSATE SODIUM 100 MG CAP PO SCH ×2 (07:58→21:00)
[2018-12-25] MEDS: LURASIDONE 40 MG TAB PO SCH ×4 (07:58→21:10)
[2018-12-25] MEDS: HYDROCORTISONE 1% CR 28.35 GM TP PRN (07:59)
[2018-12-25] MEDS: QUEtiapine FUM 100 MG TAB PO SCH (21:08)
[2018-12-26] MEDS ORDERED: QUEtiapine FUM 100 MG TAB PO SCH ×2 (05:45→21:00)
[2018-12-26] MEDS ORDERED: LURASIDONE 40 MG TAB PO SCH (05:45)
[2018-12-26] MEDS: LORazepam 1 MG TAB PO SCH ×3 (08:04→20:29)
[2018-12-26] MEDS: SPIRONOLACTONE 25 MG TAB PO SCH ×2 (08:04→20:29)
[2018-12-26] MEDS: DOCUSATE SODIUM 100 MG CAP PO SCH ×2 (08:04→20:28)
[2018-12-26] MEDS: DOXYCYCLINE HYCL 100 MG TAB PO SCH (08:05)
[2018-12-26] MEDS: HYDROCORTISONE 1% CR 28.35 GM TP PRN (08:08)
--- NOTE | 2018-12-26 10:31 | BHS Progress Note ---
[facility] - Subjective Progress Notes Subjective Plan 12/25: 1. Advance Latuda as tolerated to 40 mgs with each meal beginning today. 2. Continue lorazepam routine to manage agitation 3. Continue in controlled stimulus environment until Bibi is able to tolerate the milieu without it triggering her paranoid beliefs about others. Today, 12/26: I met with Bibi several times yesterday. She was especially tearful about the losses she has experienced, but these emotions were appropriate to her situation and not delusionally based although she continues to be reluctant to join the others on the unit and I have not pressed her to. She has been occupying herself coloring, drawing and writing in her room. Today, she was able to join us in the treatment team room. She is showing some awareness that sometimes she isn't sure if what she is thinking is real or delusional. Her mood is better and affect calmer. She feels that she could join the milieu this afternoon and begin to come out of her room and to join the others. Suicidal Ideation: None Homicidal Ideation: None [facility] - Objective Physical Exam Muscle Strength and Tone: WNL Gait and Station: Steady [facility] Medications Reviewed: Side Effects, Benefits of Medication, Risks Allergies Reviewed: Yes Mental Status Exam General Appearance: Casual, Well Groomed, Good Eye Contact, Cooperative, Polite, Good Interaction; No Tearful, No Psychomotor Agitation Speech: Clear, Spontaneous, Normal Rate, Normal Rhythm, Normal Volume, Normal Tone; No Rambling Mood: Dysthmic/Depressed (but better) Affect: Neutral; No Tearful; Anxious; No Agitated Thought Process: Goal Directed, Other (often hard to follow ) Thought Content: No Suicidal Ideation, No Homicidal Ideation; Delusions (still believes songs on the radio are about her) Sensorium: Clear Cognition: Alert & Oriented-Person, Alert & Oriented-Place, Alert & Oriented- Time, Ouumh-Gvbigjpt-Kqaesxqeh Intelligence: Average Insight Judgment: Poor (due to psychosis) [facility] Assessment and Plan Guqc-cs-Ugwn Encounter Date: Dec 26, 2018 Zkvy-gn-[id number] Encounter Time: 10:15 [facility] Plan: Necessary Precautions, Individual/Group Therapy, Admin/Titrate Meds, Educate Patient Tobacco Medications: Started Multpiple Antipsychotics Used: Yes Reason For >1 Antipsychotic: Cross taper Problems: (1) Schizoaffective disorder, bipolar type Status: Chronic (2) Obesity Status: Chronic Condition Plan 12/26: 1. Reduce Seroquel to 200 mgs then discontinue 2. Continue Latuda 120 mgs daily, but I am going to BID dosing now. 3. Bibi is going to try attending group today and have lunch with the milieu. Problem Qualifiers (1) Obesity: Body mass index: BMI 35.0-35.9 TAI EVANS DO Dec 26, 2018 06:03
[2018-12-26] MEDS: LURASIDONE 40 MG TAB PO SCH (17:21)
--- NOTE | 2018-12-27 06:28 | BHS Progress Note ---
BHS - Subjective Progress Notes Subjective Plan 12/26: 1. Reduce Seroquel to 200 mgs then discontinue 2. Continue Latuda 120 mgs daily, but I am going to BID dosing now. 3. Bibi is going to try attending group today and have lunch with the milieu. Today, 12/27: Medications: Latuda 60 mgs twice daily Lorazepam 2 mgs morning, afternoon, and evening Seroquel 200 mgs at bedtime daily Bibi was able to re-join the other patients on the unit yesterday. She still struggles with agitation and spent a lot of the day worrying about her lost suitcase and was on the phone trying to recover it. She has not had any aggressive episodes, now, in several days. She joined us for team this morning and shared that she now realizes that "I was hearing voices." However, she says that this is not happening now. She still gets agitated talking about her experiences at [facility] and in the [facility] and believes that people were trying to harm her. She did not mention as many other delusional themes today, however, and she admits that she is much better than on admission emotionally. Bibi is very weary of being here and would like to move on to the next stage of treatment. We informed her that the wait list for [facility] is long and she will probably be her for at least another week if not longer. She is unhappy about this and anxious to return to [place]. With Bibi's permission and after she signed a release, I called Tracy Mercado who has worked with Bibi at [facility]. We reviewed Bibi's care there. Bibi was last seen by their psychiatrist in June of 2018. She was prescribed 1. [place] 300 mgs three times daily 2. Klonopin 1 mg twice daily 3. Levothyroxine 75 mcgs daily 4. Seroquel 600 mgs at . On the next visit, there is a note that Dr. Ferris started Abilify and reduced Seroquel. I updated Ms. Mercado regarding Bibi's progress and especially the severity of her psychosis. I let them know that Seroquel was not effective in controlling her delusions and hallucinations and emphasized the importance of recognizing and treating her psychosis with adequate antipsychotic medications. I mentioned my concern that some might see her as primarily "Borderline" but this is not her main problem. My hope is that an outpatient court commitment may improve Bibi's compliance with outpatient treatment and taking an adequate dose of an antipsychotic medication. Suicidal Ideation: None Homicidal Ideation: None S - Objective Physical Exam Vital Signs 98.2, 115, 18, 112/78, 93% Muscle Strength and Tone: WNL Gait and Station: Steady [facility] Medications Reviewed: Side Effects, Benefits of Medication, Risks Allergies Reviewed: Yes Mental Status Exam General Appearance: Casual, Well Groomed, Good Eye Contact, Cooperative, Polite, Good Interaction; No Tearful; Psychomotor Agitation (Still has some agitation when talking about her experiences at [facility] and in halfway. ) Speech: Clear, Spontaneous, Normal Rate, Normal Rhythm, Normal Volume, Normal Tone; No Rambling Mood: Euthymic Affect: No Tearful; Anxious, Agitated, Other (still relatively intense when discussing her problems with [facility] and the halfway. ) Thought Process: Organized, Logical, Goal Directed Thought Content: No Suicidal Ideation, No Homicidal Ideation, No Auditory Halllucinations; Other (still talks about getting sexually explicit messages from staff at the halfway.) Sensorium: Clear Cognition: Alert & Oriented-Person, Alert & Oriented-Place, Alert & Oriented- Time, Rcuyw-Zjzgeojk-Dazqlkais Intelligence: Average Insight Judgment: Fair [facility] Assessment and Plan [id number] Encounter Date: Dec 27, 2018 Rumx-yp-Vtju Encounter Time: 10:00 [facility] Plan: Necessary Precautions, Individual/Group Therapy, Admin/Titrate Meds, Educate Patient Tobacco Medications: Started Multpiple Antipsychotics Used: Yes Reason For >1 Antipsychotic: Cross taper Problems: (1) Schizoaffective disorder, bipolar type Status: Chronic (2) Obesity Status: Chronic Condition Plan 12/27: 1. Continue Latuda 60 mgs twice daily which is generally the maximum. We may try advancing the dose to 150 mgs daily after she gets a few more days on this dose, but the elementary librarian reports that doses greater than 120 are generally not more effective. Bibi has shown signs of responding to 120 mgs, so I would like to continue this for now. 2. I am continuing lorazepam for agitation on this routine schedule. This is a very stressful time for Bibi and I want her to be able to manage her anxiety well enough to be among the other patients and to avoid any more violent episodes. She is still easily agitated. 3. I am reducing Seroquel to 100 mgs and anticipate stopping it tomorrow. 4. I would also like to stop spironolactone and doxycycline since I believe these are primarily for acne and are not needed now. Problem Qualifiers (1) Obesity: Body mass index: BMI 35.0-35.9 TAI EVANS DO Dec 27, 2018 06:28
[2018-12-27] MEDS: HYDROCORTISONE 1% CR 28.35 GM TP PRN (08:08)
[2018-12-27] MEDS: LURASIDONE 40 MG TAB PO SCH ×2 (08:09→16:40)
[2018-12-27] MEDS: DOXYCYCLINE HYCL 100 MG TAB PO SCH (08:10)
[2018-12-27] MEDS: DOCUSATE SODIUM 100 MG CAP PO SCH ×2 (08:10→20:30)
[2018-12-27] MEDS: LORazepam 1 MG TAB PO SCH ×3 (08:10→20:30)
[2018-12-27] MEDS: SPIRONOLACTONE 25 MG TAB PO SCH ×2 (08:10→20:30)
[2018-12-27 09:00] VITALS: BP 112/78
[2018-12-27] MEDS ORDERED: ONDANSETRON 4 MG ODT TABDP SL ONE (17:25)
[2018-12-27] MEDS ORDERED: SPIRONOLACTONE 25 MG TAB PO SCH (21:00)
[2018-12-27] MEDS ORDERED: QUEtiapine FUM 100 MG TAB PO SCH ×2 (21:00)
[2018-12-28] MEDS: HYDROCORTISONE 1% CR 28.35 GM TP PRN (07:57)
[2018-12-28] MEDS: DOCUSATE SODIUM 100 MG CAP PO SCH ×2 (08:48→21:00)
[2018-12-28] MEDS: LURASIDONE 40 MG TAB PO SCH ×2 (08:49→16:24)
[2018-12-28] MEDS: SPIRONOLACTONE 25 MG TAB PO SCH ×2 (08:49→21:00)
[2018-12-28] MEDS: LORazepam 1 MG TAB PO SCH ×3 (08:49→21:00)
[2018-12-28] MEDS ORDERED: DOXYCYCLINE HYCL 100 MG TAB PO SCH ×2 (09:00→14:15)
--- NOTE | 2018-12-28 09:42 | BHS Progress Note ---
BHS - Subjective Progress Notes Subjective "I slept but I had a lot of dreams. I just want to rest." Seroquel discontinued, started on Latuda 60mg po bid, Lorazepam 2mg po tid Attending group and having meals with milieu Showering this am then returning to room, irritable although has been able to control behavior Previous admits at [facility], desires to be discharged to jail although at present time on [facility] list I Suicidal Ideation: None Homicidal Ideation: None [facility] - Objective Physical Exam Vital Signs Medications (Trade) Dose Ordered Sig/Tere Route PRN Reason Start Time Stop Time Status Last Admin Dose Admin Acetaminophen (Tylenol(*)325 Mg Tab (Or Equiv)) 650 mg Q6H PRN PO FEVER/PAIN 12/10/18 10:50 01/09/19 10:49 12/24/18 07:51 Al Hydrox/Mg Hydrox/Simethicone (Maalox(*) 30 ml Udcup (Or Equiv)) 30 ml Q4H PRN PO DYSPEPSIA 12/10/18 10:50 01/09/19 10:49 12/23/18 12:12 Bupropion HCl (Wellbutrin 75 Mg Tab (Or Equiv)) 75 mg DAILY PO 12/16/18 11:30 12/18/18 12:13 DC 12/18/18 08:06 Carbamazepine (TEGretol 100 MG CHEW (OR EQUIV)) 100 mg BID PO 12/21/18 21:00 12/23/18 09:01 DC 12/23/18 07:52 Carbamazepine (TEGretol(*)200 MG TAB (OR EQUIV)) 200 mg BID PO 12/02/18 09:20 12/06/18 15:02 DC 12/06/18 07:37 Chlorpromazine HCl (Thorazine 25 Mg Tab (Or Equiv)) 25 mg STK-MED ONCE .ROUTE 12/23/18 20:50 12/23/18 21:00 DC 12/23/18 20:50 Chlorpromazine HCl (Thorazine(*) 50 Mg/2 ml Amp (Or Equiv)) 100 mg Q6H PRN IM SEVERE AGITATION 12/10/18 10:50 01/09/19 10:49 12/18/18 15:16 Diphenhydramine HCl (Benadryl(*) 25 Mg Cap (Or Equiv)) 50 mg ONCE ONCE PO 11/22/18 21:00 11/22/18 21:01 DC 11/22/18 20:21 Diphenhydramine HCl (Benadryl(*) 50 Mg/ml Vial (Or Equiv)) 50 mg Q6H PRN IM AGITATION 12/11/18 11:25 01/10/19 11:24 12/18/18 15:16 Docusate Sodium (Colace(*) 100 Mg Cap (Or Equiv)) 100 mg BID PO 12/23/18 21:00 01/22/19 20:59 12/28/18 08:48 Doxycycline Hyclate (Vibramycin(*) 100 Mg Tab (Or Equiv)) 100 mg DAILY PO 12/28/18 09:00 01/11/19 08:59 12/28/18 08:48 Hydrocortisone (Cortisone 1% Cr 28.35 Gm Tube (Or Equiv)) APPLY TO AFFECTED AREAS BID PRN TP irritation 12/10/18 10:50 01/09/19 10:49 12/28/18 07:57 Influenza Virus Vaccine Quadrival (Flu Vac ([id number] Formula)) 0.5 ml ONCE ONCE IM ONLY 11/27/18 11:10 11/27/18 11:12 DC 11/27/18 11:50 Lorazepam (Ativan(*) 1 Mg Tab (Or Equiv)) 2 mg TID PO 12/25/18 14:00 01/07/19 08:59 12/28/18 08:49 Lorazepam (Ativan(*) 2 Mg/ ml Vial (Or Equiv)) 2 mg Q6H PRN IM ANXIETY 12/10/18 10:50 01/24/19 10:49 12/18/18 15:15 Lurasidone HCl (Latuda 40 Mg Tab(Or Equiv)) 60 mg BIDBS PO 12/26/18 17:00 01/25/19 16:59 12/28/18 08:49 Olanzapine (zyPREXA (OR EQUIV)) 10 mg Q6H PRN PO AGITATION 12/10/18 10:55 12/11/18 11:40 DC 12/11/18 02:37 Olanzapine (zyPREXA(*) (OR EQUIV)) 10 mg Q6H PRN IM ONLY SEVERE AGITATION 12/03/18 23:30 12/07/18 10:11 DC 12/06/18 12:03 Ondansetron HCl (Zofran(*) 4 Mg Odt(Or Equiv)) 4 mg ONCE ONCE SL 12/27/18 17:25 12/27/18 17:38 DC 12/27/18 17:43 Prazosin HCl (Minipress 1 Mg Cap (Or Equiv)) 1 mg QHS PO 11/27/18 21:00 12/02/18 06:24 DC 12/01/18 20:15 Quetiapine Fumarate (SEROquel 100 MG TAB (OR EQUIV)) 100 mg QHS PO 12/27/18 21:00 12/28/18 20:59 12/27/18 20:30 Spironolactone (Aldactone 25 Mg Tab (Or Equiv)) 100 mg BID PO 12/27/18 21:00 01/26/19 20:59 12/28/18 08:49 Sterile Water (Sterile Water Injection(*) 10 ml Vial) 2.1 ml Q6H PRN IM ONLY AGITATION 12/03/18 23:30 12/07/18 10:11 DC 12/06/18 12:02 Muscle Strength and Tone: WNL Gait and Station: Steady [facility] Medications Reviewed: Side Effects, Benefits of Medication, Risks Allergies Reviewed: Yes Mental Status Exam General Appearance: Casual, Well Groomed, Good Eye Contact, Cooperative, Polite, Good Interaction; No Tearful; Psychomotor Agitation (Still has some agitation when talking about her experiences at [facility] and in penitentiary. ) Speech: Clear, Spontaneous, Normal Rate, Normal Rhythm, Normal Volume, Normal Tone; No Rambling Mood: No Euthymic; Other (labile) Affect: Calm, Flat; No Tearful; Anxious, Agitated; No Other Thought Process: Organized, Logical, Goal Directed Thought Content: No Suicidal Ideation, No Homicidal Ideation, No Auditory Halllucinations; Other (still talked about getting sexually explicit messages from staff at the penitentiary past week) Sensorium: Clear Cognition: Alert & Oriented-Person, Alert & Oriented-Place, Alert & Oriented- Time, Rfqxo-Jaqkkqyo-Fstecnnsp Intelligence: Average Insight Judgment: Fair Microbiology Laboratory Tests 12/18/18 07:04 Laboratory Tests 11/26/18 16:25: Tuberculin Skin Test 0 12/12/18 06:25: Triglycerides Level 152, Cholesterol Level 146, LDL Cholesterol 75, VLDL Cholesterol 30, HDL Cholesterol 41, Percent HDL Cholesterol 28.0, Cholesterol Ratio (LDL/HDL) 1.82, Cholesterol/HDL Ratio 3.6, Vitamin D 25-Hydroxy 32, Free Thyroxine 0.53, Free Triiodothyronine 2.4 12/18/18 07:04: White Blood Count 6.7, Red Blood Count 4.62, Hemoglobin 14.2, Hematocrit 42.8, Mean Corpuscular Volume 92.6, Mean Corpuscular Hemoglobin 30.7, Mean Corpuscular Hemoglobin Concent 33.2, Red Cell Distribution Width 13.3, Platelet Count 347, Mean Platelet Volume 6.4, Neutrophils (%) (Auto) 48.5, Lymphocytes (%) (Auto) 40.0, Monocytes (%) (Auto) 7.3, Eosinophils (%) (Auto) 3.9, Basophils (%) (Auto) 0.3, Nucleated RBC Relative Count (auto) 0.0, Neutrophils # (Auto) 3.3, Lymphocytes # (Auto) 2.7, Monocytes # (Auto) 0.5, Eosinophils # (Auto) 0.3, Basophils # (Auto) 0.0, Nucleated RBC Absolute Count (auto) 0.00, Sodium Level 138, Potassium Level 3.5, Chloride Level 104, Carbon Dioxide Level 22, Blood Urea Nitrogen 14, Creatinine 0.70, Glomerular Filtration Rate Calc > 60.0, Random Glucose 120, Calcium Level 9.4, Total Bilirubin 0.2, Aspartate Amino Transf (AST/SGOT) 20, Alanine Aminotransferase (ALT/SGPT) 31, Alkaline Phosphatase 50, Total Protein 7.1, Albumin 4.3, Carbamazepine (Tegretol) Level 6.5, Carbamazepine Time Since Last Dose 2099, Carbamazepine Last Dose Date 12.17.18 12/21/18 06:12: Thyroid Stimulating Hormone (TSH) 2.41 12/24/18 06:12: Fasting Glucose 76, Hemoglobin A1c 5.6 Medications (Trade) Dose Ordered Sig/Tere Route PRN Reason Start Time Stop Time Status Last Admin Dose Admin Acetaminophen (Tylenol(*)325 Mg Tab (Or Equiv)) 650 mg Q6H PRN PO FEVER/PAIN 12/10/18 10:50 01/09/19 10:49 12/24/18 07:51 Al Hydrox/Mg Hydrox/Simethicone (Maalox(*) 30 ml Udcup (Or Equiv)) 30 ml Q4H PRN PO DYSPEPSIA 12/10/18 10:50 01/09/19 10:49 12/23/18 12:12 Bupropion HCl (Wellbutrin 75 Mg Tab (Or Equiv)) 75 mg DAILY PO 12/16/18 11:30 12/18/18 12:13 DC 12/18/18 08:06 Carbamazepine (TEGretol 100 MG CHEW (OR EQUIV)) 100 mg BID PO 12/21/18 21:00 12/23/18 09:01 DC 12/23/18 07:52 Carbamazepine (TEGretol(*)200 MG TAB (OR EQUIV)) 200 mg BID PO 12/02/18 09:20 12/06/18 15:02 DC 12/06/18 07:37 Chlorpromazine HCl (Thorazine 25 Mg Tab (Or Equiv)) 25 mg STK-MED ONCE .ROUTE 12/23/18 20:50 12/23/18 21:00 DC 12/23/18 20:50 Chlorpromazine HCl (Thorazine(*) 50 Mg/2 ml Amp (Or Equiv)) 100 mg Q6H PRN IM SEVERE AGITATION 12/10/18 10:50 01/09/19 10:49 12/18/18 15:16 Diphenhydramine HCl (Benadryl(*) 25 Mg Cap (Or Equiv)) 50 mg ONCE ONCE PO 11/22/18 21:00 11/22/18 21:01 DC 11/22/18 20:21 Diphenhydramine HCl (Benadryl(*) 50 Mg/ml Vial (Or Equiv)) 50 mg Q6H PRN IM AGITATION 12/11/18 11:25 01/10/19 11:24 12/18/18 15:16 Docusate Sodium (Colace(*) 100 Mg Cap (Or Equiv)) 100 mg BID PO 12/23/18 21:00 01/22/19 20:59 12/28/18 08:48 Doxycycline Hyclate (Vibramycin(*) 100 Mg Tab (Or Equiv)) 100 mg DAILY PO 12/28/18 09:00 01/11/19 08:59 12/28/18 08:48 Hydrocortisone (Cortisone 1% Cr 28.35 Gm Tube (Or Equiv)) APPLY TO AFFECTED AREAS BID PRN TP irritation 12/10/18 10:50 01/09/19 10:49 12/28/18 07:57 Influenza Virus Vaccine Quadrival (Flu Vac ([id number] Formula)) 0.5 ml ONCE ONCE IM ONLY 11/27/18 11:10 11/27/18 11:12 DC 11/27/18 11:50 Lorazepam (Ativan(*) 1 Mg Tab (Or Equiv)) 2 mg TID PO 12/25/18 14:00 01/07/19 08:59 12/28/18 08:49 Lorazepam (Ativan(*) 2 Mg/ ml Vial (Or Equiv)) 2 mg Q6H PRN IM ANXIETY 12/10/18 10:50 01/24/19 10:49 12/18/18 15:15 Lurasidone HCl (Latuda 40 Mg Tab(Or Equiv)) 60 mg BIDBS PO 12/26/18 17:00 01/25/19 16:59 12/28/18 08:49 Olanzapine (zyPREXA (OR EQUIV)) 10 mg Q6H PRN PO AGITATION 12/10/18 10:55 12/11/18 11:40 DC 12/11/18 02:37 Olanzapine (zyPREXA(*) (OR EQUIV)) 10 mg Q6H PRN IM ONLY SEVERE AGITATION 12/03/18 23:30 12/07/18 10:11 DC 12/06/18 12:03 Ondansetron HCl (Zofran(*) 4 Mg Odt(Or Equiv)) 4 mg ONCE ONCE SL 12/27/18 17:25 12/27/18 17:38 DC 12/27/18 17:43 Prazosin HCl (Minipress 1 Mg Cap (Or Equiv)) 1 mg QHS PO 11/27/18 21:00 12/02/18 06:24 DC 12/01/18 20:15 Quetiapine Fumarate (SEROquel 100 MG TAB (OR EQUIV)) 100 mg QHS PO 12/27/18 21:00 12/28/18 20:59 12/27/18 20:30 Spironolactone (Aldactone 25 Mg Tab (Or Equiv)) 100 mg BID PO 12/27/18 21:00 01/26/19 20:59 12/28/18 08:49 Sterile Water (Sterile Water Injection(*) 10 ml Vial) 2.1 ml Q6H PRN IM ONLY AGITATION 12/03/18 23:30 12/07/18 10:11 DC 12/06/18 12:02 [facility] Assessment and Plan [id number] Encounter Date: Dec 28, 2018 [id number] Encounter Time: 09:31 [facility] Plan: Necessary Precautions, Individual/Group Therapy, Admin/Titrate Meds, Educate Patient Tobacco Medications: Started Multpiple Antipsychotics Used: Yes Reason For >1 Antipsychotic: Cross taper Problems: (1) Schizoaffective disorder, bipolar type Status: Chronic Condition Continue Lurasidone 60 mg po bid Continue Lorazepam 2mg po bid Ongoing coordination of care with DANIEL HERNANDEZ NP Dec 28, 2018 09:42
[2018-12-28] MEDS ORDERED: LORazepam 1 MG TAB PO PRN (13:40)
[2018-12-28] MEDS ORDERED: LORazepam 2 MG/ML VIAL IM PRN (13:40)
[2018-12-28] MEDS ORDERED: MAG HYD/AL HYD/SIMETH 30ML UDC PO PRN (13:40)
[2018-12-28] MEDS ORDERED: diphenhydrAMINE 50 MG/ML VIAL IM PRN (13:40)
[2018-12-28] MEDS ORDERED: chlorproMAZINE 25 MG TAB PO PRN (13:40)
[2018-12-28] MEDS ORDERED: HYDROCORTISONE 1% CR 28.35 GM TP PRN (13:40)
[2018-12-28] MEDS ORDERED: ACETAMINOPHEN 325 MG TAB PO PRN (13:40)
[2018-12-28] MEDS ORDERED: hydrOXYzine PAMOATE 25 MG CAP PO PRN (13:40)
[2018-12-28] MEDS ORDERED: diphenhydrAMINE 50 MG/ML VIAL IM SCH (14:00)
[2018-12-28] MEDS ORDERED: chlorproMAZINE 25 MG TAB PO SCH (14:00)
[2018-12-28] MEDS ORDERED: ACETAMINOPHEN 325 MG TAB PO SCH (14:00)
[2018-12-28] MEDS ORDERED: DOCUSATE SODIUM 100 MG CAP PO SCH ×2 (14:00)
[2018-12-28] MEDS ORDERED: SPIRONOLACTONE 25 MG TAB PO SCH (14:15)
[2018-12-28] MEDS ORDERED: hydrOXYzine PAMOATE 25 MG CAP PO SCH (14:15)
[2018-12-28] MEDS ORDERED: LURASIDONE 40 MG TAB PO SCH ×2 (14:15)
[2018-12-28] MEDS ORDERED: MAG HYD/AL HYD/SIMETH 30ML UDC PO SCH (14:15)
[2018-12-28] MEDS ORDERED: LORazepam 2 MG/ML VIAL IM SCH (14:15)
[2018-12-28] MEDS ORDERED: LORazepam 1 MG TAB PO SCH ×2 (14:15)
[2018-12-28] MEDS ORDERED: QUEtiapine FUM 100 MG TAB PO SCH ×3 (14:15→21:00)
--- NOTE | 2018-12-28 14:46 | NUR ---
At approximately 1240 patient was on the phone yelling, seemingly trying to get a hold of her mother who wants no contact. She began slamming the phone on the counter and then threw it over the counter. She went (on her own) back into Unit C, and the doors were locked behind her. She began screaming and tearing papers apart and throwing them all over her room. Staff left her in her room alone hoping that she would have enough time to calm down. She was crying, and appeared to be calming down when she got up and started slamming the seclusion room door over and over until the latch broke, making the door unusable for a seclusion room. She then came to the nursing station door and began trying to break the door down. When she was unsuccessful she ripped the badge reader out of the wall, exposing the wires. A Code Yellow was called, as well as [place] [employer]. It was decided that the patient would go back to the [facility] [place] to be held until repairs can be made.
[2018-12-29] MEDS: LURASIDONE 40 MG TAB PO SCH (08:00)
[2018-12-29] MEDS: LORazepam 1 MG TAB PO SCH ×3 (08:11→21:00)
[2018-12-29] MEDS: DOCUSATE SODIUM 100 MG CAP PO SCH ×2 (08:11→21:00)
[2018-12-29] MEDS: SPIRONOLACTONE 25 MG TAB PO SCH ×2 (08:11→21:00)
[2018-12-29] MEDS ORDERED: DOXYCYCLINE HYCL 100 MG TAB PO SCH (09:00)
[2018-12-29] MEDS ORDERED: chlorproMAZINE 25 MG TAB PO PRN (17:20)
[2018-12-29] MEDS ORDERED: diphenhydrAMINE 50 MG/ML VIAL IM PRN (17:20)
[2018-12-29] MEDS ORDERED: MAG HYD/AL HYD/SIMETH 30ML UDC PO PRN (17:25)
[2018-12-29] MEDS ORDERED: LORazepam 2 MG/ML VIAL IM PRN (17:25)
[2018-12-29] MEDS ORDERED: hydrOXYzine PAMOATE 25 MG CAP PO PRN (17:25)
--- NOTE | 2018-12-29 18:36 | BHS Progress Note ---
[facility] - Subjective Progress Notes Subjective Patient remains at [facility] after being transported there yesterday 12/28/18 following incident where she became agitated after trying to get ahold of her mother who wants no contact. She began slamming the phone on the counter and then threw it over the counter. She went to [address] and began slamming the seclusion room door and the latch broke making the door unusable for a seclusion room. She ripped the badge reader out of the wall exposing wires. A Code Yellow was called as well as [employer]. The d ecision was made by deputy united [place] marshal and psychological operations officer to transport her to [facility] [place], operated by [facility] until repairs completed on seclusion room. Per prison center staff nuclear weapons officer patient is tearful, cooperative and taking prescribed medications today. Will be transported back to upon seclusion room repair completion. Care and monitoring provided by prison center staff. Physical and mental status exams completed by prison center staff. [facility] - Objective Physical Exam Muscle Strength and Tone: WNL Gait and Station: Steady [facility] Medications Reviewed: Side Effects, Benefits of Medication, Risks Allergies Reviewed: Yes Mental Status Exam General Appearance: Casual, Well Groomed, Good Eye Contact, Cooperative, Polite, Good Interaction; No Tearful; Psychomotor Agitation (Still has some agitation when talking about her experiences at [facility] and in retirement. ) Speech: Clear, Spontaneous, Normal Rate, Normal Rhythm, Normal Volume, Normal Tone; No Rambling Mood: No Euthymic; Other (labile) Affect: Calm, Flat; No Tearful; Anxious, Agitated; No Other Thought Process: Organized, Logical, Goal Directed Thought Content: No Suicidal Ideation, No Homicidal Ideation, No Auditory Halllucinations; Other (still talked about getting sexually explicit messages from staff at the retirement past week) Sensorium: Clear Cognition: Alert & Oriented-Person, Alert & Oriented-Place, Alert & Oriented- Time, [id number]-Rbxylcwc-[id number] Intelligence: Average Insight Judgment: Fair Microbiology Medications (Trade) Dose Ordered Sig/Tere Route PRN Reason Start Time Stop Time Status Last Admin Dose Admin Acetaminophen (Tylenol(*)325 Mg Tab (Or Equiv)) 650 mg Q6H PRN PO FEVER/PAIN 12/10/18 10:50 12/28/18 13:42 DC 12/24/18 07:51 Al Hydrox/Mg Hydrox/Simethicone (Maalox(*) 30 ml Udcup (Or Equiv)) 30 ml Q4H PRN PO DYSPEPSIA 12/10/18 10:50 12/28/18 13:42 DC 12/23/18 12:12 Bupropion HCl (Wellbutrin 75 Mg Tab (Or Equiv)) 75 mg DAILY PO 12/16/18 11:30 12/18/18 12:13 DC 12/18/18 08:06 Carbamazepine (TEGretol 100 MG CHEW (OR EQUIV)) 100 mg BID PO 12/21/18 21:00 12/23/18 09:01 DC 12/23/18 07:52 Carbamazepine (TEGretol(*)200 MG TAB (OR EQUIV)) 200 mg BID PO 12/02/18 09:20 12/06/18 15:02 DC 12/06/18 07:37 Chlorpromazine HCl (Thorazine 25 Mg Tab (Or Equiv)) 25 mg STK-MED ONCE .ROUTE 12/23/18 20:50 12/23/18 21:00 DC 12/23/18 20:50 Chlorpromazine HCl (Thorazine(*) 50 Mg/2 ml Amp (Or Equiv)) 100 mg Q6H PRN IM SEVERE AGITATION 12/10/18 10:50 12/28/18 13:42 DC 12/18/18 15:16 Diphenhydramine HCl (Benadryl(*) 25 Mg Cap (Or Equiv)) 50 mg ONCE ONCE PO 11/22/18 21:00 11/22/18 21:01 DC 11/22/18 20:21 Diphenhydramine HCl (Benadryl(*) 50 Mg/ml Vial (Or Equiv)) 50 mg Q6H PRN IM AGITATION 12/11/18 11:25 12/28/18 13:42 DC 12/18/18 15:16 Docusate Sodium (Colace(*) 100 Mg Cap (Or Equiv)) 100 mg BID PO 12/23/18 21:00 12/28/18 13:42 DC 12/28/18 08:48 Doxycycline Hyclate (Vibramycin(*) 100 Mg Tab (Or Equiv)) 100 mg DAILY PO 12/28/18 09:00 12/28/18 13:42 DC 12/28/18 08:48 Hydrocortisone (Cortisone 1% Cr 28.35 Gm Tube (Or Equiv)) APPLY TO AFFECTED AREAS BID PRN TP irritation 12/10/18 10:50 12/28/18 13:42 DC 12/28/18 07:57 Influenza Virus Vaccine Quadrival (Flu Vac ([id number] Formula)) 0.5 ml ONCE ONCE IM ONLY 11/27/18 11:10 11/27/18 11:12 DC 11/27/18 11:50 Lorazepam (Ativan(*) 1 Mg Tab (Or Equiv)) 2 mg TID PO 12/28/18 14:00 12/29/18 17:20 DC 12/28/18 13:45 Lorazepam (Ativan(*) 2 Mg/ ml Vial (Or Equiv)) 2 mg Q6H PRN IM ANXIETY 12/10/18 10:50 12/28/18 13:42 DC 12/18/18 15:15 Lurasidone HCl (Latuda 40 Mg Tab(Or Equiv)) 60 mg BIDBS PO 12/26/18 17:00 12/28/18 13:42 DC 12/28/18 08:49 Olanzapine (zyPREXA (OR EQUIV)) 10 mg Q6H PRN PO AGITATION 12/10/18 10:55 12/11/18 11:40 DC 12/11/18 02:37 Olanzapine (zyPREXA(*) (OR EQUIV)) 10 mg Q6H PRN IM ONLY SEVERE AGITATION 12/03/18 23:30 12/07/18 10:11 DC 12/06/18 12:03 Ondansetron HCl (Zofran(*) 4 Mg Odt(Or Equiv)) 4 mg ONCE ONCE SL 12/27/18 17:25 12/27/18 17:38 DC 12/27/18 17:43 Prazosin HCl (Minipress 1 Mg Cap (Or Equiv)) 1 mg QHS PO 11/27/18 21:00 12/02/18 06:24 DC 12/01/18 20:15 Quetiapine Fumarate (SEROquel 100 MG TAB (OR EQUIV)) 100 mg QHS PO 12/27/18 21:00 12/28/18 13:42 DC 12/27/18 20:30 Spironolactone (Aldactone 25 Mg Tab (Or Equiv)) 100 mg BID PO 12/27/18 21:00 12/28/18 13:42 DC 12/28/18 08:49 Sterile Water (Sterile Water Injection(*) 10 ml Vial) 2.1 ml Q6H PRN IM ONLY AGITATION 12/03/18 23:30 12/07/18 10:11 DC 12/06/18 12:02 S Assessment and Plan Epcp-wc-Mwau Encounter Date: Dec 29, 2018 [id number]-[id number] Encounter Time: 12:00 [facility] Plan: Necessary Precautions, Individual/Group Therapy, Admin/Titrate Meds, Educate Patient Tobacco Medications: Started Multpiple Antipsychotics Used: Yes Reason For >1 Antipsychotic: Cross taper Problems: (1) Schizoaffective disorder, bipolar type Status: Chronic Condition Will remain at [facility] until seclusion room repairs completed. DANIEL ROMERO NP Dec 29, 2018 18:36
[2018-12-29] MEDS ORDERED: QUEtiapine FUM 100 MG TAB PO SCH (21:00)
[2018-12-30] MEDS: LURASIDONE 40 MG TAB PO SCH ×2 (08:00→17:21)
[2018-12-30] MEDS: DOXYCYCLINE HYCL 100 MG TAB PO SCH (09:00)
[2018-12-30] MEDS: LORazepam 1 MG TAB PO SCH ×3 (09:00→21:16)
[2018-12-30] MEDS: DOCUSATE SODIUM 100 MG CAP PO SCH ×2 (09:00→21:16)
[2018-12-30] MEDS: SPIRONOLACTONE 25 MG TAB PO SCH ×2 (09:00→21:17)
--- NOTE | 2018-12-30 15:30 | NUR ---
Pt brought to [facility] escorted by 2 deputys. Pt handcuffed in front. Escorted back to [facility]. Pt calm and tearful. No aggression or elopement attempt noted Addendum: 12/30/18 at 1720 by STEVE CALI RN Amended: Links added.
--- NOTE | 2018-12-30 15:57 | BHS Progress Note ---
S - Subjective Progress Notes Subjective Pt seen in Unit C. Pt spent last night at [facility] after she had become upset yesterday and caused some damage in Unit C. Now that damage is repaired it is safe to have her returned. She has no complaints, she just returned accompanied by deputies. She says everything is "fine," that she slept well last night, and that her current medications are "fine." Pt is still focused on how upset she is that her mother won't talk to her. Suicidal Ideation: None Homicidal Ideation: None S - Objective Physical Exam Vital Signs Vital Signs 12/27/18 09:00 Temp 98.2 Pulse 115 Resp 18 B/P (MAP) 112/78 (89) Pulse Ox 93 O2 Delivery Room Air Muscle Strength and Tone: WNL Gait and Station: Steady [facility] Medications Reviewed: Side Effects, Benefits of Medication, Risks Allergies Reviewed: Yes Mental Status Exam General Appearance: Casual, Well Groomed, Cooperative, Polite, Good Interaction Speech: Clear, Spontaneous, Normal Rate, Normal Rhythm, Normal Volume, Normal Tone Mood: Dysthmic/Depressed Affect: Calm, Flat Thought Process: Organized, Logical, Goal Directed Thought Content: No Suicidal Ideation, No Homicidal Ideation; Delusions; No Auditory Halllucinations, No Visual Hallucinations, No Thought Broadcasting, No Ideas of Reference, No Obsessions, No Compulsions Sensorium: Clear Cognition: Alert & Oriented-Person, Alert & Oriented-Place, Alert & Oriented- Time, Gmhxu-Zoxjappz-Prchsseao Memory: Immediate, Recent, Remote Intelligence: Average Insight Judgment: Fair [facility] Assessment and Plan Oqte-ad-Xioi Encounter Date: Dec 30, 2018 Tvim-[id number] Encounter Time: 16:00 [facility] Plan: Necessary Precautions, Individual/Group Therapy, Admin/Titrate Meds, Educate Patient Tobacco Medications: Started Multpiple Antipsychotics Used: Yes Reason For >1 Antipsychotic: Cross taper Problems: (1) Schizoaffective disorder, bipolar type Status: Chronic GEO MARION MD Dec 30, 2018 15:57
--- NOTE | 2018-12-30 17:50 | NUR ---
Pt becoming agitated due to constant esther hammering x 45min. Pt also states she cannot shut her mind off, continues to think. Pt asking for IM medication. Dr. Navarro notified. Ordered received. For Pt to choose between Thorazine and Ativan. Pt choose to have Thorazine 100mg IM, IM medication given Bilaterally without problems.
[2018-12-30] MEDS: ACETAMINOPHEN 325 MG TAB PO PRN (18:06)
[2018-12-31] MEDS: LURASIDONE 40 MG TAB PO SCH ×2 (07:49→17:16)
[2018-12-31] MEDS: DOCUSATE SODIUM 100 MG CAP PO SCH ×2 (07:50→21:00)
[2018-12-31] MEDS: SPIRONOLACTONE 25 MG TAB PO SCH ×2 (07:50→20:57)
[2018-12-31] MEDS: HYDROCORTISONE 1% CR 28.35 GM TP PRN (07:50)
[2018-12-31] MEDS: DOXYCYCLINE HYCL 100 MG TAB PO SCH (07:50)
[2018-12-31] MEDS: LORazepam 1 MG TAB PO SCH ×3 (07:50→20:56)
[2018-12-31 10:47] VITALS: BP 104/84
[2018-12-31] MEDS: LORazepam 1 MG TAB PO PRN (15:24)
[2018-12-31] MEDS: PANTOPRAZOLE SOD 40 MG TABEC PO SCH (16:43)
--- NOTE | 2018-12-31 17:33 | NUR ---
Pt ate tray and 2 candy bars. States she vomited. It was observed. States she now feels very full. will continue to monitor
--- NOTE | 2018-12-31 18:26 | NUR ---
Pt states her stomach still feels full and her head feels funny. She stated "I made myself vomit because stomach felt bad"
--- NOTE | 2018-12-31 18:54 | BHS Progress Note ---
[facility] - Subjective Progress Notes Subjective Pt seen in Unit C. She reports "good" mood today, slept well, there has been no aggression. We discussed her potential transfer to [place], possibly this week-- she was positive, future-oriented, hopeful that she might be able to discharge from there to a senior living. She still reports delusions, cisco in the evenings, but says they have been less intense and less frequent since switching over to latuda. We just DC'd last 100 mg of seroquel last night. Last night she was somewhat agitated, anxious, requesting IM medication. We gave her choice of IM or po, she did choose chlorpromazine 100 mg IM and today reports it was effective, helped her to calm down. Discussed options to help her settle at night without requiring IM medications, she would like to try adding Melatonin 9 mg tonight. Awaiting transfer to [place]. Suicidal Ideation: None Homicidal Ideation: None [facility] - Objective Physical Exam Vital Signs Vital Signs 12/27/18 12/31/18 09:00 10:47 Temp 97.7 Pulse 114 Resp 18 B/P (MAP) 104/84 (91) Pulse Ox 97 O2 Delivery Room Air Muscle Strength and Tone: WNL Gait and Station: Steady [facility] Medications Reviewed: Side Effects, Benefits of Medication, Risks Allergies Reviewed: Yes Mental Status Exam General Appearance: Casual, Well Groomed, Cooperative, Polite, Good Interaction Speech: Clear, Spontaneous, Normal Rate, Normal Rhythm, Normal Volume, Normal Tone Mood: Dysthmic/Depressed, Other (but a little brighter today) Affect: Calm, Flat Thought Process: Organized, Logical, Goal Directed Thought Content: No Suicidal Ideation, No Homicidal Ideation; Delusions (still ideas of reference overall less intense/frequent); No Auditory Halllucinations, No Visual Hallucinations, No Thought Broadcasting, No Ideas of Reference, No Obsessions, No Compulsions Sensorium: Clear Cognition: Alert & Oriented-Person, Alert & Oriented-Place, Alert & Oriented- Time, Qxnni-Ttzgslou-Tpvgamqdg Memory: Immediate, Recent, Remote Intelligence: Average Insight Judgment: Fair S Assessment and Plan Tbzt-jq-Mlux Encounter Date: Dec 31, 2018 Eqam-[id number] Encounter Time: 10:00 S Plan: Necessary Precautions, Individual/Group Therapy, Admin/Titrate Meds, Educate Patient Tobacco Medications: Started Multpiple Antipsychotics Used: No Reason For >1 Antipsychotic: Cross taper Problems: (1) Schizoaffective disorder, bipolar type Status: Chronic GEO MARION MD Dec 31, 2018 18:54
[2018-12-31] MEDS: ACETAMINOPHEN 325 MG TAB PO PRN (20:17)
[2018-12-31] MEDS: MELATONIN 3 MG TAB PO SCH (20:57)
[2019-01-01 04:26] VITALS: BP 117/73
[2019-01-01] MEDS: DOCUSATE SODIUM 100 MG CAP PO SCH ×3 (08:09→21:00)
[2019-01-01] MEDS: DOXYCYCLINE HYCL 100 MG TAB PO SCH (08:10)
[2019-01-01] MEDS: PANTOPRAZOLE SOD 40 MG TABEC PO SCH (08:10)
[2019-01-01] MEDS: SPIRONOLACTONE 25 MG TAB PO SCH ×2 (08:11→20:15)
[2019-01-01] MEDS: LORazepam 1 MG TAB PO SCH ×3 (08:11→20:16)
[2019-01-01] MEDS: LURASIDONE 40 MG TAB PO SCH ×2 (08:12→17:13)
[2019-01-01] MEDS: HYDROCORTISONE 1% CR 28.35 GM TP PRN (08:23)
[2019-01-01] MEDS: ACETAMINOPHEN 325 MG TAB PO PRN (12:19)
[2019-01-01] MEDS ORDERED: LOPERAMIDE HCL 2 MG CAP PO ONE (12:25)
[2019-01-01] MEDS: LOPERAMIDE HCL 2 MG CAP PO PRN ×3 (13:54→20:15)
--- NOTE | 2019-01-01 14:14 | BHS Progress Note ---
S - Subjective Progress Notes Subjective Pt seen in her room; she is now out of Unit C since last night, and has done very well in the [place], there has been no agitation. She is looking forward to going to [facility] tomorrow, she says she will have more room there and not feel so confined. She c/o some diarrhea today and we ordered immodium. Continue current tx plan. Suicidal Ideation: None Homicidal Ideation: None S - Objective Physical Exam Vital Signs Vital Signs 01/01/19 04:26 Temp 98.1 Pulse 93 Resp 15 B/P (MAP) 117/73 (88) Pulse Ox 94 O2 Delivery Room Air Muscle Strength and Tone: WNL Gait and Station: Steady [facility] Medications Reviewed: Side Effects, Benefits of Medication, Risks Allergies Reviewed: Yes Mental Status Exam General Appearance: Casual, Well Groomed, Cooperative, Polite, Good Interaction Speech: Clear, Spontaneous, Normal Rate, Normal Rhythm, Normal Volume, Normal Tone Mood: Dysthmic/Depressed, Other (but a little brighter today) Affect: Calm, Flat Thought Process: Organized, Logical, Goal Directed Thought Content: No Suicidal Ideation, No Homicidal Ideation; Delusions (still ideas of reference overall less intense/frequent); No Auditory Halllucinations, No Visual Hallucinations, No Thought Broadcasting, No Ideas of Reference, No Obsessions, No Compulsions Sensorium: Clear Cognition: Alert & Oriented-Person, Alert & Oriented-Place, Alert & Oriented- Time, Stbrt-Bfklxvao-Aatqtexoi Memory: Immediate, Recent, Remote Intelligence: Average Insight Judgment: Fair [facility] Assessment and Plan Vmvk-[id number]-Dizq Encounter Date: Jan 01, 2019 Zgfs-[id number]-Jrse Encounter Time: 11:00 [facility] Plan: Necessary Precautions, Individual/Group Therapy, Admin/Titrate Meds, Educate Patient Tobacco Medications: Started Multpiple Antipsychotics Used: No Reason For >1 Antipsychotic: Cross taper Problems: (1) Schizoaffective disorder, bipolar type Status: Chronic GEO MARION MD Jan 01, 2019 14:14
[2019-01-01] MEDS: MELATONIN 3 MG TAB PO SCH (20:15)
[2019-01-02] MEDS: LORazepam 1 MG TAB PO PRN (01:05)
[2019-01-02] MEDS: ACETAMINOPHEN 325 MG TAB PO PRN (01:05)
[2019-01-02] MEDS: LURASIDONE 40 MG TAB PO SCH (08:04)
[2019-01-02] MEDS: SPIRONOLACTONE 25 MG TAB PO SCH (08:04)
[2019-01-02] MEDS: DOCUSATE SODIUM 100 MG CAP PO SCH (08:06)
[2019-01-02] MEDS: PANTOPRAZOLE SOD 40 MG TABEC PO SCH (08:06)
[2019-01-02] MEDS: LORazepam 1 MG TAB PO SCH (08:06)
[2019-01-02] MEDS: DOXYCYCLINE HYCL 100 MG TAB PO SCH (08:06)
[2019-01-02] MEDS: LOPERAMIDE HCL 2 MG CAP PO PRN (08:27)
[2019-01-02] MEDS ORDERED: SPIR25TA76 PO (09:30)
[2019-01-02] MEDS ORDERED: LORA-1458 PO (09:30)
[2019-01-02] MEDS ORDERED: LURA40TA3 PO (09:31)
[2019-01-02] MEDS ORDERED: DOXY-1 PO (09:32)
[2019-01-02] MEDS ORDERED: MELA3TAB31 PO (09:32)
[2019-01-02] MEDS ORDERED: PANT40TA65 PO (09:32)
[2019-01-02] MEDS ORDERED: LORA-1456 PO (09:33)
[2019-01-02] MEDS ORDERED: HYDR28CR TP (09:34)
[2019-01-02] MEDS ORDERED: LOPE-111 PO (09:35)
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
== END 2019-01-02 11:58 | DRG 885 ==
LOC: BHS 13:37 → UNDODISIN 12-07 15:50 → BHS 12-10 17:47
PROVIDERS: ADMIT Psychiatry & Neurology Psychiatry; ATTEND Psychiatry & Neurology Psychiatry
DX: F25.0 Schizoaffective disorder, bipolar type (principal); R45.851 Suicidal ideations; E66.9 Obesity, unspecified; F91.8 Other conduct disorders; L70.9 Acne, unspecified; R73.9 Hyperglycemia, unspecified; Z91.5 Personal history of self-harm; Z81.8 Family history of other mental and behavioral disorders; Z91.040 Latex allergy status; Z88.5 Allergy status to narcotic agent; Z88.8 Allergy status to other drugs, medicaments and biological substances; Z68.35 Body mass index [BMI] 35.0-35.9, adult; Z62.810 Personal history of physical and sexual abuse in childhood
CPT/HCPCS: 36415; 80156; 82040; 82247; 82306; 82310; 82374; 82435; 82465; 82565; 82947; 83036; 83718; 84075; 84132; 84155; 84295; 84439; 84443; 84450; 84460; 84478; 84481; 84520; 85025; 86580; 90471; 90674; 93005; A4216; J1200; J2060; J3230; J3490; Q0161; Q0163; Q0177; S0119

== ENCOUNTER 2018-12-07 19:40 | Outpatient (RCR) | payer MEDICAID, OTHER ==
[~2018-12-07 19:40] MED LIST changes: +ACET-1966 PO; +CARB-82 PO; +DIPH50DI IM; +DOXY-1 PO; +HYDROCORTISONE 1% CR 28.35 GM TP SCH; +LORA-1458 PO; +LORA2VIA2 IM; +LORazepam 2 MG/ML VIAL IM SCH; +MAG-66 PO; +PRAZ1CAP26 PO; +SPIR100T33 PO; +SPIRONOLACTONE 25 MG TAB PO SCH; +[UNRECOGNIZED DRUG - CODE] TP; +carBAMazepine 100 MG CHEW PO SCH; +chlorproMAZINE 25 MG TAB PO SCH; +diphenhydrAMINE 50 MG/ML VIAL IM SCH
[2018-12-07] MEDS ORDERED: chlorproMAZINE 25 MG TAB PO SCH (20:11)
== END 2018-12-17 08:36 | disposition home or self-care (01) ==
LOC: SPU 19:40
PROVIDERS: ATTEND Nurse Practitioner Psychiatric/Mental Health
DX: R45.1 Restlessness and agitation (principal)
CPT/HCPCS: J1200; J2060; J3230; Q0161